=== PATIENT | female | born 1965 | race Caucasian/White ===

== ENCOUNTER → 2016-08-11 | Outpatient (CLI) | payer OTHER ==
--- NOTE | 2016-08-11 14:54 | XR ---
Right elbow HISTORY: Right elbow plain, M25.521 3 views of the right elbow No comparisons Bone mineralization, joint spaces and alignment are maintained. No evident joint effusion. There is o verlying artifact. IMPRESSION: No osseous abnormality evident, consider elbow MRI as indicated
== END | disposition home or self-care (01) ==
LOC: RADXRMAIN 13:07
PROVIDERS: ATTEND Pediatrics
DX: M25.521 Pain in right elbow (principal)

== ENCOUNTER → 2016-09-04 | Outpatient (CLI) | payer OTHER ==
--- NOTE | 2016-09-05 02:09 | MR ---
EXAMINATION TYPE: MR elbow RT wo con DATE OF EXAM: 09/04/2016 9:25 PM COMPARISON: NONE HISTORY: Rt elbow pain x 2 weeks Standard multiplanar, multisequence MRI departmental protocol Multiplanar, multisequence images of the right elbow were acquired. FINDINGS: Bony structures appear intact. Joint spaces appear normal. There is a small elbow joint eff usion. There is mild increased signal in the soft tissues at the lateral collateral ligament. Radial head is intact. I see no focal bone destruction. There is no sign of fracture. Biceps tendon is intac t. Triceps tendon is intact. Brachialis tendon is intact. IMPRESSION: No fracture. Small elbow joint effusion. Mild edema seen around the lateral collateral ligament sugge stive of a partial tear.
== END | disposition home or self-care (01) ==
LOC: RADMRIMAIN 20:38
PROVIDERS: ATTEND Pediatrics
DX: M25.421 Effusion, right elbow (principal)

== ENCOUNTER → 2019-01-31 | Outpatient (CLI) | payer MEDICARE, OTHER ==
--- NOTE | 2019-02-04 08:00 | MM ---
Reason for exam: screening (asymptomatic). Last mammogram was performed 5 years and 4 months ago. History: Patient is postmenopausal and is nulliparous. Family history of breast cancer in paternal aunt at age 60. Physical Findings: A clinical breast exam by your physician is recommended on an annual basis and results should be correlated with mammographic findings. MG 3D Screening Mammo W/Cad Bilateral CC and MLO view(s) were taken. Prior study comparison: October 16, 2013, bilateral digital screening mammo w/CAD. November 11, 2007, mammogram, performed at [facility]. The breast tissue is heterogeneously dense. This may lower the sensitivity of mammography. Focal asymmetry central upper inner quadrant left breast appears more defined. ASSESSMENT: Incomplete: need additional imaging evaluation, BI-RAD 0 RECOMMENDATION: Special view mammogram of the left breast. (3D) If lesion persists on supplemental views, image directed ultrasound is recommended. [facility] will attempt to contact patient to return for supplemental views and ultrasound if indicated.
== END | disposition home or self-care (01) ==
LOC: RADMAMWWP 13:06
PROVIDERS: ATTEND Pediatrics
DX: Z12.31 Encounter for screening mammogram for malignant neoplasm of breast (principal)
CPT/HCPCS: 77063; 77067

== ENCOUNTER → 2019-02-04 | Outpatient (CLI) | payer MEDICARE, OTHER ==
--- NOTE | 2019-02-04 14:10 | MM ---
Reason for exam: additional evaluation requested from abnormal screening. Last mammogram was performed less than 1 month ago. History: Patient is postmenopausal and is nulliparous. Family history of breast cancer in paternal aunt at age 60. Physical Findings: Nurse did not find any significant physical abnormalities on exam. MG 3D Work Up W/Cad LT Spot compression CC, spot compression MLO, and LM view(s) were taken of the left breast. Prior study comparison: January 31, 2019, bilateral MG 3d screening mammo w/cad. October 16, 2013, bilateral digital screening mammo w/CAD. The breast tissue is heterogeneously dense. This may lower the sensitivity of mammography. Benign appearing calcifications in the left breast. The previously seen abnormality resolves on additional views and appears as fibroglandular tissue compatible with summation. No suspicious abnormality. These results were verbally communicated with the patient and result sheet given to the patient on 02/04/19. ASSESSMENT: Benign, BI-RAD 2 RECOMMENDATION: Return to routine screening mammogram schedule for both breasts.
== END | disposition home or self-care (01) ==
LOC: RADMAMWWP 13:11
PROVIDERS: ATTEND Pediatrics
DX: R92.8 Other abnormal and inconclusive findings on diagnostic imaging of breast (principal)
CPT/HCPCS: 77065; G0279; 77061

== ENCOUNTER → 2019-06-03 | Outpatient (CLI) | payer MEDICARE, OTHER ==
--- NOTE | 2019-06-03 16:01 | XR ---
Cervical spine HISTORY: Increasing neck pain aside 5 views of the cervical spine There is multilevel facet arthropathy. The oblique view shows some foraminal encroachment on the righ t at C3-4, C4-5, the left foramina are not as well defined. There is multilevel spondylosis. Anteroli sthesis grade 1 present at C3-4, C4-5 and C5-6. There is loss of disc height at intervertebral at the se levels. Cervical vertebral bodies show preserved height. Bone mineralization is maintained. Prever tebral soft tissues are normal. IMPRESSION: Degenerative disc disease, facet arthropathy, multilevel foraminal encroachment.
--- NOTE | 2019-06-03 16:04 | XR ---
Thoracic spine HISTORY: Mid back pain 3 views of the thoracic spine Thoracic vertebral bodies show preserved height and alignment, bone mineralization. There is multilev el spondylosis present. No paraspinal mass. Some loss of disc height present at the intervertebral le vels of the upper thoracic spine. IMPRESSION: Degenerative disc disease.
--- NOTE | 2019-06-03 16:04 | XR ---
Shoulder HISTORY: Pain 3 views of the left shoulder Arthropathy is present at the acromion clavicular joint. Alignment is maintained. Soft tissue calcifi cation is present just inferior to the distal left clavicle which may be due to calcific tendinitis. Left lung apex as visualized is normal. Bone mineralization is normal. Joint spaces are maintained. D istal acromial spur suspected. IMPRESSION: Correlate for impingement, possible calcific tendinopathy. Shoulder MRI may be of benefit .
== END | disposition home or self-care (01) ==
LOC: RADXRMAIN 11:56
PROVIDERS: ATTEND Physician Assistant
DX: M48.02 Spinal stenosis, cervical region (principal); M50.30 Other cervical disc degeneration, unspecified cervical region; M51.34 Other intervertebral disc degeneration, thoracic region; M46.92 Unspecified inflammatory spondylopathy, cervical region
CPT/HCPCS: 72050; 72070

== ENCOUNTER 2019-07-06 21:20 | Emergency (ER) | payer MEDICARE, OTHER ==
[2019-07-06 21:29] VITALS: PULSE 98; RESP 20; TEMP 98.3
[2019-07-06] MEDS ORDERED: cloNIDine HCL 0.1 MG TAB PO STA (21:39)
[2019-07-06] MEDS ORDERED: LIDOCAINE 1%-EPI 1:100,000 20 ML VIAL SQ STA (21:43)
--- NOTE | 2019-07-06 21:52 | ED ---
ENT HPI - General Chief complaint: ENT Stated complaint: nose bleed Time Seen by Provider: 07/06/19 21:37 Source: patient, family Mode of arrival: ambulatory Limitations: no limitations - History of Present Illness Initial comments: Sherley is a pleasant 44-year-old female who presents the emergency department today for evaluation of nosebleed. Patient reports that her nose is been bleeding for 3-4 hours. She reports that she dabs it with the tissue noted that there is blood. This is been happening throughout the evening. She does report that recently she's had a very dry no she's been using her humidifier putting Vaseline in her nose due to dryness. Patient is not on any anticoagulant or antiplatelet medications. - Related Data Previous Rx's Medication Instructions Recorded Cephalexin [Keflex] 500 mg PO Q12HR 3 Days #6 cap 07/06/19 Allergies Allergy/AdvReac Type Severity Reaction Status Date / Time No Known Allergies Allergy Verified 07/06/19 22:38 Review of Systems ROS Statement: Those systems with pertinent positive or pertinent negative responses have been documented in the HPI. ROS Other: All systems not noted in ROS Statement are negative. Past Medical History Past Medical History: Hyperlipidemia, Hypertension Additional Past Medical History / Comment(s): nose bleeds, depression History of Any Multi-Drug Resistant Organisms: None Reported Past Surgical History: No Surgical Hx Reported Past Psychological History: Anxiety, Depression Smoking Status: Never smoker Past Alcohol Use History: Occasional Past Drug Use History: None Reported General Exam - General Exam Comments Initial Comments: Physical Exam GENERAL: Patient is well-developed and well-nourished. Patient is nontoxic and well-hydrated and is in no distress. HENT: Normocephalic, Atraumatic. Dark venous oozing from anterior septum EYES: PERRL, EOMI No conjunctival pallor PULMONARY: Unlabored respirations. CARDIOVASCULAR: RRR Warm and well perfused extremities ABDOMEN: Non-distended SKIN: No rashes or bruising : Deferred NEUROLOGIC: Alert and oriented Normal speech Normal gait MUSCULOSKELETAL: Moving all extremities with no apparent injury PSYCHIATRIC: No SI/HI Limitations: no limitations Course Vital Signs 07/06/19 07/06/19 07/06/19 21:22 21:41 22:33 Temperature 98.3 F Pulse Rate 98 Respiratory 20 20 Rate Blood Pressure 218/93 187/97 155/84 O2 Sat by Pulse 97 Oximetry 07/06/19 22:47 Temperature Pulse Rate Respiratory 20 Rate Blood Pressure O2 Sat by Pulse Oximetry Medical Decision Making - Medical Decision Making Patient was seen and evaluated history is obtained from the patient. Patient is had venous oozing from her anterior septum for 3-4 hours prior to arrival. Hypertensive otherwise stable. Estimated blood loss was less than 10 mL's over 3-4 hours based on the amount of bleeding she has in the tissues with blood on him she brought with her. Patient has been repeatedly wiping her nose has an appointment any pressure. Post placed onpatient was reevaluated bleeding seemed to have ceased however patient immediately began using a tissue sick her finger up her nose and again began bleeding. Nose was packed with gauze soaked in lidocaine with epinephrine and nasal clamp was again reapplied. Once again on reevaluation that didn't seem to be any active bleeding initially however with any gentle manipulation the nose began bleeding. Decision was made to place anterior packing. Anterior packing was placed. Bleeding ceased. Patient tolerated the procedure well. Follow-up Return parameters were discussed. Patient was given a prescription for Keflex. Patient's and her scheduled to see her primary care physician tomorrow. I advised him to discuss blood pressure management. Follow-up again on Sunday for packing removal. Disposition Clinical Impression: Epistaxis Disposition: HOME SELF-CARE Condition: Stable Instructions (If sedation given, give patient instructions): Nosebleed (ED) Additional Instructions: Follow up with your PCP later this week for removal of the packing on Sunday Take the antibiotics to prevent infection If your nose begins to bleed again, apply the clamp and rest with your head leaned forward If bleeding persists for >30 min after you apply the clamp return to the ER for re-evaluation If you develop any chest pain, shortness of breath, lightheadedness or feel like you are going to pass out, return to the ER Prescriptions: Cephalexin [Keflex] 500 mg PO Q12HR 3 Days #6 cap Is patient prescribed a controlled substance at d/c from ED?: No Referrals: None,Stated [REFERRING] - 1-2 days
[2019-07-06 22:33] VITALS: BP 155/84
== END 2019-07-06 22:51 | disposition home or self-care (01) ==
LOC: EC 21:20
DX: R04.0 Epistaxis (principal); I10 Essential (primary) hypertension
CPT/HCPCS: 30901; 99283

== ENCOUNTER 2019-08-04 07:42 | Day surgery (SDC) | payer MEDICARE, OTHER ==
[2019-07-29 11:27] VITALS: BMI 31.8
[~2019-08-04 07:42] MED LIST: LACTATED RINGERS 1,000 ML IV SCH; LIDOCAINE 1% 20 ML VIAL (10MG/ML) FOR IV START INTRADERMA PRN
[2019-08-04 08:04] VITALS: TEMP 97.9
[2019-08-04] MEDS ORDERED: PROPOFOL 10 MG/ML 20 ML VIAL IV ONE (08:30)
--- NOTE | 2019-08-04 09:01 | P.PCN ---
Date of Procedure: 08/04/19 Description of Procedure: BRIEF HISTORY: Patient is a 54-year-old pleasant female scheduled for an elective colonoscopy as a part of follow-up of positive Cologard. Patient denies any prior endoscopies. No change in bowel habits, blood per rectum or abdominal pain. No family history of colon cancer. The patient was on iron supplementation reports that bowel movements where darker one stool was tested with the Cologard. PROCEDURE PERFORMED: Colonoscopy. PREOPERATIVE DIAGNOSIS: Positive Cologard, no prior colonoscopies. ESTIMATED BLOOD LOSS: Minimal. IV sedation per Anesthesia. PROCEDURE: After informed consent was obtained, the patient, was brought into the endoscopy unit. IV sedation was administered by Anesthesia under continuous monitoring. Digital rectal examination was normal. Initially the Olympus CF-190 flexible video colonoscope was then inserted in the rectum, gradually advanced into the cecum without any difficulty. Careful examination was performed as the scope was gradually being withdrawn. Ileocecal valve and the appendiceal orifice were vis ualized and appeared normal. Prep was excellent. Mucosa of the cecum, ascending colon, transverse colon, descending colon, sigmoid colon, and rectum appeared normal. A few scattered sigmoid diverticula noted. Retroflexion was performed in the rectum and no lesions were seen., Low-grade internal hemorrhoids noted The patient tolerated the procedure well. IMPRESSION: Normal-appearing colon from rectum to cecum. Mild sigmoid diverticulosis. RECOMMENDATIONS: Findings of this examination were discussed with the patient and her brother. Okay to resume diet. Okay to resume medications. Would recommend repeat colonoscopy in 10 years or sooner if signs or symptoms which was further evaluation develop.
[2019-08-04 09:16] VITALS: BP 150/80; PULSE 73; RESP 15
== END 2019-08-04 09:49 | disposition home or self-care (01) ==
LOC: ORWHC2ENDO 07:42
PROVIDERS: ATTEND Internal Medicine
DX: K57.30 Diverticulosis of large intestine without perforation or abscess without bleeding (principal); K64.8 Other hemorrhoids; I10 Essential (primary) hypertension; E78.5 Hyperlipidemia, unspecified; F32.9 Major depressive disorder, single episode, unspecified; Z79.899 Other long term (current) drug therapy; Z98.890 Other specified postprocedural states
CPT/HCPCS: 45378; J2704

== ENCOUNTER → 2019-08-08 | Outpatient (CLI) | payer MEDICARE, OTHER ==
--- NOTE | 2019-08-08 10:31 | US ---
EXAMINATION TYPE: US abdomen limited DATE OF EXAM: 08/08/2019 COMPARISON: NONE CLINICAL HISTORY: R19.00 Intra-abdominal and pelvic swelling, mass. Pt states superficial palpable monica mp midline/right ABD x 6 months EXAM MEASUREMENTS: Liver Length: 18.2 cm Gallbladder Wall: 0.2 cm CBD: 0.4 cm Right Kidney: 10.6 x 3.7 x 4.3 cm Pancreas: 4mm pancreatic duct visualized, tail obscured by overlying bowel gas Liver: Enlarged, heterogeneous, possible subtle hypoechoic lesion left anterior lobe= 1.6 x 1.1 x 1. 6 cm Gallbladder: wnl Evidence for sonographic Llamas's sign: No CBD: wnl Right Kidney: No evidence of hydro, hyperechoic lesion mid/medial= 0.8 x 0.7 x 0.7 cm In area pt feels palpable midline/right ABD is a slightly hyperechoic lesion= 1.6 x 0.9 x 1.9 cm ?l ipoma Visualized pancreas is heterogeneous with artifact identified prepped minimally dilated 3 to 4 mm. I feel it is more likely upper limits of normal. Visualized liver is heterogeneously hyperechoic limiti ng evaluation for focal masses. Technologist marked nonspecific 1.6 cm anterior slightly hypoechoic o ariana lesion. No intrahepatic ductal dilatation. Gallbladder seen without gallstones. Technologist cristian s 8mm hyperechoic lesion anteriorly upper midpole level right kidney could reflect angiomyolipoma. To wards end of study available the lesion in subcutaneous tissue just below skin surface favors focal l ipoma. IMPRESSION: As above. Probable benign 1.6 cm on long axis lipoma within subcutaneous tissue anterior palpable abnormality right mid to lower anterior abdominal wall. Probable fatty infiltration of liver . Possible solid masses within liver and right kidney. Further investigation with multiphase contrast -enhanced CT is advised which can also confirm benign lipoma.
== END | disposition home or self-care (01) ==
LOC: RADUSWWP 09:47
PROVIDERS: ATTEND Pediatrics
DX: R19.00 Intra-abdominal and pelvic swelling, mass and lump, unspecified site (principal)
CPT/HCPCS: 76705

== ENCOUNTER → 2019-08-08 | Outpatient (CLI) | payer MEDICARE, OTHER ==
--- NOTE | 2019-08-08 10:39 | XR ---
EXAM TYPE: LUMBAR SPINE X RAY SERIES COMPARISON: NONE HISTORY: Pain TECHNIQUE: 4 views are submitted. FINDINGS: Alignment is anatomic. The pedicles are intact. The transverse processes are intact. There is hype rtrophic and degenerative change of the spine. Severe changes L5-S1. Facet arthropathy noted. IMPRESSION: 1. Multilevel degenerative disc disease and facet arthropathy with severe changes at L5-S1.
--- NOTE | 2019-08-08 10:40 | XR ---
EXAMINATION TYPE: XR Hip Bilateral Complete DATE OF EXAM: 08/08/2019 COMPARISON: NONE HISTORY: Pain TECHNIQUE: 2 views submitted FINDINGS: There is no evidence of erosive change or acute fracture. Hypertrophic change of the acetabulum bilaterally. No erosive changes. Mild concentric narrowing of t he joint space. IMPRESSION: 1. Arthropathy and hypertrophic changes correlate for femoral acetabular impingement.
== END | disposition home or self-care (01) ==
LOC: RADXRMAIN 10:16
PROVIDERS: ATTEND Physician Assistant
DX: M51.37 Other intervertebral disc degeneration, lumbosacral region (principal); M46.97 Unspecified inflammatory spondylopathy, lumbosacral region; M54.9 Dorsalgia, unspecified
CPT/HCPCS: 72110; 73521; 76705

== ENCOUNTER → 2019-08-20 | Outpatient (CLI) | payer MEDICARE, OTHER ==
--- NOTE | 2019-08-21 08:14 | CT ---
EXAMINATION TYPE: CT abdomen pelvis wo/w con DATE OF EXAM: 08/20/2019 COMPARISON: None HISTORY: Right sided abdominal mass. CT DLP: 2205 mGycm CONTRAST: CT scan of the abdomen and pelvis is performed with Oral Contrast and without and with IV Contrast, p atient injected with 100ml mL of Isovue 300. FINDINGS: LUNG BASES-: No visible nodule. No infiltrate. LIVER/GB: No calcified gallstones. No space occupying hepatic lesion. Biliary tree is of normal ca liber. PANCREAS: No inflammation. No distinct mass. SPLEEN: No splenic enlargement. No lesion seen. ADRENALS: No nodule. No thickening. KIDNEYS/BLADDER: No hydronephrosis. No nephrolithiasis. No distinct renal mass. Urinary bladder g rossly unremarkable. BOWEL: Normal appendix. Normal bowel caliber. No inflammation. GENITAL ORGANS: No gross abnormality. LYMPH NODES: No greater than 1cm abdominal or pelvic lymph nodes are appreciated. AORTA: No significant abnormality. OSSEOUS STRUCTURES: No significant abnormality is seen. OTHER: No significant additional abnormality is seen. IMPRESSION: 1. There is no distinct mass identified.
== END | disposition home or self-care (01) ==
LOC: RADCTMAIN 15:34
PROVIDERS: ATTEND Physician Assistant
DX: R19.00 Intra-abdominal and pelvic swelling, mass and lump, unspecified site (principal)
CPT/HCPCS: 74178; Q9967

== ENCOUNTER → 2020-02-06 | Outpatient (CLI) | payer MEDICARE, OTHER ==
--- NOTE | 2020-02-06 13:09 | XR ---
EXAMINATION TYPE: XR chest 2V DATE OF EXAM: 02/06/2020 COMPARISON: NONE HISTORY: Pruritus TECHNIQUE: Frontal and lateral views of the chest are obtained. FINDINGS: There is no focal air space opacity, pleural effusion, or pneumothorax seen. The cardiac silhouette size is within normal limits. The osseous structures are intact. IMPRESSION: No acute cardiopulmonary process.
== END | disposition home or self-care (01) ==
LOC: RADXRMAIN 11:04
PROVIDERS: ATTEND Pediatrics
DX: L29.9 Pruritus, unspecified (principal)
CPT/HCPCS: 71046

== ENCOUNTER → 2020-03-16 | Outpatient (CLI) | payer MEDICARE, OTHER ==
--- NOTE | 2020-03-17 09:35 | MM ---
Reason for exam: screening (asymptomatic). Last mammogram was performed 1 year and 1 month ago. History: Patient is postmenopausal and is nulliparous. Family history of breast cancer in paternal aunt at age 60. Physical Findings: A clinical breast exam by your physician is recommended on an annual basis and results should be correlated with mammographic findings. MG 3D Screening Mammo W/Cad Bilateral CC and MLO view(s) were taken. Prior study comparison: February 04, 2019, left breast MG 3d work up w/cad LT. January 31, 2019, bilateral MG 3d screening mammo w/cad. The breast tissue is heterogeneously dense. This may lower the sensitivity of mammography. Stable benign calcifications. Upper outer quadrant nodule right breast. ASSESSMENT: Incomplete: need additional imaging evaluation, BI-RAD 0 RECOMMENDATION: Special view mammogram and ultrasound of the right breast. [facility] will attempt to contact patient to return for supplemental views and ultrasound.
== END | disposition home or self-care (01) ==
LOC: RADMAMWWP 13:55
PROVIDERS: ATTEND Pediatrics
DX: Z12.31 Encounter for screening mammogram for malignant neoplasm of breast (principal)
CPT/HCPCS: 77063; 77067

== ENCOUNTER → 2020-04-06 | Outpatient (CLI) | payer MEDICARE, OTHER ==
--- NOTE | 2020-04-07 09:05 | MM ---
Reason for exam: additional evaluation requested from abnormal screening. Last mammogram was performed 1 month ago. History: Patient is postmenopausal and is nulliparous. Family history of breast cancer in paternal aunt at age 60. Took hormonal contraceptives for 30 years. Physical Findings: Nurse did not find any significant physical abnormalities on exam. MG 3D Work Up W/Cad RT Spot compression CC, spot compression MLO, and ML view(s) were taken of the right breast. Prior study comparison: March 16, 2020, bilateral MG 3d screening mammo w/cad. February 04, 2019, left breast MG 3d work up w/cad LT. The breast tissue is heterogeneously dense. This may lower the sensitivity of mammography. Finding: There is a 6-7 mm circumscribed oval mass located 6-7 cm from the nipple in the lower outer quadrant, posterior, middle position of the right breast, persists on additional views. These results were verbally communicated with the patient and result sheet given to the patient on 04/06/20. ASSESSMENT: Incomplete: need additional imaging evaluation, BI-RAD 0 RECOMMENDATION: Ultrasound of the right breast.
--- NOTE | 2020-04-07 09:07 | USB ---
Reason for exam: additional evaluation requested from abnormal screening. History: Patient is postmenopausal and is nulliparous. Family history of breast cancer in paternal aunt at age 60. Took hormonal contraceptives for 30 years. US Breast Workup Limited RT Right limited breast ultrasound including focal area of concern, retroareolar and axilla demonstrates a 0.6 x 0.6 x 0.3cm oval, cystic cluster at 8 o'clock and a 1.9 x 2.1 x 1.2cm lymph node at the axilla. These results were verbally communicated with the patient and result sheet given to the patient on 04/06/20. ASSESSMENT: Probably benign, BI-RAD 3 RECOMMENDATION: Follow-up diagnostic mammogram and ultrasound of the right breast in 6 months.
== END | disposition home or self-care (01) ==
LOC: RADMAMWWP 15:06
PROVIDERS: ATTEND Pediatrics
DX: R92.8 Other abnormal and inconclusive findings on diagnostic imaging of breast (principal)
CPT/HCPCS: 77065; 76642; G0279; 77061

== ENCOUNTER → 2020-09-24 | Outpatient (CLI) | payer MEDICARE, OTHER ==
--- NOTE | 2020-09-24 15:13 | XR ---
Left hip history: Trauma 2 months prior, pain 2 views of left hip Bone mineralization and alignment are maintained. Joint space within normal limits. Probable phleboli ths present within the pelvis. IMPRESSION: No fracture or dislocation. MRI may be of benefit.
== END | disposition home or self-care (01) ==
LOC: RADXRMAIN 14:18
PROVIDERS: ATTEND Physician Assistant
DX: M25.552 Pain in left hip (principal)
CPT/HCPCS: 73502

== ENCOUNTER → 2020-11-19 | Outpatient (CLI) | payer MEDICARE, OTHER | END | disposition home or self-care (01) | LOC: LABWHC1 17:00 | PROVIDERS: ATTEND Pediatrics | DX: U07.1 COVID-19 (principal) | CPT/HCPCS: 87502; U0003; C9803; U0005 ==

== ENCOUNTER → 2020-12-14 | Outpatient (CLI) | payer MEDICARE, OTHER ==
--- NOTE | 2020-12-15 09:54 | MM ---
Reason for exam: follow-up at short interval from prior study. Last mammogram was performed 8 months ago. History: Patient is postmenopausal and is nulliparous. Family history of breast cancer in paternal aunt at age 60 and breast cancer in paternal aunt. Took hormonal contraceptives for 30 years. Physical Findings: Nurse did not find any significant physical abnormalities on exam. MG 3D Diag Mammo W/Cad RT CC, MLO, and XCCL view(s) were taken of the right breast. Prior study comparison: April 06, 2020, right breast MG 3d work up w/cad RT. March 16, 2020, bilateral MG 3d screening mammo w/cad. The breast tissue is heterogeneously dense. This may lower the sensitivity of mammography. New nodule 3mm upper inner quadrant 6.5cm from nipple. Stable 9mm nodule 8-9 o'clock 4.5cm from nipple. These results were verbally communicated with the patient and result sheet given to the patient on 12/14/20. ASSESSMENT: Incomplete: need additional imaging evaluation, BI-RAD 0 RECOMMENDATION: Ultrasound of the right breast.
--- NOTE | 2020-12-15 09:58 | USB ---
Reason for exam: additional evaluation requested from abnormal screening. History: Patient is postmenopausal and is nulliparous. Family history of breast cancer in paternal aunt at age 60 and breast cancer in paternal aunt. Took hormonal contraceptives for 30 years. US Breast Limited RT Technologist: Samira Lim Right limited breast ultrasound including focal area of concern, retroareolar and axilla demonstrates a 0.4 x 0.4 x 0.3cm cystic cluster at 1 o'clock, a 0.8 x 0.7 x 0.5cm cysti cluser samantha complicated cyst at 8 o'clock and duct with internal echoes/debris at the nipple. Probably benign, 3 month follow up recommended. These results were verbally communicated with the patient and result sheet given to the patient on 12/14/20. ASSESSMENT: Probably benign, BI-RAD 3 RECOMMENDATION: Follow-up diagnostic mammogram of both breasts in 3 months. Ultrasound of the right breast in 3 months.
== END | disposition home or self-care (01) ==
LOC: RADMAMWWP 12:54
PROVIDERS: ATTEND Pediatrics
DX: R92.2 Inconclusive mammogram (principal)
CPT/HCPCS: 77065; 76642; G0279; 77061

== ENCOUNTER 2021-03-24 06:36 | Day surgery (SDC) | payer MEDICARE, OTHER ==
[2021-03-24 10:51] VITALS: RESP 16; TEMP 98.7
[2021-03-24 11:01] LABS: Glucose,Whole Blood 100 mg/dL (75-99)
[2021-03-24] MEDS ORDERED: LACTATED RINGERS 1,000 ML IV ONE (11:03)
[2021-03-24] MEDS ORDERED: PROPOFOL 10 MG/ML 20 ML VIAL IV ONE (11:42)
[2021-03-24] MEDS ORDERED: LIDOCAINE 1% INJ 10MG/ML (20 ML MDV) ONE (11:42)
--- NOTE | 2021-03-24 11:57 | P.PCN ---
Date of Procedure: 03/24/21 Procedure(s) Performed: BRIEF HISTORY: Patient is a 55-year-old, pleasant, female scheduled for an upper endoscopy as a part of evaluation of epigastric pain and persistent nausea for the last 2 months duration. Patient is a was started on Protonix and Zofran is feeling much better.. PROCEDURE PERFORMED: Esophagogastroduodenoscopy with biopsy. PREOPERATIVE DIAGNOSIS: Epigastric pain and nausea of 2 months duration. IV sedation per anesthesia. PROCEDURE: After informed consent was obtained, the patient was brought into the endoscopy unit. IV sedation was administered by Anesthesia under continuous monitoring. Initially the Olympus GIF-140 video endoscope was inserted into the mouth. Esophagus intubated without any difficulty. It was gradually advanced into the stomach and duodenum and carefully examined. The bulb and the second part of the duodenum appeared normal. His were done from the duodenum to rule out celiac disease. The scope at this time was withdrawn to the stomach, adequately insufflated with air, and upon careful examination, mucosa of the antrum, gastritis and biopsies were done from this area. In the body the stomach there was retained food noted suggestive of gastric varices but no evidence of gastric outlet obstruction. Rest of the body, cardia and the fundus appeared normal. The scope was then withdrawn into the esophagus. The GE junction was located at 39 cm from the incisors. The esophagus appeared normal. There were no erosions or ulcerations seen and the patient tolerated the procedure well. IMPRESSION: 1.. Retained food in the stomach the stomach suggestive of gastroparesis. 2. Mild antral gastritis. RECOMMENDATIONS: The findings of this examination were discussed with the patient as well as her family. She was advised to continue with Protonix 40 mg daily and Zofran as needed and small frequent meals. She'll be seen in office in 2-3 months..
[2021-03-24 12:14] VITALS: BP 117/71; PULSE 92
== END 2021-03-24 12:29 | disposition home or self-care (01) ==
LOC: ORWHC2ENDO 06:36
PROVIDERS: ATTEND Internal Medicine Gastroenterology
DX: K29.50 Unspecified chronic gastritis without bleeding (principal); I10 Essential (primary) hypertension; E78.5 Hyperlipidemia, unspecified; Z79.899 Other long term (current) drug therapy
CPT/HCPCS: 88305; 43239; J2001; J2704

== ENCOUNTER → 2021-07-15 | Outpatient (CLI) | payer MEDICARE, OTHER ==
[2021-07-15 15:04] LABS: Basophils # (A) 0.13 X 10*3/uL (0.00-0.10); Basophils % (A) 1.5 %; Eosinophils # (A) 0.26 X 10*3/uL (0.04-0.35); HCT 41.7 % (37.2-46.3); HGB 13.9 g/dL (12.0-15.0); Lymphocytes # (A) 2.76 X 10*3/uL (0.90-5.00); Lymphocytes % (A) 32.1 %; MCH 29.8 pg (27.0-32.0); MCHC 33.3 g/dL (32.0-37.0); MCV 89.5 fL (80.0-97.0); Mean Platelet Volume 11.5 fL (9.5-12.2); Monocytes # (A) 0.56 X 10*3/uL (0.20-1.00); Monocytes % (A) 6.5 %; Neutrophils # (A) 4.87 X 10*3/uL (1.80-7.70); Neutrophils % (A) 56.6 %; Platelet Count 390 X 10*3/uL (140-440); RBC 4.66 X 10*6/uL (4.10-5.20); RDW 12.7 % (11.5-14.5); Reticulocyte % 2.08 % (0.10-1.80); WBC 8.61 X 10*3/uL (4.50-10.00)
[2021-07-15 17:39] LABS: % Iron Saturation 24.96 (12.00-45.00); ALT 77 U/L (8-44); AST 78 U/L (13-35); African American GFR (CKD) 76.1 (60.0-200.0); Albumin 5.1 g/dL (3.8-4.9); Albumin/Globulin Ratio 2.09 (1.60-3.17); Alkaline Phosphatase 50 U/L (41-126); BUN/Creat Ratio 12.12 Ratio (12.00-20.00); Blood Urea Nitrogen 11.7 mg/dL (9.0-27.0); Calcium 10.7 mg/dL (8.7-10.3); Carbon Dioxide 24.4 mmol/L (20.0-27.5); Chloride 97 mmol/L (96-109); Chol/HDL Ratio 3.35 Ratio; Globulin 2.4 g/dL (1.6-3.3); Glucose 109 mg/dL (70-110); Iron 116 ug/dL (50-170); LDL Cholesterol,Calculated 113.8 mg/dL (0.0-131.0); Non-African American GFR(CKD) 65.7 (60.0-200.0); Potassium 4.1 mmol/L (3.5-5.5); Sodium 138 mmol/L (135-145); Total Iron Binding Capacity 465 ug/dL (228-460); Total Protein 7.5 g/dL (6.2-8.2)
== END | disposition home or self-care (01) ==
LOC: LABWHC1 09:04
PROVIDERS: ATTEND Physician Assistant
DX: E78.6 Lipoprotein deficiency (principal); D64.9 Anemia, unspecified; I10 Essential (primary) hypertension; D11.9 Benign neoplasm of major salivary gland, unspecified
CPT/HCPCS: 36415; 80053; 80061; 82607; 82728; 82746; 83036; 83540; 83550; 85025; 85045

== ENCOUNTER → 2021-08-09 | Outpatient (CLI) | payer MEDICARE, OTHER ==
--- NOTE | 2021-08-11 12:41 | MM ---
Reason for exam: follow-up at short interval from prior study. Last mammogram was performed 8 months ago. History: Patient is postmenopausal and is nulliparous. Family history of breast cancer in paternal aunt at age 60 and breast cancer in paternal aunt. Took hormonal contraceptives for 30 years. Physical Findings: Nurse did not find any significant physical abnormalities on exam. MG 3D Diag Mammo W/Cad JACQUELINE Bilateral CC and MLO view(s) were taken. Prior study comparison: December 14, 2020, right breast MG 3d diag mammo w/cad RT. April 06, 2020, right breast MG 3d work up w/cad RT. The breast tissue is heterogeneously dense. This may lower the sensitivity of mammography. 8-9 o'clock right breast nodularity seen on 03/16/20 no longer seen. Benign oil cyst calcifications posterior left MLO asymmetric density is unchanged compared to 2019. These results were verbally communicated with the patient and result sheet given to the patient on 08/09/21. ASSESSMENT: Incomplete: need additional imaging evaluation, BI-RAD 0 RECOMMENDATION: Ultrasound of the right breast. (as ordered)
--- NOTE | 2021-08-11 12:44 | USB ---
Reason for exam: additional evaluation requested from abnormal screening. History: Patient is postmenopausal and is nulliparous. Family history of breast cancer in paternal aunt at age 60 and breast cancer in paternal aunt. Took hormonal contraceptives for 30 years. US Breast Limited RT Technologist: Samira Lim Right limited breast ultrasound including focal area of concern, retroareolar and axilla demonstrates a 0.4 x 0.3 x 0.3cm cystic, benign lesion at 1 o'clock, a 0.8 x 0.6 x 0.5cm stable, benign, cyst cluster at 8 o'clock and a 0.3 x 0.4 x 0.2cm duct ectasia at the nipple, possible debris in a duct, stable for 6 months, continued follow up recommended. Scanned 12-3 o'clock and 8 o'clock. These results were verbally communicated with the patient and result sheet given to the patient on 08/09/21. ASSESSMENT: Probably benign, BI-RAD 3 RECOMMENDATION: Ultrasound of the right breast in 6 months. (nipple)
== END | disposition home or self-care (01) ==
LOC: RADMAMWWP 13:08
PROVIDERS: ATTEND Pediatrics
DX: R92.8 Other abnormal and inconclusive findings on diagnostic imaging of breast (principal); R79.89 Other specified abnormal findings of blood chemistry
CPT/HCPCS: 77066; 76642; G0279; 77062

== ENCOUNTER → 2021-08-29 | Outpatient (CLI) | payer MEDICARE, OTHER ==
--- NOTE | 2021-08-29 14:08 | US ---
EXAMINATION TYPE: US abdomen limited DATE OF EXAM: 08/29/2021 COMPARISON: US 08/08/2019, & CT 08/20/2019 CLINICAL HISTORY: 56-year-old female R79.89 elevated ferritin level. TECHNIQUE: Multiple sonographic images of the right upper quadrant are obtained. FINDINGS: EXAM MEASUREMENTS: Liver Length: 13.5 cm Gallbladder Wall: 0.3 cm CBD: 0.3 cm Right Kidney: 11.9 x 3.8 x 5.2 cm Pancreas: Only portions of the pancreatic body are visualized. The head and tail are scattered by etgan wel gas shadowing. Liver: Some increased echogenicity and slight coarsened echotexture. No focal lesion. Gallbladder: appears contracted, echogenic focus appears fixed to the anterior wall and measures 0.3 cm. No pericholecystic fluid. Evidence for sonographic Llamas's sign: No CBD: wnl Right Kidney: Nonshadowing echogenic area at the mid pole measuring 0.8 x 0.5 x 1.2 cm. No hydronep hrosis. IMPRESSION: 1. Correlate for underlying hepatic steatosis with LFTs, liver profile, and patient risk factors. 2. Suspect a 3 mm gallbladder wall polyp. This can be reassessed on a 6 month follow-up. 3. A 1.2 cm echogenic area at the mid to lower pole of the right kidney measuring 8 mm on 08/08/2019. AML is suspected given indolent behavior. This should also be reassessed at the 6 month follow-up.
[2021-08-29 19:33] LABS: C Reactive Protein <0.30 mg/dL (0.00-0.80); Rheumatoid Factor, Qnt <10 IU/mL (0-15)
[2021-08-29 20:50] LABS: HIV 2 AB Non-Reactive (Non-Reactive); HIV AB P24 Non-Reactive (Non-Reactive); HIV P24 AG Non-Reactive (Non-Reactive)
[2021-08-29 21:35] LABS: Hepatitis A Antibody IgM Nonreactive (Nonreactive); Hepatitis B Core IgM Nonreactive (Nonreactive); Hepatitis B Surface Antigen Nonreactive (Nonreactive); Hepatitis C IgG Antibody Nonreactive (Nonreactive)
== END | disposition home or self-care (01) ==
LOC: RADUSWWP 11:06
PROVIDERS: ATTEND Pediatrics
DX: R79.89 Other specified abnormal findings of blood chemistry (principal); R92.8 Other abnormal and inconclusive findings on diagnostic imaging of breast
CPT/HCPCS: 76705; 80074; 82728; 85652; 86038; 86140; 86431; 87390

== ENCOUNTER → 2021-10-28 | Outpatient (CLI) | payer MEDICARE, OTHER ==
--- NOTE | 2021-10-28 16:05 | NM ---
EXAMINATION TYPE: NM hepatobiliary w EF DATE OF EXAM: 10/28/2021 COMPARISON: Ultrasound 08/29/2021 HISTORY: Abnormal ultrasound TECHNIQUE: After the intravenous administration of 4.52 mCi Tc 99m Mebrofenin hepatobiliary scintigra phy is performed. Immediate images post injection. FINDINGS: There is satisfactory initial accumulation of tracer by the liver. The gallbladder is visualized wit hin 10 minutes. The small bowel activity is noted within 2 minutes. At one hour 8 ounces of oral en sure plus is given to mimic CCK and gallbladder ejection fraction is calculated at 19 %, below the lo wer end of normal range. Therefore there is no scintigraphic evidence of cystic or common bile duct obstruction to suggest acute cholecystitis or gallbladder dyskinesia. IMPRESSION: Findings could be indicative of gall bladder dyskinesia
== END | disposition home or self-care (01) ==
LOC: RADNMMAIN 12:58
PROVIDERS: ATTEND Pediatrics
DX: R93.5 Abnormal findings on diagnostic imaging of other abdominal regions, including retroperitoneum (principal)
CPT/HCPCS: 78226; A9537

== ENCOUNTER → 2022-03-09 | Outpatient (CLI) | payer MEDICARE, OTHER ==
--- NOTE | 2022-03-10 15:50 | MM ---
Reason for Exam: Follow-up at short interval from prior study. Last screening mammogram was performed 7 month(s) ago. Patient History: Menarche at age 11. Patient has no children. Postmenopausal. Patient used Hormonal Contraceptives for 30 years. Paternal aunt had breast cancer, age 60. Paternal aunt had breast cancer. Risk Values: Ciera 5 year model risk: 1.5%. NCI Lifetime model risk: 9.7%. Prior Study Comparison: 04/06/2020 Right Diagnostic Mammogram, [facility]. 12/14/2020 Right Diagnostic Mammogram, [facility]. 08/09/2021 Bilateral Diagnostic Mammogram, [facility]. Tissue Density: Right: The breast tissue is heterogeneously dense. This may lower the sensitivity of mammography. Findings: Analyzed By CAD. Redemonstrated benign oil cyst calcifications and chronic nipple retraction. The 8-9 o'clock nodular focal asymmetry at a middle depth remains unchanged for 6 months. Ongoing follow-up recommended. Overall Assessment: Probably benign, BI-RAD 3 Management: Diagnostic Mammogram of both breasts in 6 months. Total one-year follow-up right breast and annual exam of the left breast. Patient should continue monthly self breast exams. This exam should not preclude additional follow-up of suspicious palpable abnormalities. Results were given to the patient verbally at the time of exam. Electronically signed and approved by: Hortencia Garcia M.D. Radiologist
== END | disposition home or self-care (01) ==
LOC: RADMAMWWP 14:49
PROVIDERS: ATTEND Pediatrics
DX: R92.8 Other abnormal and inconclusive findings on diagnostic imaging of breast (principal)
CPT/HCPCS: 77065; G0279; 77061

== ENCOUNTER → 2022-11-02 | Outpatient (CLI) | payer MEDICARE, OTHER ==
--- NOTE | 2022-11-02 12:17 | US ---
EXAMINATION TYPE: US abdomen complete DATE OF EXAM: 11/02/2022 COMPARISON: 08/29/2021 CLINICAL HISTORY: 57-year-old female R94.8 ABN BILLIARY HIDA. Abnormal GB TECHNIQUE: Multiple sonographic images of the abdomen are obtained. FINDINGS: EXAM MEASUREMENTS: Liver Length: 20.9 cm Gallbladder Wall: 0.2 cm CBD: 0.5 cm Spleen: 8.4 cm Right Kidney: 10.6 x x 4.3 x 4.6 cm Left Kidney: 10.7 x 5.0 x 5.8 cm Pancreas: Only a portion of the pancreatic body is seen. The majority is obscured by bowel gas shado wing. Liver: Enlarged in size. Echogenic and attenuating. The secondary limits assessment for focal lesio ns. Gallbladder: Anterior echogenic focus adjacent to wall= 0.3 x 0.2 x 0.2 cm. No abnormal distention, wall thickening, pericholecystic fluid, or shadowing calculi. Evidence for sonographic Llamas's sign: neg CBD: wnl Spleen: wnl Right Kidney: No hydronephrosis or masses seen Left Kidney: Dromedary hump seen . No hydronephrosis. Upper IVC: wnl Abd Aorta: Limited visualization, distal not visualized IMPRESSION: 1. Hepatomegaly at 20.9 cm with severe hepatic steatosis. This secondarily limits assessment for foca l lesions. Correlate with LFTs, lipid profile, and patient risk factors. 2. No gallstones or biliary ductal dilatation. 3. There is a 3 mm echogenic nodule along the anterior gallbladder wall,, unchanged from the exam suggestive of a benign gallbladder wall polyp.
== END | disposition home or self-care (01) ==
LOC: RADUSWWP 09:24
PROVIDERS: ATTEND Pediatrics
DX: K76.0 Fatty (change of) liver, not elsewhere classified (principal); R16.0 Hepatomegaly, not elsewhere classified; K82.8 Other specified diseases of gallbladder; R94.8 Abnormal results of function studies of other organs and systems; R92.8 Other abnormal and inconclusive findings on diagnostic imaging of breast
CPT/HCPCS: 76700

== ENCOUNTER → 2023-03-16 | Outpatient (CLI) | payer MEDICARE, OTHER ==
--- NOTE | 2023-03-16 13:59 | XR ---
EXAM TYPE: LUMBAR SPINE X RAY SERIES COMPARISON: 08/08/2019 HISTORY: Pain TECHNIQUE: 4 views are submitted. FINDINGS: Alignment is anatomic. The pedicles are intact. The transverse processes are intact. There is dillon re degenerative disc disease L5-S1 with facet arthropathy and probable foraminal encroachment. Multil evel hypertrophic and degenerative disc disease. SI joints appear patent. IMPRESSION: 1. Severe degenerative disc disease L5-S1 stable from prior exam with facet arthropathy and suspected foraminal encroachment.
--- NOTE | 2023-03-16 14:00 | XR ---
EXAMINATION TYPE: XR thoracic spine complete DATE OF EXAM: 03/16/2023 COMPARISON: 06/03/2019 HISTORY: Pain TECHNIQUE: 3 views submitted FINDINGS: Alignment is anatomic. There is no compression deformities. Multilevel mild hypertrophic and degener ative disc disease. IMPRESSION: 1. Multilevel hypertrophic and degenerative change.
== END | disposition home or self-care (01) ==
LOC: RADXRMAIN 13:17
PROVIDERS: ATTEND Physician Assistant
DX: M51.37 Other intervertebral disc degeneration, lumbosacral region (principal); M47.814 Spondylosis without myelopathy or radiculopathy, thoracic region; M89.8X8 Other specified disorders of bone, other site
CPT/HCPCS: 72072; 72110

== ENCOUNTER → 2023-11-09 | Outpatient (CLI) | payer MEDICARE, OTHER ==
[2023-11-09 11:33] LABS: African American GFR (CKD) 79 (>60 ml/min/1.73 sqM); Anion Gap 5 mmol/L; Blood Urea Nitrogen 24 mg/dL (7-17); Calcium 9.5 mg/dL (8.4-10.2); Carbon Dioxide 26 mmol/L (22-30); Chloride 107 mmol/L (98-107); Glucose 75 mg/dL (74-99); Non-African American GFR(CKD) 68 (>60 ml/min/1.73 sqM); Potassium 3.9 mmol/L (3.5-5.1); Sodium 138 mmol/L (137-145)
--- NOTE | 2023-11-09 14:19 | CT ---
EXAMINATION TYPE: CT abdomen pelvis w con DATE OF EXAM: 11/09/2023 COMPARISON: 08/20/2019 INDICATION: LLQ/GROIN PAIN. DLP: 946.60 mGycm, Automated exposure control for dose reduction was used. CONTRAST: 100ML mL of Isovue 300. Study performed with Oral Contrast TECHNIQUE: Axial images were obtained from above the diaphragm to the pubic rami in the axial plane a t 5 mm thick sections. Reconstructed images are reviewed on the computer in the coronal plane. FINDINGS: Limited CT sections are obtained the lung bases. The lung bases are clear. CT ABDOMEN: Liver: Normal Spleen: Normal Pancreas: Normal Adrenal glands: Left adrenal gland has mild thickening at 1.3 cm. Right adrenal gland appears normal. Gallbladder: Normal Kidneys: No masses are evident. No hydronephrosis is present. No large cysts are present. Delayed images were obtained through the kidneys, small cortical renal cysts are more apparent on the delayed images. Aorta: Vascular calcification is within the aorta. Inferior vena cava: Normal. CT PELVIS: Loops of bowel within the abdomen and pelvis are normal. Few scattered small diverticula within the sigmoid colon. No adjacent inflammatory changes are evident to suggest acute diverticulitis. There are loops of bowel which are incompletely distended or lack oral contrast limiting their evaluation. Appendix: Normal as visualized. Urinary bladder: Normal. Genitourinary structures: Uterus and adnexa are normal Osseous structures: No suspicious lytic or sclerotic lesions. IMPRESSION: 1. Minimal stable appearing prominence of the left adrenal gland. 2. Tiny cortical renal cysts bilateral kidneys. 3. Mild diverticulosis without acute diverticulitis.
== END | disposition home or self-care (01) ==
LOC: RADCTMAIN 10:45
PROVIDERS: ATTEND Internal Medicine
DX: K57.30 Diverticulosis of large intestine without perforation or abscess without bleeding (principal); N28.1 Cyst of kidney, acquired; E27.8 Other specified disorders of adrenal gland
CPT/HCPCS: 80048; 74177; 36415; Q9967

== ENCOUNTER → 2023-11-19 | Outpatient (CLI) | payer MEDICARE, OTHER ==
--- NOTE | 2023-11-19 09:29 | XR ---
EXAMINATION TYPE: XR Hip Complete 2 views RT DATE OF EXAM: 11/19/2023 Comparison: None Clinical History: 58-year-old female M25.551 R hip pain for 2 months Findings: There is mild degenerative change of the right hip ON marginal spurring. There is an ossific density measuring 1.8 cm located in. Possible donor site anterior inferior iliac spine. Otherwise, no acute f racture, subluxation, or dislocation seen. Impression: 1. A 1.8 cm bone fragment located above the hip. Consider the possibility of a subacute or chronic av ulsion fracture from the AIIS which would correspond to the origin of the rectus femoris. 2. Mild right hip OA.
== END | disposition home or self-care (01) ==
LOC: RADXRMAIN 08:45
PROVIDERS: ATTEND Internal Medicine
DX: M16.11 Unilateral primary osteoarthritis, right hip (principal); M25.851 Other specified joint disorders, right hip
CPT/HCPCS: 73502

== ENCOUNTER → 2024-03-22 | Outpatient (CLI) | payer MEDICARE, OTHER ==
--- NOTE | 2024-04-09 09:06 | MR ---
Site ID synapse default Patient Sherley Corey K ID [id number] Age/Gender: 58Y, F Order # N/A Procedure MR lumbar wo con Date 03/22/2024 10:00:29 AM EXAMINATION TYPE: MR lumbar spine wo con DATE OF EXAM: 03/22/2024 COMPARISON: CT abdomen and pelvis 11/09/2023, MRI lumbar spine 05/24/2023 HISTORY: Low back pain that radiates down right leg TECHNIQUE: Multiplanar, multisequence images of the lumbar spine were acquired without IV contrast. FINDINGS: The lumbar vertebral bodies do have preserved heights. No spondylolisthesis. Straightening of the normal lumbar lordosis. Multilevel disc desiccation is present. Disc height loss at L4-L5 and L5-S1. Type I Modic changes involving the L4-L5 endplates with STIR signal. Type II Modic changes in volving the L5-S1 endplates. The conus medullaris and the distal spinal cord do appear unremarkable w ith regards to their signal intensity and morphology. Multilevel anterior osteophytosis. L1-L2: No significant disc pathology is identified. The spinal canal and neural foramen are patent. L2-L3: No significant disc pathology is identified. The spinal canal and neural foramen are patent. L3-L4: Broad-based disc bulge and ligamentum flavum buckling and bilateral facet arthropathy with ep idural lipomatosis posteriorly. This results in moderate central canal stenosis. Minimal bilateral ne uroforaminal stenosis. L4-L5: Broad-based disc bulge with ligamentum flavum buckling and facet arthropathy bilaterally. Michelle lar fissure identified. The contributing to moderate to severe central canal stenosis. Moderate right and [id number] left neural foraminal stenosis. L5-S1: Tiny central disc protrusion superimposed upon a broad-based disc bulge without central canal stenosis. Bilateral facet arthropathy. Mild left and [id number] right neuroforaminal stenosis. Other significant findings: None. IMPRESSION: 1. Progression of moderate multilevel disc degeneration with associated osteoarthritic changes of th e lower lumbar spine. L4-L5 disc bulge with ligamentum flavum buckling and facet arthropathy contribu te to moderate to severe central canal stenosis. At L3-L4 there is moderate central canal stenosis se condary to disc bulge with ligamentum flavum buckling, facet arthropathy, and epidural lipomatosis. 2. Tiny L5-S1 disc protrusion without central canal stenosis. Varying degrees of neural foraminal st enosis as described above. 3. Type 1 Modic changes involving the L4-L5 endplates indicating inflammation/edema.
== END | disposition home or self-care (01) ==
LOC: RADMRIMAIN 10:00
PROVIDERS: ATTEND Internal Medicine
DX: M54.16 Radiculopathy, lumbar region (principal); M48.07 Spinal stenosis, lumbosacral region; M51.36 Other intervertebral disc degeneration, lumbar region; M47.816 Spondylosis without myelopathy or radiculopathy, lumbar region; E88.2 Lipomatosis, not elsewhere classified; R60.9 Edema, unspecified; M99.73 Connective tissue and disc stenosis of intervertebral foramina of lumbar region
CPT/HCPCS: 72148

== ENCOUNTER → 2024-03-26 | Outpatient (CLI) | payer MEDICARE, OTHER ==
[2024-03-26 08:42] VITALS: BP 152/83; PULSE 85; RESP 16; TEMP 98.4
--- NOTE | 2024-03-26 14:00 | P.PAINPG ---
PQRS Measure Charge Sheet Mode of Arrival: Ambulatory Comment: HISTORY OF PRESENT ILLNESS: A 58 yr old female as a referral from [facility] presents today w severe and chronic LBP > 3 mo secondary to radiculopathy, spondylosis and facet arthropathy without myelopathy for evaluation. Pt states pain level is provoked at 10 /10 in intensity, constant, localized in the lumbar spine, predominantly axial, sharp in character w occasional shooting pain towards the R foot. Pain is provoked by over activity. Pain is alleviated by PT x 6 wks which ended in Feb 2024, physician guided home stretches daily since Feb 2024, medications (Naproxen, Neurontin 300mg #90), manual massage, repositioning and rest . PMH: OA, Hyperlipidemia, HTN, MDD/ Anxiety PSH: Colonoscopy (2019), EGD (2020), SH: Never smoker, Occasional ETOH use, No illicit drug use FH: Non contributory All: See list Meds: See list REVIEW OF ORGAN SYSTEMS: CONSTITUTIONAL: No fevers or chills. No recent weight loss. NEUROLOGICAL: + numbness and tingling along the distal extremities. No seizure disorders or headaches. MUSCULOSKELETAL: + pain PSYCHIATRIC: Denies current depression or suicidal thoughts. Physical Examinations : Constitutional : Cooperative , not in acute distress . Neurologic : Cranial nerve II to XII intact. No focal neurological deficits. Psychiatric : alert & oriented x 3. Matching mood & appropriate affect. Judgment & insight intact. Musculoskeletal : Cervical Spine Motor strength in the deltoid and biceps: Normal right side. Normal Left side Motor strength biceps and the wrist extensors: Normal right side . Normal left side Motor strength in the triceps muscle: Normal right side. Normal left side Deep tendon reflexes: Normal at the biceps. Normal at Brachioradialis. Normal at triceps Vertebral body tenderness to deep palpation over Cervical facet loading test: positive bilaterally Spurling test: positive bilaterally Neck distraction test: positive bilaterally Yael sign: positive bilaterally Lumbar spine Motor strength lower extremities ,thigh and legs 5/5 Right side , 5/5 Left side Deep tendon reflexes : Normal Knee Jerk. Normal Ankle Jerk Vertebral body tenderness over L5 Schwartz Test positive R> L L5-S1 Lumbar facet Loading Test: positive Right / positive Left Range of motion of the lumbar spine Flexion 30 degrees, extension 10 degrees Straight Leg Raise test: Left/ Right positive at degrees Kalee test: positive right / positive left. Severe tenderness over the Sacroiliac joint on the Right / Left sides Gaenslen test: positive bilaterally Seated flexion test: positive bilaterally. Sacral spine : Severe tenderness over the Sacroiliac joint: right side / left side Range of motion: Flexion of the lumbar spine <60 degrees Range of motion: Extension of the lumbar spine <20 degrees Gaenslen's Test positive Kalee test: positive right side / left side Thigh Thrust Test Sacral Thrust Test Imaging: X ray lumbar spine from 03/19/24 reviewed Assessment/ Plan : Lumbar radiculopathy Recommendation of EMILY L5-S1 #1. Risks, benefits of procedure discussed and patient verbalized understanding. Admits to anti- coagulant use or medical history of diabetes. Protocol for discontinuation/ continuation of medications julio procedure discussed. Young 5/325mg #15 NR Use, side effects, adverse reactions, safe storage discussed. All questions answered. I have spent greater than 30 minutes on patient care today. Dr Camara was available by phone for the evaluation of this patient. The time was used to review the medical records including relevant urine studies and Prescription history (MAPs), review of the available imaging, evaluation and examination of the patient, coordination of care with the medical staff and if applicable referring physicians, as well as creation of the medical record - Pain Location Left Lower Back Non-Pharmacological Interventions: Distraction Pharmacological Interventions: PRN Medication PQRS Narrative: Smoking Status Never smoker Scale Used Numeric (1 - 10) Hx Alcohol Use (MH) No Home Medications: Ambulatory Orders Atorvastatin [Lipitor] 10 mg PO HS 07/29/19 DULoxetine HCL [Cymbalta] 120 mg PO DAILY 07/29/19 Fenofibrate,Micronized [Fenofibrate] 134 mg PO HS 07/29/19 Ibuprofen 800 mg PO TID PRN 07/29/19 Losartan/Hydrochlorothiazide [Hyzaar 50-12.5 Tablet] 1 tab PO QAM 07/29/19 Lurasidone [Latuda] 80 mg PO W/SUPPER 07/29/19 Vortioxetine Hydrobromide [Trintellix] 20 mg PO QAM 07/29/19 traZODone HCL 150 mg PO HS 07/29/19 HYDROcodone/APAP 5-325MG [Young 5-325] 1 tab PO Q4HR PRN 3 Days #15 tab 03/26/24 Controlled Substance Measures - Controlled Substance Measures Is patient prescribed a controlled substance at discharge?: Yes When asked, does pt state using other controlled substances?: No If prescribed controlled substance>3 days was MAPS reviewed?: Prescribed <3 Days
== END ==
LOC: PNWHC3 08:06
PROVIDERS: ATTEND Specialist
DX: M47.816 Spondylosis without myelopathy or radiculopathy, lumbar region
CPT/HCPCS: 99211

== ENCOUNTER 2024-04-08 10:39 | Day surgery (SDC) | payer MEDICARE, OTHER ==
[2024-04-08] MEDS ORDERED: LACTATED RINGERS 1,000 ML IV SCH (10:55)
[2024-04-08 11:15] VITALS: TEMP 97.5
[2024-04-08 11:17] LABS: Glucose,Whole Blood 125 mg/dL (70-110)
[2024-04-08] MEDS ORDERED: IOPAMIDOL M300 15ML VIAL ONE (12:17)
[2024-04-08] MEDS ORDERED: methylPREDNISolone ACETATE 80 MG/ML 1 ML VIAL ONE (12:17)
[2024-04-08] MEDS ORDERED: ROPIVACAINE 5MG/ML 20ML VIAL ONE (12:17)
[2024-04-08 12:37] VITALS: RESP 16
--- NOTE | 2024-04-08 12:38 | P.PCN ---
Description of Procedure: PREOPERATIVE DIAGNOSIS: 1- Lumbar Degenerative Disc Diseases 2-Lumbar spondylosis with Facet arthropathy without myelopathy. 3-lumbar spinal stenosis POSTOPERATIVE DIAGNOSIS: 1-lumbar degenerative disc disease. 2-lumbar spondylosis with facet arthropathy without myelopathy. 3-lumbar spinal stenosis. PROCEDURE Injection of radio contrast material into L5-S1 interspace, interpretation of epidurogram, injection of steroid at L5-S1 epidural space under fluoroscopic guidance. ANESTHESIA: Lidocaine 1% subcutaneously. In OR continuous pulse ox, EKG, blood pressure and verbal communication was maintained with the patient. EBL: Minimal PROCEDURE INDICATION: Before the procedure were discussed with the patient detailed procedure, alternatives, complications including infection, bleeding, nerve damage, paralysis all of which could be permanent. Patient understands and all questions were answered. PROCEDURE DESCRIPTION : After getting consent, patient in OR in prone position. Back was prepped with chlorhexidine and draped in sterile fashion. After injecting 10 mL of 1% lidocaine subcutaneously, a 20-gauge Tuohy needle was introduced at L5-S1 interspace with loss of resistance technique using a syringe filled with air. Negative CSF, negative blood, negative paresthesia. Needle position was confirmed with AP and lateral view of the fluoroscope. After repeat negative aspiration 2 mL of Omnipaque 200 water soluble contrast was injected. Contrast was noted in the epidural space. No contrast was noted into intrathecal or intravascular space. After repeat negative aspiration 6 mL solution was injected intermittently which consists of 5 mL of preservative-free normal saline mixed with 1 mL of 80 mg Depo-Medrol. Needle was withdrawn intact. Skin was cleansed and Band-Aids was applied. DISPOSITION / PLANS: The patient tolerated the procedure well. No complication. The patient was placed in a supine position and transferred to the recovery area in a stable condition for observation. There was no evidence of lower extremity motor or sensory deficit after the procedure. Patient was discharged from the recovery room after meeting discharge criteria. Home discharge instructions were given to the patient by the staff. The patient was reexamined prior to discharge. The patient will schedule a follow up in the clinic in 2-4 weeks.
[2024-04-08 12:52] VITALS: BP 166/96; PULSE 103
--- NOTE | 2024-05-01 10:36 | FL ---
EXAMINATION TYPE: FL guided pain mgmt statistic DATE OF EXAM: 04/08/2024 12:37 PM COMPARISON: Pre Operative Images if available both CT/MRI or plain film CLINICAL INDICATION: Female, 58 years old with history of LESI; TECHNIQUE: FL guided pain mgmt statistic, multiple fluoroscopic images provided for procedure. Total fluoroscopy time: 4.8 seconds Total submitted images to PACS: 2 DAP: [id number] mGym2 Gycm2 uGym2 cGycm2 or equivalent. FINDINGS: Fluoroscopic images during injection for pain management demonstrate multilevel degeneration changes throughout the spine. No evidence for fracture. No acute process identified. IMPRESSION: 1. No evidence for intraoperative complication. 2. Please see the operative/procedural note for further details. [facility], , 05/01/2024 10:33 AM
== END 2024-04-08 13:11 | disposition home or self-care (01) ==
LOC: ORPAIN 10:39
PROVIDERS: ATTEND Pain Medicine Interventional Pain Medicine
DX: M47.816 Spondylosis without myelopathy or radiculopathy, lumbar region (principal); M48.061 Spinal stenosis, lumbar region without neurogenic claudication; M51.36 Other intervertebral disc degeneration, lumbar region; E11.9 Type 2 diabetes mellitus without complications; Z79.1 Long term (current) use of non-steroidal anti-inflammatories (NSAID); Z88.8 Allergy status to other drugs, medicaments and biological substances
CPT/HCPCS: 62323

== ENCOUNTER → 2024-04-14 | Outpatient (CLI) | payer MEDICARE, OTHER ==
[2024-04-14 13:41] VITALS: BP 156/85; PULSE 89; RESP 17
--- NOTE | 2024-04-14 15:13 | P.PAINPG ---
PQRS Measure Charge Sheet Comment: HISTORY OF PRESENT ILLNESS: A 58 yr old female presents today w severe and chronic LBP > 3 mo secondary to radiculopathy, spondylosis and facet arthropathy without myelopathy for evaluation s/p EMILY L5-S1 #1. Pt states she experienced 0% pain relief s/p procedure. Pt states pain level is provoked at 10 /10 in intensity, constant, localized in the lumbar spine, predominantly axial, sharp in character w occasional shooting pain towards the R foot. Pain is provoked by over activity. Pain is alleviated by PT x 6 wks which ended in mid Feb 2024, physician guided home stretches daily since Feb 2024, medications, manual massage, repositioning and rest . Interventional procedures include EMILY L5-S1 x1 (Mar 2024) Medications include Rhodhiss 5/325mg #920 (fr Puentes on 03/29/24), Neurontin 300mg #90, Naproxen REVIEW OF ORGAN SYSTEMS: CONSTITUTIONAL: No fevers or chills. No recent weight loss. NEUROLOGICAL: + numbness and tingling along the distal extremities. No seizure disorders or headaches. MUSCULOSKELETAL: + pain PSYCHIATRIC: Denies current depression or suicidal thoughts. Physical Examinations : Constitutional : Cooperative , not in acute distress . Neurologic : Cranial nerve II to XII intact. No focal neurological deficits. Psychiatric : alert & oriented x 3. Matching mood & appropriate affect. Judgment & insight intact. Musculoskeletal : Cervical Spine Motor strength in the deltoid and biceps: Normal right side. Normal Left side Motor strength biceps and the wrist extensors: Normal right side . Normal left side Motor strength in the triceps muscle: Normal right side. Normal left side Deep tendon reflexes: Normal at the biceps. Normal at Brachioradialis. Normal at triceps Vertebral body tenderness to deep palpation over Cervical facet loading test: positive bilaterally Spurling test: positive bilaterally Neck distraction test: positive bilaterally Yael sign: positive bilaterally Lumbar spine Motor strength lower extremities ,thigh and legs 5/5 Right side , 5/5 Left side Deep tendon reflexes : Normal Knee Jerk. Normal Ankle Jerk Vertebral body tenderness over L5 Schwartz Test positive R> L L5-S1 Lumbar facet Loading Test: positive Right / positive Left Range of motion of the lumbar spine Flexion 30 degrees, extension 10 degrees Straight Leg Raise test: Left/ Right positive at degrees Kalee test: positive right / positive left. Severe tenderness over the Sacroiliac joint on the Right / Left sides Gaenslen test: positive bilaterally Seated flexion test: positive bilaterally. Sacral spine : Severe tenderness over the Sacroiliac joint: right side / left side Range of motion: Flexion of the lumbar spine <60 degrees Range of motion: Extension of the lumbar spine <20 degrees Gaenslen's Test positive Kalee test: positive right side / left side Thigh Thrust Test Sacral Thrust Test Imaging: X ray lumbar spine from 03/19/24 reviewed Assessment/ Plan : Lumbar radiculopathy Recommendation of follow up w Dr Martínez to explore additional treatment options. All questions answered. I have spent greater than 30 minutes on patient care today. Dr Camara was available by phone for the evaluation of this patient. The time was used to review the medical records including relevant urine studies and Prescription history (MAPs), review of the available imaging, evaluation and examination of the patient, coordination of care with the medical staff and if applicable referring physicians, as well as creation of the medical record PQRS Narrative: Smoking Status Never smoker Hx Alcohol Use (MH) No Home Medications: Ambulatory Orders Atorvastatin [Lipitor] 40 mg PO HS 07/29/19 Losartan/Hydrochlorothiazide [Hyzaar 50-12.5 Tablet] 1 tab PO QAM 07/29/19 HYDROcodone/APAP 5-325MG [Rhodhiss 5-325] 1 tab PO Q4HR PRN 3 Days #15 tab 03/26/24 Cariprazine HCl [Vraylar] 3 mg PO DAILY 04/03/24 Eye Drop(Unk) 1 drop BOTH EYES DAILY 04/03/24 Rhea Root(Unk) 1 tab PO DAILY 04/03/24 Liopic Acid(Unk) 600 mg pe PO DAILY 04/03/24 Methofolate(Unk) 1,000 mcg PO DAILY 04/03/24 Nortriptyline [Pamelor] 50 mg PO DAILY 04/03/24 [place] 3(Unk) 1 tab PO QID 04/03/24 Ondansetron [Zofran] 16 mg PO DAILY PRN 04/03/24 Pantoprazole [Protonix] 40 mg PO DAILY 04/03/24 busPIRone HCl [Buspar] 10 mg PO BID 04/03/24 hydrOXYzine HCL [Atarax] 25 mg PO DAILY 04/03/24 metFORMIN HCL [Glucophage] 500 mg PO DAILY 04/03/24 Controlled Substance Measures - Controlled Substance Measures Is patient prescribed a controlled substance at discharge?: No
== END ==
LOC: PNWHC3 13:13
PROVIDERS: ATTEND Specialist
DX: M54.16 Radiculopathy, lumbar region
CPT/HCPCS: 99211

== ENCOUNTER 2024-04-26 08:58 | Emergency (ER) | payer MEDICARE, OTHER ==
[2024-04-26 09:04] VITALS: RESP 18
[2024-04-26] MEDS: HYDROcodone/APAP 5-325MG 1 EACH TAB PO STA (09:33)
[2024-04-26] MEDS: dexAMETHasone 4 MG TAB PO STA (09:33)
--- NOTE | 2024-04-26 09:44 | ED ---
Back Pain HPI - General Chief Complaint: Back Pain/Injury Stated Complaint: Back pain Time Seen by Provider: 04/26/24 09:40 Source: patient, RN notes reviewed Limitations: no limitations - History of Present Illness Initial Comments: 58-year-old female presented to the ER via EMS with a chief complaint of back pain. Patient states since December she has been experiencing back pain with radiation to her right leg. She is following up outpatient with Dr. Martínez. She has had MRIs and outpatient studies performed showing a pinched nerve in her back. Patient states she has been taking [id number] naproxen without relief. She has stopped taking naproxen for the past 48 hours as she was told to stop taking it as this can cause peptic ulcers. She reports she was seen at [facility] yesterday for similar complaint. Patient received Decadron and Toradol without pain relief. Patient states pain has persisted. She denies any new injuries or traumas. Denies any bowel or bladder incontinence, saddle paresthesias. She does report pain radiates to her anterior right thigh. Denies any weakness. No other complaints. - Related Data Home Medications Medication Instructions Recorded Confirmed Atorvastatin [Lipitor] 40 mg PO HS 07/29/19 04/08/24 Losartan/Hydrochlorothiazide 1 tab PO QAM 07/29/19 04/08/24 [Hyzaar 50-12.5 Tablet] Cariprazine HCl [Vraylar] 3 mg PO DAILY 04/03/24 04/08/24 Eye Drop(Unk) 1 drop BOTH EYES DAILY 04/03/24 04/08/24 Rhea Root(Unk) 1 tab PO DAILY 04/03/24 04/08/24 Liopic Acid(Unk) 600 mg pe PO DAILY 04/03/24 04/08/24 Methofolate(Unk) 1,000 mcg PO DAILY 04/03/24 04/08/24 Nortriptyline [Pamelor] 50 mg PO DAILY 04/03/24 04/08/24 [place] 3(Unk) 1 tab PO QID 04/03/24 04/08/24 Ondansetron [Zofran] 16 mg PO DAILY PRN 04/03/24 04/08/24 Pantoprazole [Protonix] 40 mg PO DAILY 04/03/24 04/08/24 busPIRone HCl [Buspar] 10 mg PO BID 04/03/24 04/08/24 hydrOXYzine HCL [Atarax] 25 mg PO DAILY 04/03/24 04/08/24 metFORMIN HCL [Glucophage] 500 mg PO DAILY 04/03/24 04/08/24 Previous Rx's Medication Instructions Recorded HYDROcodone/APAP 5-325MG [[place] 1 tab PO Q4HR PRN 3 Days #15 tab 03/26/24 5-325] Cyclobenzaprine [Flexeril] 10 mg PO TID #15 tab 04/26/24 HYDROcodone/APAP 7.5-325MG [[place] 1 tab PO Q6HR PRN 3 Days #12 tab 04/26/24 7.5-325] Allergies Allergy/AdvReac Type Severity Reaction Status Date / Time bupropion [From Wellbutrin] AdvReac Unknown Verified 04/08/24 11:05 nortriptyline AdvReac Dyspnea Verified 04/26/24 09:04 Review of Systems ROS Statement: Those systems with pertinent positive or pertinent negative responses have been documented in the HPI. ROS Other: All systems not noted in ROS Statement are negative. Past Medical History Past Medical History: Diabetes Mellitus, GERD/Reflux, Hyperlipidemia, Hypertension Additional Past Medical History / Comment(s): nose bleeds, depression, back pain, History of Any Multi-Drug Resistant Organisms: None Reported Past Surgical History: No Surgical Hx Reported Additional Past Surgical History / Comment(s): laproscopic surgery for fibroid tumor on ovary, Past Anesthesia/Blood Transfusion Reactions: Motion Sickness Past Psychological History: Anxiety, Depression Smoking Status: Never smoker Past Alcohol Use History: None Reported Past Drug Use History: None Reported - Past Family History Mother Family Medical History: No Reported History General Exam Limitations: no limitations General appearance: alert, in no apparent distress, other (Tearful on exam) Neck exam: Present: normal inspection. Absent: tenderness, meningismus, ly mphadenopathy Respiratory exam: Present: normal lung sounds bilaterally. Absent: respiratory distress, wheezes, rales, rhonchi, stridor Cardiovascular Exam: Present: regular rate, normal rhythm, normal heart sounds. Absent: systolic murmur, diastolic murmur, rubs, gallop, clicks Rectal exam: Present: normal rectal tone, other (skin tag present) Extremities exam: Present: normal inspection, full ROM, normal capillary refill, other (2+ bilateral dorsalis pedis and posterior tibialis pulses). Absent: tenderness, pedal edema, joint swelling, calf tenderness Back exam: Present: tenderness (L4-L5. No overlying skin changes.), other (Pain with internal and external rotation of right hip. Negative right straight leg raise. Positive left straight leg raise. Sensation intact) Neurological exam: Present: alert, oriented X3, CN II-XII intact Skin exam: Present: warm, dry, intact, normal color. Absent: rash Course Vital Signs 04/26/24 04/26/24 09:00 14:01 Temperature 98.1 F 97.9 F Pulse Rate 92 86 Respiratory 18 18 Rate Blood Pressure 133/76 136/80 O2 Sat by Pulse 99 99 Oximetry Medical Decision Making - Medical Decision Making Was pt. sent in by a medical professional or institution (, PA, PRACTICE ADVISOR, urgent care, hospital, or care home...) When possible be specific @ -No Did you speak to anyone other than the patient for history (EMS, parent, family, police, friend...)? What history was obtained from this source @ -No Did you review nursing and triage notes (agree or disagree)? Why? @ -I reviewed and agree with nursing and triage notes Were old charts reviewed (outside hosp., previous admission, EMS record, old EKG, old radiological studies, urgent care reports/EKG's, care home records)? Report findings @ -CT lumbar spine and medical records reviewed from [facility] date 04-25-2024. CT lumbar spine without contrast showing no acute fractures. There is mild spinal canal stenosis at L4-L5 and mild bilateral neuroforaminal narrowing secondary to disc bulge and facet arthropathy. Differential Diagnosis (chest pain, altered mental status, abdominal pain women, abdominal pain men, vaginal bleeding, weakness, fever, dyspnea, syncope, headache, dizziness, GI bleed, back pain, seizure, CVA, palpatations, mental health, musculoskeletal)? @ -Differential Back Pain:Strain, zoster, cauda equina syndrome, epidural abscess, vertebral osteomyelitis, discitis, fracture, subluxation, disc herniation, DJD, spinal stenosis, dissection, AAA, pancreatitis, peptic ulcer disease, pyelonephritis, kidney stone, this is not meant to be an all-inclusive list. EKG interpreted by me (3pts min.). @ -None done X-rays interpreted by me (1pt min.). @ -None done CT interpreted by me (1pt min.). @ -None done U/S interpreted by me (1pt. min.). @ -None done What testing was considered but not performed or refused? (CT, X-rays, U/S, labs)? Why? @ -As patient denies any new injuries or traumas and patient had CT scan completed yesterday at [facility], focus will be on pain management and patient is agreeable to forego imaging at this time. What meds were considered but not given or refused? Why? @ -None Did you discuss the management of the patient with other professionals (professionals i.e. , PA, PRACTICE ADVISOR, lab, RT, psych nurse, executive secretary social welfare, food service utility worker, teacher, security patrol officer, high risk case manager)? Give summary @ -No Was smoking cessation discussed for >3mins.? @ -No Was critical care preformed (if so, how long)? @ -No Were there social determinants of health that impacted care today? How? (Homelessness, low income, unemployed, alcoholism, drug addiction, transportation, low edu. Level, literacy, decrease access to med. care, [place] [facility], rehab)? @ -No Was there de-escalation of care discussed even if they declined (Discuss DNR or withdrawal of care, Hospice)? DNR status @ -No What co-morbidities impacted this encounter? (DM, HTN, Smoking, COPD, CAD, Cancer, CVA, ARF, Chemo, Hep., AIDS, mental health diagnosis, sleep apnea, morbid obesity)? @ -None Was patient admitted / discharged? Hospital course, mention meds given and route, prescriptions, significant lab abnormalities, going to OR and other pertinent info. @ -Discharge. 58-year-old female presented to the ER with a chief complaint of back pain. History and physical exam completed. Vitals within normal limits. Patient anxious on exam but no signs of acute distress. No red flag back pain symptoms indicative of cauda equina syndrome. No focal bony tenderness. No ov erlying skin changes to right anterior thigh. Pain with left straight leg raise. Pain with right internal (terminal rotation of hip. Bilateral lower extremities neurovascular intact. Rectal exam performed with normal rectal tone. Exam chaperoned by Nikko CASTRO. CT lumbar spine obtained from [facility] completed on 04-25-2024. CT findings showing no acute fractures. There is mild spinal canal stenosis at L4-L5 and mild bilateral neuroforaminal narrowing secondary to disc bulge and facet arthropathy. As patient denies any new injuries or traumas, patient is agreeable to focus pain management at this time and forego imaging. Patient refusing IV. Patient received p.o. 4 mg Decadron and 1 p.o. Tilton 5 for pain control in the ER. Upon reevaluation, patient reporting improvement of pain but states if she moves pain will increase. Patient is agreeable for IM Norflex at this time. Upon reevaluation after Norflex patient is reporting improvement of pain. Patient stable for discharge at this time. Advise close follow-up with PCP and Dr. Martínez. Flexeril and Tilton prescribed. Strict return parameters discussed. Patient discharged in stable condition. Patient verbally expressed understanding agree with care plan. Case discussed with ED attending Dr. Jerome. Undiagnosed new problem with uncertain prognosis? @ -No Drug Therapy requiring intensive monitoring for toxicity (Heparin, Nitro, Insulin, Cardizem)? @ -No Were any procedures done? @ -No Diagnosis/symptom? @ -Spinal canal stenosis Acute, or Chronic, or Acute on Chronic? @ -Acute Uncomplicated (without systemic symptoms) or Complicated (systemic symptoms)? @ -Uncomplicated Side effects of treatment? @ -No Exacerbation, Progression, or Severe Exacerbation? @ -No Poses a threat to life or bodily function? How? (Chest pain, [place], [place], pneumonia, PE, COPD, DKA, ARF, appy, cholecystitis, CVA, Diverticulitis, Homicidal, Suicidal, threat to staff... and all critical care pts) @ -No Disposition Clinical Impression: Central stenosis of spinal canal, Back pain Disposition: HOME SELF-CARE Condition: Stable Instructions (If sedation given, give patient instructions): Acute Low Back Pain (ED) Additional Instructions: Follow-up with Dr. Martínez. Follow-up with PCP in next 1-2 days. Do not take Tilton and Flexeril together as this may make you drowsy or sleepy. Return to the ER for any new or worsening concerns. Prescriptions: Cyclobenzaprine [Flexeril] 10 mg PO TID #15 tab HYDROcodone/APAP 7.5-325MG [[place]ilton 7.5-325] 1 tab PO Q6HR PRN 3 Days #12 tab PRN Reason: Pain Is patient prescribed a controlled substance at d/c from ED?: Yes When asked, does pt state using other controlled substances?: No If prescribed controlled substance>3 days was MAPS reviewed?: Prescribed <3 Days If opioid is for acute pain is fill amount 7 days or less?: Yes If Rx opioid, was Start Talking consent form obtained?: Yes Referrals: Silvio Garcia MD [Primary Care Provider] - 1-2 days Jaswinder Martínez DO [Doctor of Osteopathic Medicine] - 1-2 days Time of Disposition: 13:11
[2024-04-26] MEDS: ORPHENADRINE 30 MG/ML 2 ML VIAL IM STA (12:19)
[2024-04-26 14:02] VITALS: BP 136/80; PULSE 86; TEMP 97.9
== END 2024-04-26 14:01 | disposition home or self-care (01) ==
LOC: EC 08:58
CPT/HCPCS: 96372; 99283

== ENCOUNTER 2024-11-05 12:11 | Inpatient (IN) | payer MEDICARE, OTHER ==
[2024-11-05] MEDS: KETOROLAC 15 MG/ML 1 ML VIAL IVP STA (13:20)
[2024-11-05] MEDS: HYDROmorphone 0.5 MG/0.5 ML SYRINGE IVP STA (13:21)
[2024-11-05] MEDS: methylPREDNISolone SOD SUCCI 125 MG/2 ML VIAL IV STA (13:23)
--- NOTE | 2024-11-05 13:58 | ED ---
General Adult HPI - General Chief complaint: Back Pain/Injury Stated complaint: bilateral leg pain Time Seen by Provider: 11/05/24 13:00 Source: patient, RN notes reviewed, old records reviewed Mode of arrival: wheelchair Limitations: no limitations - History of Present Illness Initial comments: This is a 59-year-old female comes in complaining of back pain. Patient states she has had chronic back pain. Patient states she has had injections in her b ack before because of a nerve issue with Dr. Banegas. Patient states over the last 2 weeks however she has had back pain on both sides of her lower back and it radiates down both of her legs. Patient states the getting progressively worse to the point where any kind of movement causes excruciating pain. Patient denies any numbness and weakness in the perineal area patient denies any urine incontinence or retention. Patient has any bowel problems. - Related Data Home Medications Medication Instructions Recorded Confirmed Atorvastatin [Lipitor] 40 mg PO HS 07/29/19 04/08/24 Losartan/Hydrochlorothiazide 1 tab PO QAM 07/29/19 04/08/24 [Hyzaar 50-12.5 Tablet] Cariprazine HCl [Vraylar] 3 mg PO DAILY 04/03/24 04/08/24 Eye Drop(Unk) 1 drop BOTH EYES DAILY 04/03/24 04/08/24 Rhea Root(Unk) 1 tab PO DAILY 04/03/24 04/08/24 Liopic Acid(Unk) 600 mg pe PO DAILY 04/03/24 04/08/24 Methofolate(Unk) 1,000 mcg PO DAILY 04/03/24 04/08/24 Nortriptyline [Pamelor] 50 mg PO DAILY 04/03/24 04/08/24 Ragland 3(Unk) 1 tab PO QID 04/03/24 04/08/24 Ondansetron [Zofran] 16 mg PO DAILY PRN 04/03/24 04/08/24 Pantoprazole [Protonix] 40 mg PO DAILY 04/03/24 04/08/24 busPIRone HCl [Buspar] 10 mg PO BID 04/03/24 04/08/24 hydrOXYzine HCL [Atarax] 25 mg PO DAILY 04/03/24 04/08/24 metFORMIN HCL [Glucophage] 500 mg PO DAILY 04/03/24 04/08/24 Previous Rx's Medication Instructions Recorded HYDROcodone/APAP 5-325MG [Hudson 1 tab PO Q4HR PRN 3 Days #15 tab 03/26/24 5-325] Cyclobenzaprine [Flexeril] 10 mg PO TID #15 tab 04/26/24 HYDROcodone/APAP 7.5-325MG [Hudson 1 tab PO Q6HR PRN 3 Days #12 tab 04/26/24 7.5-325] Allergies Allergy/AdvReac Type Severity Reaction Status Date / Time bupropion [From Wellbutrin] AdvReac Unknown Verified 11/05/24 12:18 nortriptyline AdvReac Dyspnea Verified 11/05/24 12:18 Review of Systems ROS Statement: Those systems with pertinent positive or pertinent negative responses have been documented in the HPI. ROS Other: All systems not noted in ROS Statement are negative. Past Medical History Past Medical History: Diabetes Mellitus, GERD/Reflux, Hyperlipidemia, Hypertension Additional Past Medical History / Comment(s): nose bleeds, depression, back pain, History of Any Multi-Drug Resistant Organisms: None Reported Past Surgical History: No Surgical Hx Reported Additional Past Surgical History / Comment(s): laproscopic surgery for fibroid tumor on ovary, Past Anesthesia/Blood Transfusion Reactions: Motion Sickness Past Psychological History: Anxiety, Depression Smoking Status: Never smoker Past Alcohol Use History: None Reported Past Drug Use History: None Reported - Past Family History Mother Family Medical History: No Reported History General Exam - General Exam Comments Initial Comments: GENERAL: Patient is well-developed and well-nourished. Patient is nontoxic and well- hydrated and is in moderate distress. ENT: Neck is soft and supple. No significant lymphadenopathy is noted. Oropharynx is clear. Moist mucous membranes. Neck has full range of motion without eliciting any pain. EYES: The sclera were anicteric and conjunctiva were pink and moist. Extraocular movements were intact and pupils were equal round and reactive to light. Eyelids were unremarkable. PULMONARY: Unlabored respirations. Good breath sounds bilaterally. No audible rales rhonchi or wheezing was noted. CARDIOVASCULAR: There is a regular rate and rhythm without any murmurs gallops or rubs. ABDOMEN: Soft and nontender with normal bowel sounds. SKIN: Skin is clear with no lesions or rashes and otherwise unremarkable. NEUROLOGIC: Patient is alert and oriented x3. Cranial nerves II through XII are grossly intact. Patient is able to move the legs however it causes her excruciating pain in the back and down the posterior aspect of her legs. Normal speech, volume and content. Symmetrical smile. Patient straight leg test is positive at 15 degrees bilaterally. Perineum exam is normal sensation MUSCULOSKELETAL: Unable to assess leg range of motion fully because it causes her too much pain. LYMPHATICS: No significant lymphadenopathy is noted PSYCHIATRIC: Normal psychiatric evaluation. Limitations: no limitations Course Vital Signs 11/05/24 11/05/24 12:13 14:33 Temperature 97.8 F 98.7 F Pulse Rate 105 H 80 Respiratory 22 20 Rate Blood Pressure 191/117 219/95 O2 Sat by Pulse 98 95 Oximetry Medical Decision Making - Medical Decision Making EKG is interpreted by myself. EKG shows a sinus rhythm at 82 bpm SD interval is 124 QRS is 92 QT interval 384 QTc is 423. Patient's EKG shows no ST segment elevation or depression Was pt. sent in by a medical professional or institution ([facility], [facility], urgent care, hospital, or jail...) When possible be specific @ -No Did you speak to anyone other than the patient for history (EMS, parent, family, police, friend...)? What history was obtained from this source @ -No Did you review nursing and triage notes (agree or disagree)? Why? @ -I reviewed and agree with nursing and triage notes Were old charts reviewed (outside hosp., previous admission, EMS record, old EKG, old radiological studies, urgent care reports/EKG's, jail records)? Report findings @ -No old charts were reviewed Differential Diagnosis? @ -Differential Back Pain: Strain, zoster, cauda equina syndrome, epidural abscess, vertebral osteomyelitis, discitis, fracture, subluxation, disc herniation, DJD, spinal stenosis, dissection, AAA, pancreatitis, peptic ulcer disease, pyelonephritis, kidney stone, this is not meant to be an all-inclusive list. EKG interpreted by me (3pts min.). @ -As above X-rays interpreted by me (1pt min.). @ -None done CT interpreted by me (1pt min.). @ -CT of the lumbar sacral spine shows a discitis between L4 and L5 with osteomyelitis U/S interpreted by me (1pt. min.). @ -None done What testing was considered but not performed or refused? (CT, X-rays, U/S, labs)? Why? @ -None What meds were considered but not given or refused? Why? @ -None Did you discuss the management of the patient with other professionals (professionals i.e. , PA, PLATE GAUGER, lab, RT, psych nurse, social human services assistants, oracle reports developer, teacher, credit officer, dependency case manager)? Give summary @ -I spoke with Dr. Link he agreed to admit the patient. Was smoking cessation discussed for >3mins.? @ -No Was critical care preformed (if so, how long)? @ -35 minutes Were there social determinants of health that impacted care today? How? (Homelessness, low income, unemployed, alcoholism, drug addiction, transportation, low edu. Level, literacy, decrease access to med. care, fdc, rehab)? @ -No Was there de-escalation of care discussed even if they declined (Discuss DNR or withdrawal of care, Hospice)? DNR status @ -No What co-morbidities impacted this encounter? (DM, HTN, Smoking, COPD, CAD, Cancer, CVA, ARF, Chemo, Hep., AIDS, mental health diagnosis, sleep apnea, morbid obesity)? @ -None Was patient admitted / discharged? Hospital course, mention meds given and route, prescriptions, significant lab abnormalities, going to OR and other pertinent info. @ -Patient was having severe pain in the emergency department gave the patient some steroids Toradol and Dilaudid in the emergency department and help with her pain. Patient will be admitted to Dr. Link with a consult with Dr. Hudson. Patient is on vancomycin and Zosyn Undiagnosed new problem with uncertain prognosis? @ -No Drug Therapy requiring intensive monitoring for toxicity (Heparin, Nitro, Insulin, Cardizem)? @ -No Were any procedures done? @ -No Diagnosis/symptom? @ -Discitis Acute, or Chronic, or Acute on Chronic? @ -Acute Uncomplicated (without systemic symptoms) or Complicated (systemic symptoms)? @ -Complicated Side effects of treatment? @ -No Exacerbation, Progression, or Severe Exacerbation? @ -No Poses a threat to life or bodily function? How? (Chest pain, [place], [place], pneumonia, PE, COPD, DKA, ARF, appy, cholecystitis, CVA, Diverticulitis, Homicidal, Suicidal, threat to staff... and all critical care pts) @ -Yes this could lead to severe morbidity and or sepsis Diagnosis/symptom? @ -Osteomyelitis Acute, or Chronic, or Acute on Chronic? @ -Acute Uncomplicated (without systemic symptoms) or Complicated (systemic symptoms)? @ -Comp Side effects of treatment? @ -None Exacerbation, Progression, or Severe Exacerbation] @ -No Poses a threat to life or bodily function? @ -Yes this can lead to sepsis and endorgan dysfunction - Lab Data Result diagrams: 11/05/24 15:08 11/05/24 15:08 Lab Results 11/05/24 11/05/24 11/05/24 Range/Units 15:08 15:08 15:08 WBC 10.61 H (4.50-10.00) 10*3/uL RBC 3.88 L (4.10-5.20) 10*6/uL Hgb 11.7 L (12.0-15.0) g/dL Hct 33.5 L (37.2-46.3) % MCV 86.3 (80.0-97.0) fL MCH 30.2 (27.0-32.0) pg MCHC 34.9 (32.0-37.0) g/dL Plt Count 476 H (140-440) 10*3/uL MPV 10.0 (9.5-12.2) fL Immature Gran % (Auto) 0.5 % Neutrophils % 86.5 % Lymphocytes % 9.7 % Monocytes % 1.7 % Eosinophils % 0.8 % Basophils % 0.8 % Immature Gran # 0.05 H (0.00-0.04) 10*3/uL Neutrophils # 9.18 H (1.80-7.70) 10*3/uL Lymphocytes # 1.03 (0.90-5.00) 10*3/uL Monocytes # 0.18 L (0.20-1.00) 10*3/uL Eosinophils # 0.09 (0.04-0.35) 10*3/uL Basophils # 0.08 (0.00-0.10) 10*3/uL PT 10.7 (10.0-12.5) sec INR 1.0 (<1.2) APTT 24.2 (22.0-30.0) sec Sodium 129 L (137-145) mmol/L Potassium 4.4 (3.5-5.1) mmol/L Chloride 95 L (98-107) mmol/L Carbon Dioxide 24 (22-30) mmol/L Anion Gap 10 mmol/L BUN 20 H (7-17) mg/dL Creatinine 0.84 (0.52-1.04) mg/dL Est GFR (CKD-EPI)AfAm 88 (>60 ml/min/1.73 sqM) Est GFR (CKD-EPI)NonAf 76 (>60 ml/min/1.73 sqM) Glucose 97 (74-99) mg/dL Plasma Lactic Acid Mehran (0.7-2.0) mmol/L Calcium 10.4 H (8.4-10.2) mg/dL Total Bilirubin 0.5 (0.2-1.3) mg/dL AST 23 (14-36) U/L ALT 17 (4-34) U/L Alkaline Phosphatase 98 (38-126) U/L Total Protein 6.6 (6.3-8.2) g/dL Albumin 4.1 (3.5-5.0) g/dL 11/05/24 Range/Units 15:08 WBC (4.50-10.00) 10*3/uL RBC (4.10-5.20) 10*6/uL Hgb (12.0-15.0) g/dL Hct (37.2-46.3) % MCV (80.0-97.0) fL MCH (27.0-32.0) pg MCHC (32.0-37.0) g/dL Plt Count (140-440) 10*3/uL MPV (9.5-12.2) fL Immature Gran % (Auto) % Neutrophils % % Lymphocytes % % Monocytes % % Eosinophils % % Basophils % % Immature Gran # (0.00-0.04) 10*3/uL Neutrophils # (1.80-7.70) 10*3/uL Lymphocytes # (0.90-5.00) 10*3/uL Monocytes # (0.20-1.00) 10*3/uL Eosinophils # (0.04-0.35) 10*3/uL Basophils # (0.00-0.10) 10*3/uL PT (10.0-12.5) sec INR (<1.2) APTT (22.0-30.0) sec Sodium (137-145) mmol/L Potassium (3.5-5.1) mmol/L Chloride (98-107) mmol/L Carbon Dioxide (22-30) mmol/L Anion Gap mmol/L BUN (7-17) mg/dL Creatinine (0.52-1.04) mg/dL Est GFR (CKD-EPI)AfAm (>60 ml/min/1.73 sqM) Est GFR (CKD-EPI)NonAf (>60 ml/min/1.73 sqM) Glucose (74-99) mg/dL Plasma Lactic Acid Mehran 0.7 (0.7-2.0) mmol/L Calcium (8.4-10.2) mg/dL Total Bilirubin (0.2-1.3) mg/dL AST (14-36) U/L ALT (4-34) U/L Alkaline Phosphatase (38-126) U/L Total Protein (6.3-8.2) g/dL Albumin (3.5-5.0) g/dL Disposition Clinical Impression: Discitis, Osteomyelitis Disposition: ADMITTED IP TO THIS [facility] Time of Disposition: 16:09
--- NOTE | 2024-11-05 14:26 | CT ---
EXAMINATION TYPE: CT lumbar spine wo con DATE OF EXAM: 11/05/2024 2:11 PM COMPARISON: None CLINICAL INDICATION: Female, 59 years old with history of Severe back pain with radiculopathy bilater al legs; PHH, Severe back pain with radiculopathy bilateral legs TECHNIQUE: Unenhanced CT of the lumbar spine was performed. Bone and soft tissue window settings are submitted as well as coronal and sagittal reconstructions. CT DLP: 1278.[address] CTDI: mGy Automated exposure control for dose reduction was used. FINDINGS: There is marked disc space narrowing with destruction of the endplates at the L4-5 level in addition there is sclerosis of the mid portions of the L4 and L5 segments. The findings suggest acute L4-5 dis citis with osteomyelitis. The L1, L2 and L3 vertebral segments are normal in height and alignment. The L1-2, L2-3 and L3-4 disk s are normal. There is marked disc space narrowing and spondylosis at the L5-S1 level indicating moderate to severe degenerative disc disease at the L5-S1 level. There is moderate facet arthropathy at the L2-3 and L3-4 levels. The paraspinal soft tissues are unremarkable. There are no focal disc protrusions or herniations . Secondary to marked circumferential disc bulge, facet hypertrophy and thickening of ligamentum flavum, there is severe spinal stenosis at the L4-5 le princess IMPRESSION: 1. Findings strongly suggestive of discitis and osteomyelitis at the L4-5 level 2. Severe spinal stenosis at the L4-5 level. 3. Moderate to severe degenerative disease at the L5-S1 level. [facility], , 11/05/2024 2:23 PM
--- NOTE | 2024-11-05 14:29 | CT ---
EXAMINATION TYPE: CT sacrum wo con DATE OF EXAM: 11/05/2024 COMPARISON: None CLINICAL INDICATION: Female, 59 years old with history of Severe back pain with radiculopathy bilater al legs; PHH, Severe back pain with radiculopathy bilateral legs CT DLP: 1278.2 mGycm Automated exposure control for dose reduction was used. FINDINGS: The sacrum and SI joints are normal. There is no sacral fracture or focal intraosseous abnormality. T here is no diastasis or sclerosis of SI joints. There is marked disc space narrowing, destructive endplate changes and sclerosis at the L4-5 level us ing the question of acute L4-5 discitis and osteomyelitis. There is moderate to severe degenerative disease at the L5-S1 level where there is moderate to severe disc space narrowing and spondylosis IMPRESSION: 1. FINDINGS SUSPICIOUS FOR ACUTE DISCITIS AND OSTEOMYELITIS AT THE L4-5 LEVEL. 2. SEVERE SPINAL STENOSIS AT THE L4-5 LEVEL. 3. MODERATE TO SEVERE DEGENERATIVE DISEASE THE L5-S1 LEVEL. 4. NORMAL SACRUM AND SI JOINTS. [facility], Workstation: [email or web address] 11/05/2024 2:27 PM
[2024-11-05] MEDS: HYDROmorphone 1 MG/ML 1 ML SYRINGE IVP STA ×2 (14:44→18:02)
[2024-11-05] MEDS ORDERED: VANCOMYCIN IV PER PHARMACY 1 EACH MISC MISCELLANE PRN (14:52)
[2024-11-05] MEDS: PIPERACILLIN-TAZOBACTAM 3.375 GM in SODIUM CHLORIDE 0.9% 100 ML IVPB STA (15:09)
[2024-11-05] MEDS: LACTATED RINGERS 1,000 ML IV SCH (15:30)
[2024-11-05 15:31] LABS: Basophils # (A) 0.08 10*3/uL (0.00-0.10); Basophils % (A) 0.8 %; Eosinophils # (A) 0.09 10*3/uL (0.04-0.35); Eosinophils % (A) 0.8 %; HCT 33.5 % (37.2-46.3); HGB 11.7 g/dL (12.0-15.0); Lymphocytes # (A) 1.03 10*3/uL (0.90-5.00); Lymphocytes % (A) 9.7 %; MCH 30.2 pg (27.0-32.0); MCHC 34.9 g/dL (32.0-37.0); MCV 86.3 fL (80.0-97.0); Monocytes # (A) 0.18 10*3/uL (0.20-1.00); Monocytes % (A) 1.7 %; Neutrophils # (A) 9.18 10*3/uL (1.80-7.70); Neutrophils % (A) 86.5 %; Platelet Count 476 10*3/uL (140-440); RBC 3.88 10*6/uL (4.10-5.20); RDW 13.5 % (11.5-14.5); WBC 10.61 10*3/uL (4.50-10.00)
[2024-11-05 15:42] LABS: ALT 17 U/L (4-34); AST 23 U/L (14-36); African American GFR (CKD) 88 (>60 ml/min/1.73 sqM); Albumin 4.1 g/dL (3.5-5.0); Alkaline Phosphatase 98 U/L (38-126); Anion Gap 10 mmol/L; Blood Urea Nitrogen 20 mg/dL (7-17); Calcium 10.4 mg/dL (8.4-10.2); Carbon Dioxide 24 mmol/L (22-30); Chloride 95 mmol/L (98-107); Glucose 97 mg/dL (74-99); Non-African American GFR(CKD) 76 (>60 ml/min/1.73 sqM); Potassium 4.4 mmol/L (3.5-5.1); Sodium 129 mmol/L (137-145); Total Bilirubin 0.5 mg/dL (0.2-1.3); Total Protein 6.6 g/dL (6.3-8.2)
[2024-11-05 15:44] LABS: Partial Thromboplastin Time 24.2 sec (22.0-30.0); Prothrombin Time 10.7 sec (10.0-12.5)
[2024-11-05] MEDS: VANCOMYCIN 1,250 MG in SODIUM CHLORIDE 0.9% 250 ML IVPB ONE (16:03)
[2024-11-05] MEDS ORDERED: HYDROmorphone 0.5 MG/0.5 ML SYRINGE IVP PRN (16:12)
[2024-11-05] MEDS: SODIUM CHLORIDE 0.9% 1,000 ML IV ONE (17:18)
[2024-11-05] MEDS: KETOROLAC 15 MG/ML 1 ML VIAL IVP SCH (18:01)
--- NOTE | 2024-11-05 19:12 | P.CNOR ---
History of Present Illness - HPI Consult date: 11/05/24 Consult reason: low back pain History of present illness: Is seen and examined in the emergency room. She is a 59-year-old female who has had back pain for several years. Over the past year she has been treating conservatively with Dr. Steele office. She has had imaging with his office and has undergone interventional pain management. She thinks that she has undergone 4 different epidural steroid injections the first 1 about a year ago and the most recent one about a month ago. She says she has been having back pain over the past year and has been having leg pain over the past 6 months or so. She denies any specific injury or trauma. She says that her leg pain has been significantly worse over the past month and then became unbearable for the past 2 weeks to the point where she had to present to the emergency room today. She denies any fevers or chills. She denies any new injury. She denies any new weakness in her lower extremities. She admits to severe pain when she tries to move her back. She has great deal of difficulty moving her back. She says that she is able to move her legs and her ankle feet and toes. She denies any loss of control or retention of bowel bladder function. She has been somewhat constipated over the past couple of days. She denies any headaches or shortness of breath. She denies any chest pain. She denies any neck pain or stiffness at her neck. She denies any upper extremity symptoms. Her primary issue is that at her low back and towards her tailbone. She is have been having great deal of difficulty with any sort of mobilization and is very difficult for her to change positions due to her back pain she feels incapacitated due to the pain. Review of Systems Stated per HPI. Denies fevers or chills. Denies chest pain or shortness of breath. Pain is primarily at her lower back. She has some pain in her lower extremities particularly to the left side. It goes down the back of her thighs. Prior to this month she was having symptoms in her right lower extremity. She has been having back pain for the past year and had epidural injections about a month ago w with Dr. Buitrago Past Medical History Past Medical History: Diabetes Mellitus, GERD/Reflux, Hyperlipidemia, Hypertension Additional Past Medical History / Comment(s): nose bleeds, depression, back pain,. Chronic low back pain. History of right lower extremity colopathy and new left lower EXTR radiculopathy. History of epidural steroid injections with Dr. Banegas office History of Any Multi-Drug Resistant Organisms: None Reported Past Surgical History: No Surgical Hx Reported Additional Past Surgical History / Comment(s): laproscopic surgery for fibroid tumor on ovary, Past Anesthesia/Blood Transfusion Reactions: Motion Sickness Past Psychological History: Anxiety, Depression Smoking Status: Never smoker Past Alcohol Use History: None Reported Past Drug Use History: None Reported - Past Family History Mother Family Medical History: No Reported History Medications and Allergies Home Medications Medication Instructions Recorded Confirmed Type Pantoprazole [Protonix] 40 mg PO DAILY 04/03/24 11/05/24 History busPIRone HCl [Buspar] 10 mg PO BID 04/03/24 11/05/24 History hydrOXYzine HCL [Atarax] 50 mg PO DAILY 04/03/24 11/05/24 History metFORMIN HCL [Glucophage] 500 mg PO DAILY 04/03/24 11/05/24 History 5-Alptgp-Dleehg 1000mcg 1 cap PO DAILY 11/05/24 11/05/24 History Alpha Lipoic Acid 600 mg PO DAILY 11/05/24 11/05/24 History Atorvastatin [Lipitor] 40 mg PO DAILY 11/05/24 11/05/24 History Cariprazine HCl [Vraylar] 4.5 mg PO DAILY 11/05/24 11/05/24 History Gabapentin 900 mg PO HS 11/05/24 11/05/24 History Gabapentin [Neurontin] 600 mg PO BID-W/MEALS 11/05/24 11/05/24 History Rhea Root 550mg 550 mg PO DAILY 11/05/24 11/05/24 History Latanoprost [Latanoprost 0.005%] 1 drop BOTH EYES DAILY 11/05/24 11/05/24 History Losartan/Hydrochlorothiazide 1 tab PO DAILY 11/05/24 11/05/24 History [Hyzaar 100-25 Tablet] Vortioxetine Hydrobromide 20 mg PO DAILY 11/05/24 11/05/24 History [Trintellix] icosapent ethyL [Icosapent Ethyl] 1 gm PO QID 11/05/24 11/05/24 History ondansetron HCL [Zofran] 8 mg PO BID 11/05/24 11/05/24 History traMADol HCL 100 mg PO TID PRN 11/05/24 11/05/24 History Allergies Allergy/AdvReac Type Severity Reaction Status Date / Time bupropion [From Wellbutrin] AdvReac Unknown Verified 11/05/24 17:33 nortriptyline AdvReac Dyspnea Verified 11/05/24 17:33 Physical Examination Osteopathic Statement: *. No significant issues noted on an osteopathic structural exam other than those noted in the History and Physical/Consult. - L Spine: dermatomal strength & reflexes bilateral Strength: hip flexion: 5/5 (She has a great deal of pain with motion in her back . She is okay when she lays still but when she tries to sit up or roll over her pain is severe at her back.) Strength: hip extension: 5/5 (Her hips have 5 out of 5 strength with hip flexion knee extension dorsiflexion plantarflexion EHL. Calves thighs soft nontender. Her back has spasm bilaterally. There is no open wounds lacerations or abrasions.) Results - Labs Labs: Abnormal Lab Results - Last 24 Hours (Table) 11/05/24 11/05/24 Range/Units 15:08 15:08 WBC 10.61 H (4.50-10.00) 10*3/uL RBC 3.88 L (4.10-5.20) 10*6/uL Hgb 11.7 L (12.0-15.0) g/dL Hct 33.5 L (37.2-46.3) % Plt Count 476 H (140-440) 10*3/uL Immature Gran # 0.05 H (0.00-0.04) 10*3/uL Neutrophils # 9.18 H (1.80-7.70) 10*3/uL Monocytes # 0.18 L (0.20-1.00) 10*3/uL Sodium 129 L (137-145) mmol/L Chloride 95 L (98-107) mmol/L BUN 20 H (7-17) mg/dL Calcium 10.4 H (8.4-10.2) mg/dL H & H 11/05/24 Range/Units 15:08 Hgb 11.7 L (12.0-15.0) g/dL Hct 33.5 L (37.2-46.3) % Coagulation 11/05/24 Range/Units 15:08 INR 1.0 (<1.2) Result Diagrams: 11/05/24 15:08 11/05/24 15:08 - Diagnostic results CT Scan - lumbar: report reviewed, image reviewed (CT scan of lumbar spine shows significant degenerative spondylosis L4-5 and L5-S1. There is severe disc degeneration and some sclerotic margins and bony erosion around L4-5 disc space, report is presumptive for discitis) Assessment and Plan Assessment: Acute on chronic low back pain Possible discitis L4-5 Lower EXTR radiculopathy bilaterally worse on the left than right without neurologic loss No evidence of saddle paresthesias or bowel or bladder changes Degenerative spondylosis L4-5 L5-S1 Recent history of epidural steroid injections about [address] Buitrago office Plan: Acute on chronic low back pain Possible discitis L4-5 Lower EXTR radiculopathy bilaterally worse on the left than right without neurologic loss No evidence of saddle paresthesias or bowel or bladder changes Degenerative spondylosis L4-5 L5-S1 Recent history of epidural steroid injections about [address] Buitrago office The patient is having severe pain particularly at her back. She had recent injections about 1 month ago at her lumbar spine and her timeline fits for the possibility of discitis at those L4-5 level. She is not having new neurologic change or deficit. She has lower extremity radiculopathy and significant pain when she moves her back but is not having acute neurologic loss. She has been having worsening pain over the past 2 weeks and has history of chronic low back pain. I think that she requires urgent new MRI imaging to evaluate the possibility of discitis at L4-5 and to see if there is any phlegmon or development of abscess. She does have evidence of significant stenosis at L4-5 and degeneration at L5-S1 as well. This correlates with her low back pain issues chronically. Her new issues do not have any evidence of trauma or instability. She has started IV antibiotics and infectious diseases on board. Her white count is not overly impressive but should be followed regularly. She needs to be treated for her pain control. If she is able to mobilize it is okay for her to sit up and try to have bathroom privileges if she is able. We will continue to follow closely. We have ordered a new MRI of her lumbar spine. Time with Patient: Greater than 30
[2024-11-05] MEDS: LORazepam 2 MG/ML INJ IV PRN (21:36)
[2024-11-05] MEDS: PIPERACILLIN-TAZOBACTAM 3.375 GM in SODIUM CHLORIDE 0.9% 100 ML IVPB SCH (21:36)
[2024-11-05] MEDS: HYDROmorphone 0.5 MG/0.5 ML SYRINGE IVP PRN (21:36)
[2024-11-05] MEDS: HEPARIN SODIUM,PORCINE 5,000 UNIT/ML 1 ML VIAL SQ SCH (21:36)
[2024-11-05] MEDS: GABAPENTIN 300 MG CAP PO SCH (23:11)
[2024-11-05] MEDS: LOSARTAN-HCTZ 50-12.5 MG 1 EACH TAB PO SCH (23:12)
--- NOTE | 2024-11-05 23:23 | P.CONS ---
History of Present Illness - Reason for Consult Consult date: 11/05/24 Discitis Requesting physician: Munir Link - Chief Complaint Back pain x 2 weeks - History of Present Illness Patient is a 59-year-old female with a past medical history significant for diabetes mellitus reflux hypertension hyperlipidemia presenting to the hospital for evaluation of worsening back pain patient did have a history of chronic back pain for which she did follow-up with and patient has multiple injection to the spine last one has been about a month ago for the last 2 weeks the patient has been complaining of increasing pain which is shooting down to both legs patient has been describing the pain to be sharp almost 10 out of 10 in severity with radiation to bilateral lower extremity without any bowel or bladder problem patient denies high-grade fever or any chills no chest pain shortness of breath or cough no vomiting no abdominal pain or diarrhea on presentation to the hospital the patient was afebrile no fever have been called subsequently patient did have a white count of 10.61 creatinine 0.84 and liver enzymes are normal patient did have CT of the lumbar spine findings suggestive of discitis osteomyelitis of the L4-5 level severe spinal stenosis patient was started on vancomycin and Zosyn infectious he was consulted for further management of antibiotic therapy Review of Systems Positive point and negatives has been mentioned in the HPI, complete review of systems was performed and all other systems are negative Past Medical History Past Medical History: Diabetes Mellitus, GERD/Reflux, Hyperlipidemia, Hypertension Additional Past Medical History / Comment(s): nose bleeds, depression, back pain, History of Any Multi-Drug Resistant Organisms: None Reported Past Surgical History: No Surgical Hx Reported Additional Past Surgical History / Comment(s): laproscopic surgery for fibroid tumor on ovary, Past Anesthesia/Blood Transfusion Reactions: Motion Sickness Past Psychological History: Anxiety, Depression Smoking Status: Never smoker Past Alcohol Use History: None Reported Past Drug Use History: None Reported - Past Family History Mother Family Medical History: No Reported History Medications and Allergies Home Medications Medication Instructions Recorded Confirmed Type Pantoprazole [Protonix] 40 mg PO DAILY 04/03/24 11/05/24 History busPIRone HCl [Buspar] 10 mg PO BID 04/03/24 11/05/24 History hydrOXYzine HCL [Atarax] 50 mg PO DAILY 04/03/24 11/05/24 History metFORMIN HCL [Glucophage] 500 mg PO DAILY 04/03/24 11/05/24 History 5-Eclmna-Hvxgcg 1000mcg 1 cap PO DAILY 11/05/24 11/05/24 History Alpha Lipoic Acid 600 mg PO DAILY 11/05/24 11/05/24 History Atorvastatin [Lipitor] 40 mg PO DAILY 11/05/24 11/05/24 History Cariprazine HCl [Vraylar] 4.5 mg PO DAILY 11/05/24 11/05/24 History Gabapentin 900 mg PO HS 11/05/24 11/05/24 History Gabapentin [Neurontin] 600 mg PO BID-W/MEALS 11/05/24 11/05/24 History Rhea Root 550mg 550 mg PO DAILY 11/05/24 11/05/24 History Latanoprost [Latanoprost 0.005%] 1 drop BOTH EYES DAILY 11/05/24 11/05/24 History Losartan/Hydrochlorothiazide 1 tab PO DAILY 11/05/24 11/05/24 History [Hyzaar 100-25 Tablet] Vortioxetine Hydrobromide 20 mg PO DAILY 11/05/24 11/05/24 History [Trintellix] icosapent ethyL [Icosapent Ethyl] 1 gm PO QID 11/05/24 11/05/24 History ondansetron HCL [Zofran] 8 mg PO BID 11/05/24 11/05/24 History traMADol HCL 100 mg PO TID PRN 11/05/24 11/05/24 History Allergies Allergy/AdvReac Type Severity Reaction Status Date / Time bupropion [From Wellbutrin] AdvReac Unknown Verified 11/05/24 17:33 nortriptyline AdvReac Dyspnea Verified 11/05/24 17:33 Physical Exam Vitals: Vital Signs Temp Pulse Resp BP Pulse Ox 11/05/24 14:33 98.7 F 80 20 219/95 95 11/05/24 12:13 97.8 F 105 H 22 191/117 98 Intake and Output 11/05/24 11/05/24 11/05/24 06:59 14:59 22:59 Other: Weight 68.039 kg GENERAL DESCRIPTION: Middle-age female lying in bed, no distress. No tachypnea or accessory muscle of respiration use. HEENT: Shows Pallor , no scleral icterus. Oral mucous membrane is dry. NECK: Trachea central, no thyromegaly. LUNGS: Unlabored breathing. Clear to auscultation anteriorly. No wheeze or crackle. HEART: S1, S2, regular rate and rhythm. No loud murmur ABDOMEN: Soft, no tenderness , guarding or rigidity, no organomegaly EXTREMITIES: No edema of feet. SKIN: No rash, no masses palpable. NEUROLOGICAL: The patient is awake, alert, oriented x3, mood and affect normal. Results CBC & Chem 7: 11/05/24 15:08 11/05/24 15:08 Labs: Abnormal Lab Results - Last 24 Hours (Table) 11/05/24 11/05/24 Range/Units 15:08 15:08 WBC 10.61 H (4.50-10.00) 10*3/uL RBC 3.88 L (4.10-5.20) 10*6/uL Hgb 11.7 L (12.0-15.0) g/dL Hct 33.5 L (37.2-46.3) % Plt Count 476 H (140-440) 10*3/uL Immature Gran # 0.05 H (0.00-0.04) 10*3/uL Neutrophils # 9.18 H (1.80-7.70) 10*3/uL Monocytes # 0.18 L (0.20-1.00) 10*3/uL Sodium 129 L (137-145) mmol/L Chloride 95 L (98-107) mmol/L BUN 20 H (7-17) mg/dL Calcium 10.4 H (8.4-10.2) mg/dL Assessment and Plan (1) Discitis Current Visit: Yes Status: Acute Code(s): M46.40 - DISCITIS, UNSPECIFIED, SITE UNSPECIFIED SNOMED Code(s): 5442102 (2) Osteomyelitis Current Visit: Yes Status: Acute Code(s): M86.9 - OSTEOMYELITIS, UNSPECIFIED SNOMED Code(s): 45225528 Plan: 1patient presented to hospital with excruciating pain to the lower back rating down to the leg and this patient did have a history of chronic back pain and has received multiple injection to the spine last 1 about a month ago now with a bnormal CT suspicious for discitis/osteomyelitis patient however not running any fever did have a normal white count and does not look toxic 2-we will recommend Ortho or IR aspiration of that area for microbiological diagnosis and to increase the yield of those culture and patient does not look toxic we will discontinue her antibiotic therapy at this point 3-patient benefit from an MRI and await orthopedic evaluation Multiple question concern answered We will follow on clinical condition and cultures to further adjust medication if needed Thank you for this consultation we will follow the patient along with you Dictation was produced using [email or web address] dictation software. please excuse any grammatical, word or spelling errors. Time with Patient: Greater than 30
[2024-11-05] MEDS ORDERED: DEXTROSE 50% SYRINGE 50 ML IVP PRN ×2 (23:26)
--- NOTE | 2024-11-06 02:48 | HP ---
HISTORY AND PHYSICAL CHIEF COMPLAINTS: Back pain and radiculopathy. HISTORY OF PRESENT ILLNESS: This is a 59-year-old woman with a past medical history of multiple medical problems including DJD, being followed by Dr. Hernández in the outpatient, had a back injection about a month ago according to her. The patient started to have back pain with radiculopathy, difficulty in walking, and other symptoms for the last 2 weeks. Because of increasing difficulty, this patient came to [facility] and is being admitted for further evaluation and treatment. A CT of the sacrum and lumbar spine was done which showed multiple abnormalities including acute diskitis and osteomyelitis of the L4-5 level and severe spinal stenosis also. Zjupxvmx-ef-sjourt DJD was also noted. Otherwise, there is no history of any fever, rigors, or chills at this time. PAST MEDICAL HISTORY: Reviewed and includes DJD, diabetes mellitus type 2. Rest of the history and rest of the chart are also reviewed. HOME MEDICATIONS: Reviewed and include, not confirmed yet, Glucophage, dose and rest of the medications reviewed. ALLERGIES: Wellbutrin. FAMILY HISTORY: No history of heart disease or strokes in the family. SOCIAL HISTORY: No history of smoking. REVIEW OF SYSTEMS: Fourteen-point review of systems negative except as mentioned earlier. PHYSICAL EXAMINATION: VITAL SIGNS: Pulse 80, blood pressure is 219/94, respirations 20. HEENT: Conjunctivae normal. NECK: No JVD. RESPIRATIONS: Breath sounds diminished at the bases. Few scattered rhonchi. ABDOMEN: Soft. LEGS: SLR is positive on both sides. BACK: Some local tenderness in the back also present. SKIN: No obvious infection noted in the skin. NERVOUS SYSTEM: No focal deficits. JOINTS: No active deforming arthropathy. LABORATORY DATA: Awaited. ASSESSMENT: 1. Severe back pain and radiculopathy, possibly acute diskitis and osteomyelitis of the L4-5 level. 2. Severe back pain with failure of outpatient treatment and gait dysfunction. 3. Severe spinal stenosis. 4. Kjcwzmlz-un-dljdgu degenerative joint disease of the L5-S1 level. 5. Diabetes mellitus type 2. 6. Gastroesophageal reflux disease. 7. Hyperlipidemia. 8. Hypertension. RECOMMENDATION AND DISCUSSION: This is a 59-year-old woman who presented with multiple complex medical issues. We will monitor the patient closely. Continue the current management. Broad-spectrum IV antibiotics initiated. I would recommend infectious disease evaluation as well as orthopedic evaluation also for the back pain. Management also will be done. Prognosis guarded because of multiple complex medical conditions. Further recommendations to follow. See orders for details. MMODL / IJN: [id number] /
[2024-11-06] MEDS ORDERED: VANCOMYCIN 1,250 MG in SODIUM CHLORIDE 0.9% 250 ML IVPB SCH (06:00)
[2024-11-06] MEDS: GABAPENTIN 300 MG CAP PO SCH (06:13)
[2024-11-06 06:20] LABS: Glucose,Whole Blood 120 mg/dL (70-110)
[2024-11-06] MEDS: INSULIN LISPRO (HumaLOG) 100 UNIT/ML 10 mL VL SQ SCH (06:29)
[2024-11-06 08:38] LABS: Basophils # (A) 0.03 X 10*3/uL (0.00-0.10); Basophils % (A) 0.3 %; Eosinophils # (A) 0 X 10*3/uL (0.04-0.35); Eosinophils % (A) 0 %; HCT 30.1 % (37.2-46.3); HGB 10.1 g/dL (12.0-15.0); Lymphocytes # (A) 1.77 X 10*3/uL (0.90-5.00); Lymphocytes % (A) 15.8 %; MCHC 33.6 g/dL (32.0-37.0); MCV 86.5 FL (80.0-97.0); Mean Platelet Volume 10.7 FL (9.5-12.2); Monocytes # (A) 0.89 X 10*3/uL (0.20-1.00); Monocytes % (A) 7.9 %; NRBC Per 100 WBC 0 X 10*3/uL (0.00-0.01); Neutrophils # (A) 8.47 X 10*3/uL (1.80-7.70); Neutrophils % (A) 75.6 %; Platelet Count 453 X 10*3/uL (140-440); RBC 3.48 X 10*6/uL (4.10-5.20); WBC 11.21 X 10*3/uL (4.50-10.00)
[2024-11-06] MEDS ORDERED: NON FORMULARY DRUG (Icosapent Ethyl [Icosapent Ethyl] 1 GM Capsule) PO SCH (09:00)
[2024-11-06] MEDS: ATORVASTATIN 40 MG TAB PO SCH (09:41)
[2024-11-06] MEDS: busPIRone HCl 10 MG TAB PO SCH (09:41)
[2024-11-06] MEDS: PANTOPRAZOLE 40 MG TABLET PO SCH (09:41)
[2024-11-06] MEDS: hydrOXYzine HCL 25 MG TAB PO SCH (09:42)
[2024-11-06] MEDS: VORTIOXETINE HYDROBROMIDE 20 MG TABLET PO SCH (09:42)
[2024-11-06] MEDS: NON FORMULARY DRUG (Cariprazine Hcl [Vraylar] 4.5 MG Capsule) PO SCH (09:48)
[2024-11-06] MEDS: HYDROcodone/APAP 5-325MG 1 EACH TAB PO PRN (10:09)
[2024-11-06] MEDS: LATANOPROST 0.005% OPHTH DROPS 2.5 ML BTL BOTH EYES SCH (10:24)
[2024-11-06 10:45] LABS: BUN/Creat Ratio 27.25 Ratio (12.00-20.00); Blood Urea Nitrogen 21.8 mg/dL (9.0-27.0); Chloride 105 mmol/L (96-109); Glucose 129 mg/dL (70-110); Potassium 3.7 mmol/L (3.5-5.5); Sodium 137 mmol/L (135-145)
[2024-11-06 10:46] LABS: Calcium 9.1 mg/dL (8.7-10.3); Carbon Dioxide 27.3 mmol/L (21.6-31.8)
--- NOTE | 2024-11-06 10:50 | P.PN ---
Subjective This is a pleasant 59 years old female who presents because of severe back pain Patient currently lying in bed looks not in distress stating that her pain in her lower back is 0/10 if she is at rest but gets more than that up to 10 if she moves. She reports pain in both legs more in the right leg than left leg although she says she has little weak and numb but her not many problems and she can move both upper and lower extremities with no weakness. Strength looks 5/5 in both lower extremities. Sensation looks intact. She denies any chest pain or dyspnea or other GI/ symptoms. Patient evaluated by orthopedic team and recommended MRI of the lumbar spine which is pending No need for antibiotics as per ID team as patient does not look septic pending further evaluation and MRI. She is hemodynamically stable and afebrile WBC is 11.2. Hemoglobin 10.1. Platelet count slightly elevated well BMP is unremarkable. Glucose 129. Liver enzymes not elevated. EKG showing sinus rhythm at [address]-T changes CT of the lumbar spine was reviewed and is as above. Objective - Vital Signs Vital signs: Vital Signs Temp 98.4 F 11/06/24 08:17 Pulse 101 H 11/06/24 08:17 Resp 19 11/06/24 08:17 BP 183/92 11/06/24 08:17 Pulse Ox 97 11/06/24 08:17 FiO2 Intake & Output 11/05/24 11/06/24 11/06/24 18:59 06:59 18:59 Output Total 500 Balance -500 Weight 68.039 kg Output: Urine 500 Other: Voiding Method External Catheter - Labs CBC & Chem 7: 11/06/24 06:23 11/06/24 06:23 Labs: Abnormal Lab Results - Last 24 Hours (Table) 11/05/24 11/05/24 11/05/24 Range/Units 15:08 15:08 15:08 WBC 10.61 H (4.50-10.00) 10*3/uL RBC 3.88 L (4.10-5.20) 10*6/uL Hgb 11.7 L (12.0-15.0) g/dL Hct 33.5 L (37.2-46.3) % Plt Count 476 H (140-440) 10*3/uL Immature Gran # 0.05 H (0.00-0.04) 10*3/uL Neutrophils # 9.18 H (1.80-7.70) 10*3/uL Monocytes # 0.18 L (0.20-1.00) 10*3/uL Eosinophils # (0.04-0.35) X 10*3/uL ESR 32 H (0-30) mm/Hr Sodium 129 L (137-145) mmol/L Chloride 95 L (98-107) mmol/L BUN 20 H (7-17) mg/dL BUN/Creatinine Ratio (12.00-20.00) Ratio Glucose (70-110) mg/dL POC Glucose (mg/dL) (70-110) mg/dL Calcium 10.4 H (8.4-10.2) mg/dL 11/06/24 11/06/24 11/06/24 Range/Units 06:19 06:23 06:23 WBC 11.21 H (4.50-10.00) 10*3/uL RBC 3.48 L (4.10-5.20) 10*6/uL Hgb 10.1 L (12.0-15.0) g/dL Hct 30.1 L (37.2-46.3) % Plt Count 453 H (140-440) 10*3/uL Immature Gran # 0.05 H (0.00-0.04) 10*3/uL Neutrophils # 8.47 H (1.80-7.70) 10*3/uL Monocytes # (0.20-1.00) 10*3/uL Eosinophils # 0 L (0.04-0.35) X 10*3/uL ESR (0-30) mm/Hr Sodium (137-145) mmol/L Chloride (98-107) mmol/L BUN (7-17) mg/dL BUN/Creatinine Ratio 27.25 H (12.00-20.00) Ratio Glucose 129 H (70-110) mg/dL POC Glucose (mg/dL) 120 H (70-110) mg/dL Calcium (8.4-10.2) mg/dL Assessment and Plan Assessment: Severe back pain with radiculopathy at possible gait dysfunction related to pain Severe spinal stenosis Moderate to severe degenerative disc disease of L5-S1 Hypertension Hyperlipidemia Diabetes mellitus Plan: Continue with pain management Orthopedic team on the case recommended MRI of the spine which is pending No need for antibiotics as per ID team pending further workup and imaging Continue with pain management Further recommendation based on the clinical course GI prophylaxis: Ppi DVT prophylaxis mechanical, subcutaneous heparin Prognosis is guarded
[2024-11-06 11:32] LABS: Glucose,Whole Blood 127 mg/dL (70-110)
--- NOTE | 2024-11-06 12:09 | P.PN ---
Progress Note - Text Progress Note Date: 11/06/24 Orthopedic spine: History of present illness: Patient is a very pleasant 59-year-old female who is seen examined at the bedside for follow-up evaluation for her lumbar spine. She has possible discitis at L4-5. Lumbar MRI imaging has been ordered. This continues to be pending. Patient states she continues to have significant low back pain. She does have some pain in her lower extremities which is exacerbated increased activities. She states the symptoms are chronic for her and have been ongoing for years. She denies any new changes in her lower extremities. She states she has followed with pain management and had her last injection approximately 1 month ago. She states that injection did help her lumbar spine but not her lower extremity pain. She has no other complaints at the bedside. She is currently on IV antibiotics and being seen by infectious disease. She has been seen by medicine as well. Physical exam: Patient is awake, alert, and oriented 3 Vital signs stable Good chest excursion with deep inspiration and expiration Examination of lumbar spine reveals skin is intact with no abrasions, lacerations, or bruises; no erythema, purulence or signs of infection Pain at her lumbar spine and lower extremities while rolling to her side while lying in bed Dorsiflexion, plantarflexion, and extensor hallucis longus positive sustained bilaterally Lower extremity strength 5/5 bilaterally Straight leg test negative bilateral lower extremities No signs or symptoms of DVT; no calf pain No pain with internal and external rotation of the hips bilaterally Neurovascularly intact Pertinent studies: CT of the lumbar spine taken on 11/05/2024: L4-5 severe degenerative disc disease with some sclerotic margins and bony erosion around the disc space presumptive for discitis per report; L4-5 and L5-S1 significant degenerative spondylosis Assessment: Acute on chronic low back pain L4-5 possible discitis Bilateral lower extremity radiculopathy, chronic, without neurologic loss L4-5 and L5-S1 degenerative spondylosis History of injection with pain management with last injection approximate 1 month ago Diabetes mellitus Hypertension Hyperlipidemia Plan: 1. Patient has possible discitis at L4-5. She has chronic low back pain with chronic lower extremity radiculopathy. She has not had any change in her symptoms in regards to her lower extremities in years. She did recently undergo an injection at her lumbar spine with pain management with some improvement of her back pain. She has not had improvement of her lower extremity radiculopathy. She states her current symptoms are chronic in nature and have not had any acute change other than her current difficulty with controlling her back pain. MRI imaging is currently pending for her lumbar spine. We did discuss once this is completed, we will plan to review this MRI imaging and follow-up to discuss further treatment options. Currently, we will plan to have the patient continue following with infectious disease. Patient has been started on IV antibiotics. Patient will also continue to be seen and examined by medicine for her other medical diagnoses.
--- NOTE | 2024-11-06 16:29 | MR ---
EXAMINATION TYPE: MR lumbar spine wo/w con DATE OF EXAM: 11/06/2024 4:13 PM COMPARISON: 03/22/2024 CLINICAL INDICATION: Female, 59 years old with history of Low back pain, possible L4-5 discitis, Low back pain, possible L4-5 discitis IV Contrast: 7 cc Gadobutrol (None if empty) TECHNIQUE: Multiplanar, multisequence images of the lumbar spine were acquired without and with 7 mL intravenous Gadobutrol gadolinium contrast. Findings: The lumbar vertebral segments are normal in height and alignment there is no fracture or subluxation. At the L4-5 level, there is marked enhancement of the L4 and L5 vertebral segments and the suggestion of mild enhancement of the paraspinal soft tissues consistent with discitis and osteomyelitis. In ad dition, secondary to marked circumferential disc bulge, facet hypertrophy and thickening of ligamentu m flavum severe L4-5 spinal stenosis. At the L3-4 level there is mild disc space narrowing and marked circumferential disc bulge consistent with mild degenerative disc disease. Secondary to mild facet hypertrophy and thickening ligamentum f lavum, there is a moderate spinal stenosis. At the L5-S1 level there is moderate disc space narrowing with discogenic endplate changes and symmet abbe disc bulge with moderate degenerative disc disease there is a small central disc protrusion with minimal mass effect on the ventral aspect of thecal sac. There is moderate facet hypertrophy at the L 5-S1 level. Visualized sacrum and SI joints normal. IMPRESSION: 1. Findings consistent with acute osteomyelitis and discitis at the L4-5 level. 2. Stable severe L4-5 spinal stenosis. 3. Stable moderate L3-4 spinal stenosis 4. Multilevel degenerative disease L3-4 and L5-S1. 5 severe neuroforaminal stenosis at L4-5 level rosie aterally and severe neural foraminal stenosis at the L5-S1 level on the left. [facility], , 11/06/2024 4:27 PM
[2024-11-06 17:04] LABS: Glucose,Whole Blood 139 mg/dL (70-110)
[2024-11-06] MEDS ORDERED: FAMOTIDINE 20 MG/2 ML VIAL IV SCH (21:00)
[2024-11-06] MEDS ORDERED: HEPARIN SODIUM,PORCINE 5,000 UNIT/ML 1 ML VIAL SQ SCH (21:00)
[2024-11-06 21:06] LABS: Glucose,Whole Blood 166 mg/dL (70-110)
[2024-11-07] MEDS: LORazepam 1 MG/0.5 ML VIAL IV PRN (02:11)
[2024-11-07] MEDS: hydrALAZINE HCL 20 MG/ML 1 ML VIAL IVP PRN (03:45)
[2024-11-07 06:27] LABS: Glucose,Whole Blood 74 mg/dL (70-110)
[2024-11-07] MEDS: amLODIPine 5 MG TAB PO SCH (07:59)
--- NOTE | 2024-11-07 09:29 | P.PN ---
Progress Note - Text Progress Note Date: 11/07/24 Orthopedic spine: History of present illness: Patient is a very pleasant 59-year-old female who is seen examined at the bedside for follow-up evaluation for her lumbar spine. She has possible discitis at L4-5. Patient states she continues to have significant low back pain. She states her pain has been less controlled since converting to a softer bed. She was resting comfortably when I entered the room. She does have pain with movements while lying in bed. She does have some pain in her lower extremities which is exacerbated increased activities. She states the symptoms are chronic for her and have been ongoing for years. She states she does have some increased leg pain today. She continues to be neurovascularly intact. She states she has followed with pain management and had her last injection approximately 1 month ago. She states that injection did help her lumbar spine but not her lower extremity pain. She has no other complaints at the bedside. Since being seen and examined yesterday, lumbar MRI imaging has been performed and reviewed. Patient has evidence of discitis at L4-5 with reaction within the vertebral bodies of L4 and 5. She does have evidence of severe stenosis at L4-5 as well as L3-4. There is not any obvious evidence of abscess or epidural phlegmon. She is currently on IV antibiotics and being seen by infectious disease. Infectious disease was planning to continue with antibiotic regimen. She has been seen by medicine as well. Physical exam: Patient is awake, alert, and oriented 3 Vital signs stable Good chest excursion with deep inspiration and expiration Patient request for me not to examine her lumbar spine today Pain at her lumbar spine and lower extremities while rolling to her side while lying in bed Dorsiflexion, plantarflexion, and extensor hallucis longus positive sustained bilaterally Lower extremity strength 5/5 bilaterally Straight leg test negative bilateral lower extremities No signs or symptoms of DVT; no calf pain No pain with internal and external rotation of the hips bilaterally Neurovascularly intact Pertinent studies: MRI of the lumbar spine taken on 11/06/2024: L4-5 discitis with reaction within the vertebral bodies of L4 and 5; L4-5 severe spinal stenosis; L3-4 spinal stenosis; no obvious evidence of abscess or epidural phlegmon. CT of the lumbar spine taken on 11/05/2024: L4-5 severe degenerative disc disease with some sclerotic margins and bony erosion around the disc space presumptive for discitis per report; L4-5 and L5-S1 significant degenerative spondylosis Assessment: Acute on chronic low back pain L4-5 discitis L4-5 severe spinal stenosis L3-4 spinal stenosis Bilateral lower extremity radiculopathy, chronic, without neurologic loss L4-5 and L5-S1 degenerative spondylosis History of injection with pain management with last injection approximate 1 month ago Diabetes mellitus Hypertension Hyperlipidemia Plan: 1. Patient has evidence of discitis at L4-5 with reaction within the vertebral bodies. She has chronic low back pain with chronic lower extremity radiculopathy. He does continue to have increased pain with increased activities at her lumbar spine. She states her legs were more painful this morning. She is neurovascular intact in her lower extremities. She has good range of motion of her lower extremities. She does not have any lower extremity weakness. She was resting comfortably at the bedside when I entered the room. Currently, we will plan to have her continue with conservative treatment. She will continue with IV antibiotics per Dr. Mueller in infectious disease. We discussed her discitis as well as her spinal stenosis in significant detail. We did discuss if she is not having any improvement over the next several days we could consider the possibility of surgical decompression and irrigation and debridement. Given the severity of her stenosis and disc changes we also discu ssed she may need further surgical intervention in the future with possible decompression and fusion. We will continue to follow the patient closely. 2. Patient will also continue to be seen and examined by medicine for her other medical diagnoses.
[2024-11-07 11:36] LABS: Glucose,Whole Blood 164 mg/dL (70-110)
--- NOTE | 2024-11-07 14:51 | P.PN ---
Subjective Progress Note Date: 11/06/24 Principal diagnosis: Reason for follow-up is L4-5 discitis/osteomyelitis Patient is a 59-year-old female with a past medical history significant for diabetes mellitus reflux hypertension hyperlipidemia presenting to the hospital for evaluation of worsening back pain patient did have a history of chronic back pain for which she did follow-up with and patient has multiple injection to the spine patient did have a CT of the lumbar spine suggestive of discitis osteomyelitis of the L4-5 level prompted this consultation. On today's evaluation that is 11/06/2024,the patient remains to be afebrile, patient is on room air not requiring supplemental oxygen and denies any shortness of breath no chest pain or cough.Patient denies having any nausea or vomiting, no abdominal pain and no diarrhea circumventing of significant lower back pain radiating to the leg. Patient white count is 11.21, creatinine 0.8 Objective - Vital Signs Vital signs: Vital Signs Temp 98 F 11/06/24 12:08 Pulse 95 11/06/24 12:08 Resp 16 11/06/24 12:08 BP 154/80 11/06/24 12:08 Pulse Ox 98 11/06/24 12:08 FiO2 Intake & Output 11/05/24 11/06/24 11/06/24 18:59 06:59 18:59 Output Total 500 Balance -500 Weight 68.039 kg 68.039 kg Output: Urine 500 Other: Voiding Method External Catheter External Catheter - Exam GENERAL DESCRIPTION: Middle-age female lying in bed in no distress RESPIRATORY SYSTEM: Unlabored breathing , decreased breath sounds at bases HEART: S1 S2 regular rate and rhythm , ABDOMEN: Soft , no tenderness EXTREMITIES: No edema feet - Labs CBC & Chem 7: 11/06/24 06:23 11/06/24 06:23 Labs: Abnormal Lab Results - Last 24 Hours (Table) 11/05/24 11/05/24 11/05/24 Range/Units 15:08 15:08 15:08 WBC 10.61 H (4.50-10.00) 10*3/uL RBC 3.88 L (4.10-5.20) 10*6/uL Hgb 11.7 L (12.0-15.0) g/dL Hct 33.5 L (37.2-46.3) % Plt Count 476 H (140-440) 10*3/uL Immature Gran # 0.05 H (0.00-0.04) 10*3/uL Neutrophils # 9.18 H (1.80-7.70) 10*3/uL Monocytes # 0.18 L (0.20-1.00) 10*3/uL Eosinophils # (0.04-0.35) X 10*3/uL ESR 32 H (0-30) mm/Hr Sodium 129 L (137-145) mmol/L Chloride 95 L (98-107) mmol/L BUN 20 H (7-17) mg/dL BUN/Creatinine Ratio (12.00-20.00) Ratio Glucose (70-110) mg/dL POC Glucose (mg/dL) (70-110) mg/dL Calcium 10.4 H (8.4-10.2) mg/dL 11/06/24 11/06/24 11/06/24 Range/Units 06:19 06:23 06:23 WBC 11.21 H (4.50-10.00) 10*3/uL RBC 3.48 L (4.10-5.20) 10*6/uL Hgb 10.1 L (12.0-15.0) g/dL Hct 30.1 L (37.2-46.3) % Plt Count 453 H (140-440) 10*3/uL Immature Gran # 0.05 H (0.00-0.04) 10*3/uL Neutrophils # 8.47 H (1.80-7.70) 10*3/uL Monocytes # (0.20-1.00) 10*3/uL Eosinophils # 0 L (0.04-0.35) X 10*3/uL ESR (0-30) mm/Hr Sodium (137-145) mmol/L Chloride (98-107) mmol/L BUN (7-17) mg/dL BUN/Creatinine Ratio 27.25 H (12.00-20.00) Ratio Glucose 129 H (70-110) mg/dL POC Glucose (mg/dL) 120 H (70-110) mg/dL Calcium (8.4-10.2) mg/dL 11/06/24 Range/Units 11:29 WBC (4.50-10.00) 10*3/uL RBC (4.10-5.20) 10*6/uL Hgb (12.0-15.0) g/dL Hct (37.2-46.3) % Plt Count (140-440) 10*3/uL Immature Gran # (0.00-0.04) 10*3/uL Neutrophils # (1.80-7.70) 10*3/uL Monocytes # (0.20-1.00) 10*3/uL Eosinophils # (0.04-0.35) X 10*3/uL ESR (0-30) mm/Hr Sodium (137-145) mmol/L Chloride (98-107) mmol/L BUN (7-17) mg/dL BUN/Creatinine Ratio (12.00-20.00) Ratio Glucose (70-110) mg/dL POC Glucose (mg/dL) 127 H (70-110) mg/dL Calcium (8.4-10.2) mg/dL Assessment and Plan (1) Discitis Current Visit: Yes Status: Acute Code(s): M46.40 - DISCITIS, UNSPECIFIED, SITE UNSPECIFIED SNOMED Code(s): 5150064 (2) Osteomyelitis Current Visit: Yes Status: Acute Code(s): M86.9 - OSTEOMYELITIS, UNSPECIFIED SNOMED Code(s): 88223393 Plan: 1patient presented to hospital with excruciating pain to the lower back rating down to the leg and this patient did have a history of chronic back pain and has received multiple injection to the spine last 1 about a month ago now with abnormal CT suspicious for discitis/osteomyelitis patient however not running any fever did have a normal white count and does not look toxic 2-patient is currently waiting for MRI to be completed ordered by orthopedics if suggestive of discitis will need sampling for microbiological diagnosis and will hold on antibiotic at this point as the patient does not look toxic to increase the yield of those culture Dictation was produced using [employer] software. please excuse any grammatical, word or spelling errors. Time with Patient: Less than 30
--- NOTE | 2024-11-07 14:52 | P.PN ---
Subjective Progress Note Date: 11/07/24 Principal diagnosis: Reason for follow-up is L4-5 discitis/osteomyelitis Patient is a 59-year-old female with a past medical history significant for diabetes mellitus reflux hypertension hyperlipidemia presenting to the hospital for evaluation of worsening back pain patient did have a history of chronic back pain for which she did follow-up with and patient has multiple injection to the spine patient did have a CT of the lumbar spine suggestive of discitis osteomyelitis of the L4-5 level prompted this consultation. On today's evaluation that is 11/07/2024, the patient continues to be afebrile, the patient is on room air and breathing comfortably, the Pt denies having any chest pain or cough, the patient denies having any abdominal pain no vomiting or any diarrhea patient did complain of pain to the lower back radiating to the leg no weakness of no bowel or bladder problem. No new lab has been obtained today blood cultures are pending MRI has been suggestive of discitis and osteomyelitis but no abscess Objective - Vital Signs Vital signs: Vital Signs Temp 98.1 F 11/07/24 06:47 Pulse 107 H 11/07/24 06:47 Resp 19 11/07/24 06:47 BP 212/98 11/07/24 06:47 Pulse Ox 97 11/07/24 06:47 FiO2 Intake & Output 11/06/24 11/07/24 11/07/24 18:59 06:59 18:59 Output Total 1000 Balance -1000 Weight 68.039 kg Output: Urine 1000 Other: Voiding Method External Catheter External Catheter External Catheter # Voids 1 - Exam GENERAL DESCRIPTION: Middle-age female lying in bed in no distress RESPIRATORY SYSTEM: Unlabored breathing , decreased breath sounds at bases HEART: S1 S2 regular rate and rhythm , ABDOMEN: Soft , no tenderness EXTREMITIES: No edema feet - Labs CBC & Chem 7: 11/06/24 06:23 11/06/24 06:23 Labs: Abnormal Lab Results - Last 24 Hours (Table) 11/06/24 11/06/24 11/07/24 Range/Units 17:03 21:05 11:33 POC Glucose (mg/dL) 139 H 166 H 164 H (70-110) mg/dL Microbiology - Last 24 Hours (Table) 11/05/24 15:05 Blood Culture - Preliminary Blood Assessment and Plan (1) Discitis Current Visit: Yes Status: Acute Code(s): M46.40 - DISCITIS, UNSPECIFIED, SITE UNSPECIFIED SNOMED Code(s): 2303136 (2) Osteomyelitis Current Visit: Yes Status: Acute Code(s): M86.9 - OSTEOMYELITIS, UNSPECIFIED SNOMED Code(s): 39635744 Plan: 1patient presented to hospital with excruciating pain to the lower back rating down to the leg and this patient did have a history of chronic back pain and has received multiple injection to the spine last 1 about a month ago now with abnormal CT suspicious for discitis/osteomyelitis patient however not running any fever did have a normal white count and does not look toxic 2-patient MRI has been suggestive of L4-5 discitis/osteomyelitis IR has been consulted for sampling of the area for microbiological diagnosis as orthopedic is not recommending any surgical intervention at this point I did discuss in detailed with surgeon and [employer] T[employer]ER for admitting team once the sampling is done we will start the patient on cefepime and vancomycin pending culture finalization Dictation was produced using [employer] dictation software. please excuse any grammatical, word or spelling errors. Time with Patient: Greater than 30
[2024-11-07 17:19] LABS: Glucose,Whole Blood 125 mg/dL (70-110)
--- NOTE | 2024-11-07 18:05 | CT ---
EXAMINATION TYPE: CT guided abscess drainage DATE OF EXAM: 11/07/2024 5:10 PM CLINICAL INDICATION:Female, 59 years old with history of L4-5 disc aspiration; L4/L5 disc aspiration COMPARISON: Correlation MRI 11/06/[address] 11/05/2024 DLP: [id number] ATTENDING: Dr. Garcia TECHNIQUE: CT guided percutaneous intradiscal aspiration at L4-L5. Nursing administered 0.5 mg IV Dilaudid to th e patient. The patient was monitored by a qualified trained nurse independent of the Radiologist. FINDINGS: The procedure was explained to the patient. All questions were answered and informed consent was obta ined. The patient was placed prone and transverse CT images through the L4-L5 region were obtained. The overlying skin was marked and prepped using sterile method. Timeout was taken per protocol. Following administration 1% local lidocaine anesthesia, a 5 Stateless 20-gauge spinal needle was slowly advanced in increments at a lateral inclination from the right side utilizing a paraspinal approach i n order to enter the L4-L5 disc interspace. The patient's response was carefully monitored in order t o avoid the exiting L4 nerve root. Once the L4-L5 disc space was entered, aspiration yielded no fluid. Subsequently, a total of 3 mL abdirahman rile saline was injected and wash yielded 2 mL red tinged fluid. 1 mL was placed in a plastic cup wit h screw on lid and the other 1 mL was placed in a vacuum vial. These were labeled and sent for benton burks analysis. The needle was removed, hemostasis obtained, and a dressing placed. CT scan through the level demonstrated no evident complication. Patient was taken for postprocedure observation in stable condition. IMPRESSIONS: Attempted CT-guided L4-L5 intradiscal aspiration. We subsequently performed a saline wash and 2 mL of red-tinged fluid was returned. Laboratory analysis pending. [facility], , 11/07/2024 6:03 PM
[2024-11-07 20:27] LABS: Glucose,Whole Blood 151 mg/dL (70-110)
[2024-11-07] MEDS: METOPROLOL SUCCINATE (ER) 25 MG TAB.ER.24H PO SCH (21:35)
[2024-11-07] MEDS ORDERED: VANCOMYCIN IV PER PHARMACY 1 EACH MISC MISCELLANE PRN (22:41)
[2024-11-08] MEDS: VANCOMYCIN 1,250 MG in SODIUM CHLORIDE 0.9% 250 ML IVPB ONE (00:41)
[2024-11-08 06:05] LABS: Glucose,Whole Blood 131 mg/dL (70-110)
[2024-11-08 08:07] LABS: African American GFR (CKD) >90 (>60 ml/min/1.73 sqM); Non-African American GFR(CKD) >90 (>60 ml/min/1.73 sqM)
[2024-11-08] MEDS: Cariprazine Hcl [Vraylar] 4.5 MG Capsule PO SCH (08:31)
--- NOTE | 2024-11-08 09:17 | P.PN ---
Progress Note - Text Progress Note Date: 11/08/24 History of present illness: Patient is a very pleasant 59-year-old female who is seen examined at the bedside for follow-up evaluation for her lumbar spine. She has possible discitis at L4-5. Patient states she continues to have significant low back pain. She states her pain has been less controlled since converting to a softer bed. She was resting comfortably when I entered the room. She does have pain with movements while lying in bed. She does have some pain in her lower extremities which is exacerbated increased activities. She states the symptoms are chronic for her and have been ongoing for years. She states she does have some increased leg pain today. She continues to be neurovascularly intact. She states she has followed with pain management and had her last injection approximately 1 month ago. She states that injection did help her lumbar spine but not her lower extremity pain. She has no other complaints at the bedside. Since being seen and examined yesterday, lumbar MRI imaging has been performed and reviewed. Patient has evidence of discitis at L4-5 with reaction within the vertebral bodies of L4 and 5. She does have evidence of severe stenosis at L4-5 as well as L3-4. There is not any obvious evidence of abscess or epidural phlegmon. She is currently on IV antibiotics and being seen by infectious disease. Infectious disease was planning to continue with antibiotic regimen. She has been seen by medicine as well. 11/08/2024 Progress: On 11/07/[address]-guided L4-L5 intradiscal aspiration and sent for lab analysis. Patient states their pain is the same or slightly better. This morning they complain of pain in their anterior thighs. Physical exam: Patient is awake, alert, and oriented 3 Good chest excursion with deep inspiration and expiration Patient request for me not to examine her lumbar spine today Pain at her lumbar spine and lower extremities while rolling to her side while lying in bed Dorsiflexion, plantarflexion, and extensor hallucis longus positive sustained bilaterally Lower extremity strength 5/5 bilaterally Straight leg test negative bilateral lower extremities Calves are soft to palpation. No palpable gaps. Negative Homans' sign. No pain with internal and external rotation of the hips bilaterally Patient states sensation is intact to light touch of bilateral lower extremities. Pertinent studies: MRI of the lumbar spine taken on 11/06/2024: L4-5 discitis with reaction within t he vertebral bodies of L4 and 5; L4-5 severe spinal stenosis; L3-4 spinal stenosis; no obvious evidence of abscess or epidural phlegmon. CT of the lumbar spine taken on 11/05/2024: L4-5 severe degenerative disc disease with some sclerotic margins and bony erosion around the disc space presumptive for discitis per report; L4-5 and L5-S1 significant degenerative spondylosis Assessment: Acute on chronic low back pain L4-5 discitis L4-5 severe spinal stenosis L3-4 spinal stenosis Bilateral lower extremity radiculopathy, chronic, without neurologic loss L4-5 and L5-S1 degenerative spondylosis History of injection with pain management with last injection approximate 1 month ago Diabetes mellitus Hypertension Hyperlipidemia Plan: 1. Patient has evidence of discitis at L4-5 with reaction within the vertebral bodies. She has chronic low back pain with chronic lower extremity radiculopathy. He does continue to have increased pain with increased activities at her lumbar spine. She states her legs were more painful this morning. She is neurovascular intact in her lower extremities. She has good range of motion of her lower extremities. She does not have any lower extremity weakness. She was resting comfortably at the bedside when I entered the room. Continue plan to have her continue with conservative treatment. She will continue with IV antibiotics per Dr. Mueller in infectious disease. Scout Fang did discuss if she is not having any improvement over the next several days we could consider the possibility of surgical decompression and irrigation and debridement. Given the severity of her stenosis and disc changes we also discussed she may need further surgical intervention in the future with possible decompression and fusion. 11/07/2024 a LSO brace was ordered. At time of exam patient was not wearing brace. Brace was in the room. She may utilize this brace for comfort and support as needed with increased activities while working with physical therapy. She may increase her mobility and ambulation with PT and OT. We will continue to follow the patient closely. 2. Patient will also continue to be seen and examined by medicine for her other medical diagnoses.
[2024-11-08 11:34] LABS: Appearance,BF Blood Tinged (Clear)
[2024-11-08 11:37] LABS: Glucose,Whole Blood 132 mg/dL (70-110)
[2024-11-08] MEDS: VANCOMYCIN 1,250 MG in SODIUM CHLORIDE 0.9% 250 ML IVPB SCH (12:05)
[2024-11-08 16:37] LABS: Glucose,Whole Blood 140 mg/dL (70-110)
[2024-11-08 20:01] LABS: Glucose,Whole Blood 147 mg/dL (70-110)
--- NOTE | 2024-11-08 22:03 | P.PN ---
Subjective Progress Note Date: 11/07/24 59 years old female who presents because of severe back pain Patient currently lying in bed looks not in distress stating that her pain in her lower back is 0/10 if she is at rest but gets more than that up to 10 if she moves. She reports pain in both legs more in the right leg than left leg although she says she has little weak and numb but her not many problems and she can move both upper and lower extremities with no weakness. Strength looks 5/5 in both lower extremities. Sensation looks intact. She denies any chest pain or dyspnea or other GI/ symptoms. Patient evaluated by orthopedic team and recommended MRI of the lumbar spine which is pending No need for antibiotics as per ID team as patient does not look septic pending further evaluation and MRI. She is hemodynamically stable and afebrile WBC is 11.2. Hemoglobin 10.1. Platelet count slightly elevated well BMP is unremarkable. Glucose 129. Liver enzymes not elevated. EKG showing sinus rhythm at [address]-T changes CT of the lumbar spine was reviewed and is as above. Objective - Vital Signs Vital signs: Vital Signs Temp 98.1 F 11/07/24 06:47 Pulse 107 H 11/07/24 06:47 Resp 19 11/07/24 06:47 BP 212/98 11/07/24 06:47 Pulse Ox 97 11/07/24 06:47 FiO2 Intake & Output 11/06/24 11/07/24 11/07/24 18:59 06:59 18:59 Output Total 1000 Balance -1000 Weight 68.039 kg Output: Urine 1000 Other: Voiding Method External Catheter External Catheter External Catheter # Voids 1 - Exam GENERAL: Patient is well-developed and well-nourished. Patient is nontoxic and well- hydrated and is in moderate distress. ENT:Neck is soft and supple. No significant lymphadenopathy is noted. Oropharynx is clear. Moist mucous membranes. Neck has full range of motion without eliciting any pain. EYES:The sclera were anicteric and conjunctiva were pink and moist. Extraocular movements were intact and pupils were equal round and reactive to light. Ey elids were unremarkable. PULMONARY:Unlabored respirations. Good breath sounds bilaterally. No audible rales rhonchi or wheezing was noted. CARDIOVASCULAR:There is a regular rate and rhythm without any murmurs gallops or rubs. ABDOMEN:Soft and nontender with normal bowel sounds. SKIN:Skin is clear with no lesions or rashes and otherwise unremarkable. NEUROLOGIC:Patient is alert and oriented x3. Cranial nerves II through XII are grossly intact. Patient is able to move the legs however it causes her excruciating pain in the back and down the posterior aspect of her legs. Normal speech, volume and content. Symmetrical smile. Patient straight leg test is positive at 15 degrees bilaterally. Perineum exam is normal sensation MUSCULOSKELETAL:Unable to assess leg range of motion fully because it causes her too much pain. LYMPHATICS:No significant lymphadenopathy is noted PSYCHIATRIC:Normal psychiatric evaluation. - Labs CBC & Chem 7: 11/06/24 06:23 11/08/24 07:35 Labs: Abnormal Lab Results - Last 24 Hours (Table) 11/06/24 11/06/24 11/07/24 Range/Units 17:03 21:05 11:33 POC Glucose (mg/dL) 139 H 166 H 164 H (70-110) mg/dL Microbiology - Last 24 Hours (Table) 11/05/24 15:05 Blood Culture - Preliminary Blood Assessment and Plan Assessment: Severe back pain with radiculopathy at possible gait dysfunction related to pain Severe spinal stenosis Moderate to severe degenerative disc disease of L5-S1 Hypertension Hyperlipidemia Diabetes mellitus Plan: Continue with pain management Orthopedic team on the case recommended MRI of the spine which is pending No need for antibiotics as per ID team pending further workup and imaging Continue with pain management Further recommendation based on the clinical course GI prophylaxis: Ppi DVT prophylaxis mechanical, subcutaneous heparin Prognosis is guarded
--- NOTE | 2024-11-08 22:04 | P.PN ---
Subjective Progress Note Date: 11/08/24 59 years old female who presents because of severe back pain Patient currently lying in bed looks not in distress stating that her pain in her lower back is 0/10 if she is at rest but gets more than that up to 10 if she moves. She reports pain in both legs more in the right leg than left leg although she says she has little weak and numb but her not many problems and she can move both upper and lower extremities with no weakness. Strength looks 5/5 in both lower extremities. Sensation looks intact. She denies any chest pain or dyspnea or other GI/ symptoms. Patient evaluated by orthopedic team and recommended MRI of the lumbar spine which is pending No need for antibiotics as per ID team as patient does not look septic pending further evaluation and MRI. She is hemodynamically stable and afebrile WBC is 11.2. Hemoglobin 10.1. Platelet count slightly elevated well BMP is unremarkable. Glucose 129. Liver enzymes not elevated. EKG showing sinus rhythm at [address]-T changes CT of the lumbar spine was reviewed and is as above. 11/08/2024 patient presented to hospital with excruciating pain to the lower back rating down to the leg and this patient did have a history of chronic back pain and has received multiple injection to the spine last 1 about a month ago now with abnormal CT suspicious for discitis/osteomyelitis patient however not running any fever did have a normal white count and does not look toxic -patient MRI has been suggestive of L4-5 discitis/osteomyelitis IR has been consulted for sampling of the area for microbiological diagnosis as orthopedic is not recommending any surgical intervention at this point I did discuss in detailed with surgeon and FISH AGENT for admitting team once the sampling is done we will start the patient on cefepime and vancomycin pending culture finalization Objective - Vital Signs Vital signs: Vital Signs Temp 98.1 F 11/08/24 13:33 Pulse 87 11/08/24 13:33 Resp 22 11/08/24 13:33 BP 175/85 11/08/24 13:33 Pulse Ox 97 11/08/24 13:33 FiO2 Intake & Output 11/07/24 11/08/24 11/08/24 18:59 06:59 18:59 Output Total 400 325 Balance -400 -325 Output: Urine 400 325 Other: Voiding Method External Catheter External Catheter External Catheter # Voids 1 - Exam GENERAL: Patient is well-developed and well-nourished. Patient is nontoxic and well- hydrated and is in moderate distress. ENT:Neck is soft and supple. No significant lymphadenopathy is noted. Oropharynx is clear. Moist mucous membranes. Neck has full range of motion without eliciting any pain. EYES:The sclera were anicteric and conjunctiva were pink and moist. Extraocular movements were intact and pupils were equal round and reactive to light. Eyelids were unremarkable. PULMONARY:Unlabored respirations. Good breath sounds bilaterally. No audible rales rhonchi or wheezing was noted. CARDIOVASCULAR:There is a regular rate and rhythm without any murmurs gallops or rubs. ABDOMEN:Soft and nontender with normal bowel sounds. SKIN:Skin is clear with no lesions or rashes and otherwise unremarkable. NEUROLOGIC:Patient is alert and oriented x3. Cranial nerves II through XII are grossly intact. Patient is able to move the legs however it causes her exc ruciating pain in the back and down the posterior aspect of her legs. Normal speech, volume and content. Symmetrical smile. Patient straight leg test is positive at 15 degrees bilaterally. Perineum exam is normal sensation MUSCULOSKELETAL:Unable to assess leg range of motion fully because it causes her too much pain. LYMPHATICS:No significant lymphadenopathy is noted PSYCHIATRIC:Normal psychiatric evaluation. - Labs CBC & Chem 7: 11/06/24 06:23 11/08/24 07:35 Labs: Abnormal Lab Results - Last 24 Hours (Table) 11/07/24 11/07/24 11/07/24 Range/Units 17:01 17:18 20:25 POC Glucose (mg/dL) 125 H 151 H (70-110) mg/dL Fluid Appearance Blood Tinged A (Clear) 11/08/24 11/08/24 Range/Units 06:03 11:31 POC Glucose (mg/dL) 131 H 132 H (70-110) mg/dL Fluid Appearance (Clear) Microbiology - Last 24 Hours (Table) 11/05/24 15:05 Blood Culture - Preliminary Blood Assessment and Plan Assessment: Severe back pain with radiculopathy at possible gait dysfunction related to pain Severe spinal stenosis Moderate to severe degenerative disc disease of L5-S1 Hypertension Hyperlipidemia Diabetes mellitus Plan: Continue with pain management Orthopedic team on the case recommended MRI of the spine which is pending No need for antibiotics as per ID team pending further workup and imaging Continue with pain management Further recommendation based on the clinical course GI prophylaxis: Ppi DVT prophylaxis mechanical, subcutaneous heparin Prognosis is guarded
[2024-11-09 06:00] LABS: Glucose,Whole Blood 120 mg/dL (70-110)
[2024-11-09 09:34] LABS: BUN/Creat Ratio 28.75 Ratio (12.00-20.00); Calcium 9.1 mg/dL (8.7-10.3); Carbon Dioxide 24.1 mmol/L (21.6-31.8); Chloride 107 mmol/L (96-109); Glucose 157 mg/dL (70-110); Potassium 3.9 mmol/L (3.5-5.5); Sodium 138 mmol/L (135-145)
--- NOTE | 2024-11-09 09:54 | P.PN ---
Progress Note - Text Progress Note Date: 11/09/24 History of present illness: Patient is a very pleasant 59-year-old female who is seen examined at the bedside for follow-up evaluation for her lumbar spine. She has possible discitis at L4-5. Patient states she continues to have significant low back pain. She states her pain has been less controlled since converting to a softer bed. She was resting comfortably when I entered the room. She does have pain with movements while lying in bed. She does have some pain in her lower extremities which is exacerbated increased activities. She states the symptoms are chronic for her and have been ongoing for years. She states she does have some increased leg pain today. She continues to be neurovascularly intact. She states she has followed with pain management and had her last injection approximately 1 month ago. She states that injection did help her lumbar spine but not her lower extremity pain. She has no other complaints at the bedside. Since being seen and examined yesterday, lumbar MRI imaging has been performed and reviewed. Patient has evidence of discitis at L4-5 with reaction within the vertebral bodies of L4 and 5. She does have evidence of severe stenosis at L4-5 as well as L3-4. There is not any obvious evidence of abscess or epidural phlegmon. She is currently on IV antibiotics and being seen by infectious disease. Infectious disease was planning to continue with antibiotic regimen. She has been seen by medicine as well. 11/08/2024 Progress: On 11/07/[address]-guided L4-L5 intradiscal aspiration and sent for lab analysis. Patient states their pain is the same or slightly better. This morning they complain of pain in their anterior thighs. 11/09/2024 Progress: Aspiration Gram stain and blood fluid culture preliminary with no organisms seen's. No growth after 24 hours. Patient states she has little back pain this morning. Patient states the primary source of her pain this morning is in her posterior thighs. Physical exam: Patient is awake, alert, and oriented 3 Good chest excursion with deep inspiration and expiration Patient states pain while rolling to her side while lying in bed to bilateral posterior thighs. Patient should not denies tenderness to palpation over the cervical, thoracic, and lumbar spine or paraspinal muscles. Knee extension, dorsiflexion, plantarflexion, and extensor hallucis longus 5/5 bilaterally Straight leg test negative bilateral lower extremities Calves are soft to palpation. No palpable gaps. Negative Homans' sign. No pain with internal and external rotation of the hips bilaterally Patient states sensation is intact to light touch of bilateral lower extre mities. Pertinent studies: MRI of the lumbar spine taken on 11/06/2024: L4-5 discitis with reaction within the vertebral bodies of L4 and 5; L4-5 severe spinal stenosis; L3-4 spinal stenosis; no obvious evidence of abscess or epidural phlegmon. CT of the lumbar spine taken on 11/05/2024: L4-5 severe degenerative disc disease with some sclerotic margins and bony erosion around the disc space presumptive for discitis per report; L4-5 and L5-S1 significant degenerative spondylosis Assessment: Acute on chronic low back pain L4-5 discitis L4-5 severe spinal stenosis L3-4 spinal stenosis Bilateral lower extremity radiculopathy, chronic, without neurologic loss L4-5 and L5-S1 degenerative spondylosis History of injection with pain management with last injection approximate 1 month ago Diabetes mellitus Hypertension Hyperlipidemia Plan: 1. Patient has evidence of discitis at L4-5 with reaction within the vertebral bodies. She states her legs continue to be painful this morning. Continue plan to have her continue with conservative treatment. She will continue with IV antibiotics per Dr. Mueller in infectious disease. Scout Fang did discuss if she is not having any improvement over the next several days we could consider the possibility of surgical decompression and irrigation and debridement. Given the severity of her stenosis and disc changes we also discussed she may need fu rther surgical intervention in the future with possible decompression and fusion. On 11/07/2024 a LSO brace was ordered, this morning the brace is in the room, and patient was asked if they would like to have the brace fitted and they declined today. She may utilize this brace for comfort and support as needed with increased activities while working with physical therapy. She may increase her mobility and ambulation with PT and OT. 2. Patient will also continue to be seen and examined by medicine for her other medical diagnoses.
[2024-11-09 10:03] LABS: Basophils # (A) 0.09 X 10*3/uL (0.00-0.10); Basophils % (A) 1.1 %; Eosinophils % (A) 3.6 %; HCT 30.6 % (37.2-46.3); HGB 9.9 g/dL (12.0-15.0); Lymphocytes # (A) 2.44 X 10*3/uL (0.90-5.00); Lymphocytes % (A) 29.1 %; MCH 29.2 pg (27.0-32.0); MCHC 32.4 g/dL (32.0-37.0); MCV 90.3 FL (80.0-97.0); Mean Platelet Volume 10.6 FL (9.5-12.2); Monocytes # (A) 0.91 X 10*3/uL (0.20-1.00); Monocytes % (A) 10.9 %; NRBC Per 100 WBC 0 X 10*3/uL (0.00-0.01); Neutrophils # (A) 4.62 X 10*3/uL (1.80-7.70); Neutrophils % (A) 55.1 %; Platelet Count 420 X 10*3/uL (140-440); RBC 3.39 X 10*6/uL (4.10-5.20); RDW 15.1 % (11.5-14.5); WBC 8.38 X 10*3/uL (4.50-10.00)
[2024-11-09 10:31] LABS: African American GFR (CKD) >90 (>60 ml/min/1.73 sqM); Non-African American GFR(CKD) >90 (>60 ml/min/1.73 sqM)
[2024-11-09] MEDS: VANCOMYCIN TROUGH DUE 1 EACH MISC MISCELLANE ONE (11:05)
[2024-11-09 11:20] LABS: Glucose,Whole Blood 117 mg/dL (70-110)
[2024-11-09 16:25] LABS: Glucose,Whole Blood 141 mg/dL (70-110)
--- NOTE | 2024-11-09 16:42 | P.PN ---
Subjective Progress Note Date: 11/10/24 59 years old female who presents because of severe back pain Patient currently lying in bed looks not in distress stating that her pain in her lower back is 0/10 if she is at rest but gets more than that up to 10 if she moves. She reports pain in both legs more in the right leg than left leg although she says she has little weak and numb but her not many problems and she can move both upper and lower extremities with no weakness. Strength looks 5/5 in both lower extremities. Sensation looks intact. She denies any chest pain or dyspnea or other GI/ symptoms. Patient evaluated by orthopedic team and recommended MRI of the lumbar spine which is pending No need for antibiotics as per ID team as patient does not look septic pending further evaluation and MRI. She is hemodynamically stable and afebrile WBC is 11.2. Hemoglobin 10.1. Platelet count slightly elevated well BMP is unremarkable. Glucose 129. Liver enzymes not elevated. EKG showing sinus rhythm at [address]-T changes CT of the lumbar spine was reviewed and is as above. 11/08/2024 patient presented to hospital with excruciating pain to the lower back rating down to the leg and this patient did have a history of chronic back pain and has received multiple injection to the spine last 1 about a month ago now with abnormal CT suspicious for discitis/osteomyelitis patient however not running any fever did have a normal white count and does not look toxic -patient MRI has been suggestive of L4-5 discitis/osteomyelitis IR has been consulted for sampling of the area for microbiological diagnosis as orthopedic is not recommending any surgical intervention at this point I did discuss in detailed with surgeon and [facility] for admitting team once the sampling is done we will start the patient on cefepime and vancomycin pending culture finalization 11/09/2024 Patient is seen and evaluated on bedside; continues to report severe back and left hip pain; patient is status post attempted CT-guided intra discal aspiration Vital signs are reviewed and remained stable; aspirate Gram stain and culture is negative to date Patient with discitis at L4-5 with reaction within the vertebral bodies; orthopedic surgery on board and recommending to continue with conservative treatment. She will continue with IV antibiotics per infectious disease; if she is not having any improvement over the next several days consider the possibility of surgical decompression and irrigation and debridement. --LSO brace was ordered, this morning the brace is in the room, and patient was asked if they would like to have the brace fitted and they declined today. She may utilize this brace for comfort and support as needed with increased activities while working with physical therapy. She may increase her mobility and ambulation with PT and OT. Objective - Vital Signs Vital signs: Vital Signs Temp 98.2 F 11/09/24 07:16 Pulse 87 11/09/24 07:16 Resp 18 11/09/24 07:16 BP 190/83 11/09/24 07:16 Pulse Ox 98 11/09/24 07:16 FiO2 Intake & Output 11/08/24 11/09/24 11/09/24 18:59 06:59 18:59 Output Total 950 600 Balance -950 -600 Output: Urine 950 600 Other: Voiding Method External Catheter External Catheter External Catheter - Exam GENERAL: Patient is well-developed and well-nourished. Patient is nontoxic and well- hydrated and is in moderate distress. ENT:Neck is soft and supple. No significant lymphadenopathy is noted. Oropharynx is clear. Moist mucous membranes. Neck has full range of motion without eliciting any pain. EYES:The sclera were anicteric and conjunctiva were pink and moist. Extraocular movements were intact and pupils were equal round and reactive to light. Eyelids were unremarkable. PULMONARY:Unlabored respirations. Good breath sounds bilaterally. No audible rales rhonchi or wheezing was noted. CARDIOVASCULAR:There is a regular rate and rhythm without any murmurs gallops or rubs. ABDOMEN:Soft and nontender with normal bowel sounds. SKIN:Skin is clear with no lesions or rashes and otherwise unremarkable. NEUROLOGIC:Patient is alert and oriented x3. Cranial nerves II through XII are grossly intact. Patient is able to move the legs however it causes her excruciating pain in the back and down the posterior aspect of her legs. Normal speech, volume and content. Symmetrical smile. Patient straight leg test is positive at 15 degrees bilaterally. Perineum exam is normal sensation MUSCULOSKELETAL:Unable to assess leg range of motion fully because it causes her too much pain. LYMPHATICS:No significant lymphadenopathy is noted PSYCHIATRIC:Normal psychiatric evaluation. - Labs CBC & Chem 7: 11/09/24 03:44 11/09/24 10:06 Labs: Abnormal Lab Results - Last 24 Hours (Table) 11/07/24 11/08/24 11/08/24 Range/Units 17:01 11:31 16:33 RBC (4.10-5.20) X 10*6/uL Hgb (12.0-15.0) g/dL Hct (37.2-46.3) % RDW (11.5-14.5) % BUN/Creatinine Ratio (12.00-20.00) Ratio Glucose (70-110) mg/dL POC Glucose (mg/dL) 132 H 140 H (70-110) mg/dL Fluid Appearance Blood Tinged A (Clear) 11/08/24 11/09/24 11/09/24 Range/Units 20:00 03:44 03:44 RBC 3.39 L (4.10-5.20) X 10*6/uL Hgb 9.9 L (12.0-15.0) g/dL Hct 30.6 L (37.2-46.3) % RDW 15.1 H (11.5-14.5) % BUN/Creatinine Ratio 28.75 H (12.00-20.00) Ratio Glucose 157 H (70-110) mg/dL POC Glucose (mg/dL) 147 H (70-110) mg/dL Fluid Appearance (Clear) 11/09/24 Range/Units 05:59 RBC (4.10-5.20) X 10*6/uL Hgb (12.0-15.0) g/dL Hct (37.2-46.3) % RDW (11.5-14.5) % BUN/Creatinine Ratio (12.00-20.00) Ratio Glucose (70-110) mg/dL POC Glucose (mg/dL) 120 H (70-110) mg/dL Fluid Appearance (Clear) Microbiology - Last 24 Hours (Table) 11/05/24 15:05 Blood Culture - Preliminary Blood 11/07/24 17:01 Gram Stain - Preliminary Aspirate Body Fluid Culture - Preliminary Assessment and Plan Assessment: Severe back pain with radiculopathy at possible gait dysfunction related to pain Severe spinal stenosis Moderate to severe degenerative disc disease of L5-S1 Hypertension Hyperlipidemia Diabetes mellitus Plan: Continue with pain management Orthopedic team on the case recommended MRI of the spine which is pending No need for antibiotics as per ID team pending further workup and imaging Continue with pain management Further recommendation based on the clinical course GI prophylaxis: Ppi DVT prophylaxis mechanical, subcutaneous heparin Prognosis is guarded
[2024-11-09 20:04] LABS: Glucose,Whole Blood 183 mg/dL (70-110)
--- NOTE | 2024-11-09 23:16 | P.PN ---
Subjective Progress Note Date: 11/08/24 Principal diagnosis: Reason for follow-up is L4-5 discitis/osteomyelitis Patient is a 59-year-old female with a past medical history significant for diabetes mellitus reflux hypertension hyperlipidemia presenting to the hospital for evaluation of worsening back pain patient did have a history of chronic back pain for which she did follow-up with and patient has multiple injection to the spine patient did have a CT of the lumbar spine suggestive of discitis osteomyelitis of the L4-5 level prompted this consultation. On today's evaluation that is 11/08/2024, patient did not have any fever and patient is breathing comfortably on room air, patient seem to be more comfortable and sleepy today normally diarrhea and his changes reported by the nursing staff. No new lab has been obtained today cultures are currently pending Objective - Vital Signs Vital signs: Vital Signs Temp 98.6 F 11/08/24 07:17 Pulse 89 11/08/24 07:17 Resp 17 11/08/24 07:17 BP 164/66 11/08/24 07:17 Pulse Ox 95 11/08/24 07:17 FiO2 Intake & Output 11/07/24 11/08/24 11/08/24 18:59 06:59 18:59 Output Total 400 325 Balance -400 -325 Output: Urine 400 325 Other: Voiding Method External Catheter External Catheter External Catheter # Voids 1 - Exam GENERAL DESCRIPTION: Middle-age female lying in bed in no distress RESPIRATORY SYSTEM: Unlabored breathing , decreased breath sounds at bases HEART: S1 S2 regular rate and rhythm , ABDOMEN: Soft , no tenderness EXTREMITIES: No edema feet - Labs CBC & Chem 7: 11/09/24 03:44 11/09/24 10:06 Labs: Abnormal Lab Results - Last 24 Hours (Table) 11/07/24 11/07/24 11/07/24 Range/Units 17:01 17:18 20:25 POC Glucose (mg/dL) 125 H 151 H (70-110) mg/dL Fluid Appearance Blood Tinged A (Clear) 11/08/24 11/08/24 Range/Units 06:03 11:31 POC Glucose (mg/dL) 131 H 132 H (70-110) mg/dL Fluid Appearance (Clear) Microbiology - Last 24 Hours (Table) 11/05/24 15:05 Blood Culture - Preliminary Blood Assessment and Plan (1) Discitis Current Visit: Yes Status: Acute Code(s): M46.40 - DISCITIS, UNSPECIFIED, SI TE UNSPECIFIED SNOMED Code(s): 8601535 (2) Osteomyelitis Current Visit: Yes Status: Acute Code(s): M86.9 - OSTEOMYELITIS, UNSPECIFIED SNOMED Code(s): 53698558 Plan: 1patient presented to hospital with excruciating pain to the lower back rating down to the leg and this patient did have a history of chronic back pain and has received multiple injection to the spine last 1 about a month ago now with abnormal CT suspicious for discitis/osteomyelitis patient however not running any fever did have a normal white count and does not look toxic 2-patient MRI has been suggestive of L4-5 discitis/osteomyelitis IR has been consulted for sampling of the area for microbiological diagnosis as orthopedic is not recommending any surgical intervention at this point, the patient status post IR aspiration of the area and cultures are pending 3patient is empirically treated with vancomycin and cefepime pending culture finalization Dictation was produced using [employer] dictation software. please excuse any grammatical, word or spelling errors. Time with Patient: Less than 30
--- NOTE | 2024-11-09 23:17 | P.PN ---
Subjective Progress Note Date: 11/09/24 Principal diagnosis: Reason for follow-up is L4-5 discitis/osteomyelitis Patient is a 59-year-old female with a past medical history significant for diabetes mellitus reflux hypertension hyperlipidemia presenting to the hospital for evaluation of worsening back pain patient did have a history of chronic back pain for which she did follow-up with and patient has multiple injection to the spine patient did have a CT of the lumbar spine suggestive of discitis osteomyelitis of the L4-5 level prompted this consultation. On today's evaluation that is 11/09/2024, Patient is afebrile patient is currently on room air and denies having any shortness of breath, the patient denies any chest pain or cough, the patient denies any nausea vomiting still complaining of significant pain to the back and lower extremity. Patient white count normalized to 8.38 creatinine 0.70 cultures are currently pending Objective - Vital Signs Vital signs: Vital Signs Temp 97.8 F 11/09/24 14:00 Pulse 93 11/09/24 14:00 Resp 18 11/09/24 14:00 BP 147/74 11/09/24 14:00 Pulse Ox 97 11/09/24 14:00 FiO2 Intake & Output 11/09/24 11/09/24 11/10/24 06:59 18:59 06:59 Output Total 600 1300 Balance -600 -1300 Output: Urine 600 1300 Other: Voiding Method External Catheter External Catheter - Exam GENERAL DESCRIPTION: Middle-age female lying in bed in no distress RESPIRATORY SYSTEM: Unlabored breathing , decreased breath sounds at bases HEART: S1 S2 regular rate and rhythm , ABDOMEN: Soft , no tenderness EXTREMITIES: No edema feet - Labs CBC & Chem 7: 11/09/24 03:44 11/09/24 10:06 Labs: Abnormal Lab Results - Last 24 Hours (Table) 11/09/24 11/09/24 11/09/24 Range/Units 03:44 03:44 05:59 RBC 3.39 L (4.10-5.20) X 10*6/uL Hgb 9.9 L (12.0-15.0) g/dL Hct 30.6 L (37.2-46.3) % RDW 15.1 H (11.5-14.5) % BUN/Creatinine Ratio 28.75 H (12.00-20.00) Ratio Glucose 157 H (70-110) mg/dL POC Glucose (mg/dL) 120 H (70-110) mg/dL 11/09/24 11/09/24 11/09/24 Range/Units 11:18 16:23 20:03 RBC (4.10-5.20) X 10*6/uL Hgb (12.0-15.0) g/dL Hct (37.2-46.3) % RDW (11.5-14.5) % BUN/Creatinine Ratio (12.00-20.00) Ratio Glucose (70-110) mg/dL POC Glucose (mg/dL) 117 H 141 H 183 H (70-110) mg/dL Microbiology - Last 24 Hours (Table) 11/07/24 17:01 Gram Stain - Preliminary Aspirate Body Fluid Culture - Preliminary 11/05/24 15:05 Blood Culture - Preliminary Blood Assessment and Plan (1) Discitis Current Visit: Yes Status: Acute Code(s): M46.40 - DISCITIS, UNSPECIFIED, SITE UNSPECIFIED SNOMED Code(s): 7521919 (2) Osteomyelitis Current Visit: Yes Status: Acute Code(s): M86.9 - OSTEOMYELITIS, UNSPECIFIED SNOMED Code(s): 68935820 Plan: 1patient presented to hospital with excruciating pain to the lower back rating down to the leg and this patient did have a history of chronic back pain and has received multiple injection to the spine last 1 about a month ago now with abnormal CT suspicious for discitis/osteomyelitis patient however not running any fever did have a normal white count and does not look toxic 2-patient MRI has been suggestive of L4-5 discitis/osteomyelitis IR has been consulted for sampling of the area for microbiological diagnosis as orthopedic is not recommending any surgical intervention at this point, the patient status post IR aspiration of the area and cultures are pending 3patient to continue with vancomycin and cefepime pending culture finalization to determine discharge antibiotics Dictation was produced using [employer] dictation software. please excuse any grammatical, word or spelling errors. Time with Patient: Less than 30
[2024-11-10 06:22] LABS: Glucose,Whole Blood 120 mg/dL (70-110)
[2024-11-10 08:49] LABS: BUN/Creat Ratio 31.67 Ratio (12.00-20.00); Basophils # (A) 0.11 X 10*3/uL (0.00-0.10); Basophils % (A) 1.2 %; Calcium 9.9 mg/dL (8.7-10.3); Carbon Dioxide 23.1 mmol/L (21.6-31.8); Chloride 104 mmol/L (96-109); Eosinophils # (A) 0.57 X 10*3/uL (0.04-0.35); Glucose 116 mg/dL (70-110); HCT 34.5 % (37.2-46.3); Lymphocytes # (A) 3.17 X 10*3/uL (0.90-5.00); Lymphocytes % (A) 33.4 %; MCH 28.9 pg (27.0-32.0); MCHC 31.9 g/dL (32.0-37.0); MCV 90.6 FL (80.0-97.0); Mean Platelet Volume 11.2 FL (9.5-12.2); Monocytes # (A) 0.91 X 10*3/uL (0.20-1.00); Monocytes % (A) 9.6 %; NRBC Per 100 WBC 0 X 10*3/uL (0.00-0.01); Neutrophils # (A) 4.66 X 10*3/uL (1.80-7.70); Neutrophils % (A) 49.2 %; Platelet Count 423 X 10*3/uL (140-440); Potassium 4.3 mmol/L (3.5-5.5); RBC 3.81 X 10*6/uL (4.10-5.20); RDW 14.8 % (11.5-14.5); Sodium 137 mmol/L (135-145); WBC 9.48 X 10*3/uL (4.50-10.00)
[2024-11-10 11:54] LABS: Glucose,Whole Blood 184 mg/dL (70-110)
--- NOTE | 2024-11-10 12:18 | P.PN ---
Progress Note - Text Progress Note Date: 11/10/24 Orthopedic spine: History of present illness: Patient is a very pleasant 59-year-old female who is seen examined at the bedside for follow-up evaluation for her lumbar spine. She has discitis at L4- 5. She had presented with severe low back pain. Over the weekend she states her low back pain has significantly improved. She is not currently experiencing any significant low back pain. She is utilizing LSO bracing for comfort and support as needed. She does continue to experience chronic pain in her lower extremities which she states is currently her most significant symptom. She has had some pain over the anterior thighs and posterior thighs. Currently her posterior thigh pain is her most significant pain. She states they may be planning for discharge to [facility] today. She is being seen by medicine and infectious disease. Patient has follow-up with Dr. Buitrago for pain management in outpatient setting. She does not wish to follow at that practice any further. She would like referral for pain management here at [facility]. We did discuss given her current discitis they would not currently plan to proceed forward with injections, however, we will consult pain management to determine a plan of care proceeding forward. Physical exam: Patient is awake, alert, and oriented 3 Vital signs stable Good chest excursion with deep inspiration and expiration No significant pain with palpation in her lumbar spine LSO brace currently intact Dorsiflexion, plantarflexion, and extensor hallucis longus positive sustained bilaterally Lower extremity strength 5/5 bilaterally Straight leg test negative bilateral lower extremities No signs or symptoms of DVT; no calf pain No pain with internal and external rotation of the hips bilaterally Neurovascularly intact Pertinent studies: MRI of the lumbar spine taken on 11/06/2024: L4-5 discitis with reaction within the vertebral bodies of L4 and 5; L4-5 severe spinal stenosis; L3-4 spinal stenosis; no obvious evidence of abscess or epidural phlegmon. CT of the lumbar spine taken on 11/05/2024: L4-5 severe degenerative disc disease with some sclerotic margins and bony erosion around the disc space presumptive for discitis per report; L4-5 and L5-S1 significant degenerative spondylosis Assessment: Acute on chronic low back pain; significantly improved over the weekend L4-5 discitis L4-5 severe spinal stenosis L3-4 spinal stenosis Bilateral lower extremity radiculopathy, chronic, without neurologic loss L4-5 and L5-S1 degenerative spondylosis History of injection with pain management with last injection approximate 1 month ago Diabetes mellitus Hypertension Hyperlipidemia Plan: 1. Patient has evidence of discitis at L4-5 with reaction within the vertebral bodies. She has chronic low back pain with chronic lower extremity radiculopathy. Her low back pain has significantly improved over the weekend. She currently denies any significant low back pain. She is utilizing LSO bracing for comfort and support as needed. She does continue to have some chronic lower extremity radiculopathy over the anterior thighs and posterior thighs. Patient has follow-up with Dr. Buitrago for pain management in outpatient setting. She does not wish to follow at that practice any further. She would like referral for pain management here at [facility]. We did discuss given her current discitis they would not currently plan to proceed forward with injections, however, we will consult pain management to determine a plan of care proceeding forward. Currently, we will plan to have her continue with conservative treatment. She will continue with IV antibiotics per Dr. Mueller in infectious disease. We discussed her discitis as well as her spinal stenosis in significant detail. She has had improvement over the weekend for her low back pain. Currently, she would be cleared for discharge from an orthopedic spine standpoint. We would plan to have her follow-up in the outpatient setting in approximately 2 to 3 weeks for further evaluation. We did discuss if she were to fail conservative treatment in the future, she is a candidate for surgical intervention at her lumbar spine with decompression and fusion. Patient may follow-up with Joe Fang PA-C or Dr. Charanjit Hudson at [facility] in 2-3 weeks following discharge. If cleared for discharge to [facility] today, patient is cleared from an orthopedic spine standpoint. 2. Patient will also continue to be seen and examined by medicine for her other medical diagnoses.
--- NOTE | 2024-11-10 13:48 | P.PAINPG ---
Objective - Vital Signs Vital signs: Vital Signs Temp 98.2 F 11/10/24 06:46 Pulse 79 11/10/24 07:45 Resp 17 11/10/24 07:45 BP 185/95 11/10/24 06:46 Pulse Ox 97 11/10/24 06:46 FiO2 Intake & Output 11/09/24 11/10/24 11/10/24 18:59 06:59 18:59 Intake Total 750 Output Total 1300 Balance -1300 750 Intake: Oral 750 Output: Urine 1300 Other: Voiding Method External Catheter External Catheter External Catheter - Labs CBC & Chem 7: 11/10/24 02:50 11/10/24 02:50 Labs: Abnormal Lab Results - Last 24 Hours (Table) 11/09/24 11/09/24 11/10/24 Range/Units 16:23 20:03 02:50 RBC 3.81 L (4.10-5.20) X 10*6/uL Hgb 11.0 L (12.0-15.0) g/dL Hct 34.5 L (37.2-46.3) % MCHC 31.9 L (32.0-37.0) g/dL RDW 14.8 H (11.5-14.5) % Immature Gran # 0.06 H (0.00-0.04) X 10*3/uL Eosinophils # 0.57 H (0.04-0.35) X 10*3/uL Basophils # 0.11 H (0.00-0.10) X 10*3/uL BUN/Creatinine Ratio (12.00-20.00) Ratio Glucose (70-110) mg/dL POC Glucose (mg/dL) 141 H 183 H (70-110) mg/dL 11/10/24 11/10/24 11/10/24 Range/Units 02:50 06:20 11:53 RBC (4.10-5.20) X 10*6/uL Hgb (12.0-15.0) g/dL Hct (37.2-46.3) % MCHC (32.0-37.0) g/dL RDW (11.5-14.5) % Immature Gran # (0.00-0.04) X 10*3/uL Eosinophils # (0.04-0.35) X 10*3/uL Basophils # (0.00-0.10) X 10*3/uL BUN/Creatinine Ratio 31.67 H (12.00-20.00) Ratio Glucose 116 H (70-110) mg/dL POC Glucose (mg/dL) 120 H 184 H (70-110) mg/dL Microbiology - Last 24 Hours (Table) 11/07/24 17:01 Anaerobic Culture - Preliminary Aspirate 11/07/24 17:01 Gram Stain - Preliminary Aspirate Body Fluid Culture - Preliminary PQRS Measure Charge Sheet Comment: HISTORY OF PRESENT ILLNESS: A 58 yr old inpatient female as a referral from [facility] presents today w severe and chronic LBP > 3 mo secondary to radiculopathy, spondylosis and facet arthropathy without myelopathy for evaluation. Pt states pain level is provoked at 10 /10 in intensity, constant, localized in the lumbar spine, predominantly axial, sharp in character w occasional shooting pain towards the BL thighs. Pain is provoked by over activity. Pain is alleviated by medications (Dilaudid 0.5mg q2h prn, [place] 5/325mg q6h prn, Toradol 15mg/mL q6h IVP prn, Neurontin 600mg BID & 900mg PO HS), manual massage, repositioning and rest . PMH: OA, Hyperlipidemia, HTN, MDD/ Anxiety PSH: Colonoscopy (2019), EGD (2020), SH: Never smoker, Occasional ETOH use, No illicit drug use FH: Non contributory All: See list Meds: See list REVIEW OF ORGAN SYSTEMS: CONSTITUTIONAL: No fevers or chills. No recent weight loss. NEUROLOGICAL: + numbness and tingling along the distal extremities. No seizure disorders or headaches. MUSCULOSKELETAL: + pain PSYCHIATRIC: Denies current depression or suicidal thoughts. Physical Examinations : Constitutional : Cooperative , not in acute distress . Neurologic : Cranial nerve II to XII intact. No focal neurological deficits. Psychiatric : alert & oriented x 3. Matching mood & appropriate affect. Judgment & insight intact. Musculoskeletal : Cervical Spine Motor strength in the deltoid and biceps: Normal right side. Normal Left side Motor strength biceps and the wrist extensors: Normal right side . Normal left side Motor strength in the triceps muscle: Normal right side. Normal left side Deep tendon reflexes: Normal at the biceps. Normal at Brachioradialis. Normal at triceps Vertebral body tenderness to deep palpation over Cervical facet loading test: positive bilaterally Spurling test: positive bilaterally Neck distraction test: positive bilaterally Yael sign: positive bilaterally Lumbar spine Motor strength lower extremities ,thigh and legs 5/5 Right side , 5/5 Left side Deep tendon reflexes : Normal Knee Jerk. Normal Ankle Jerk Vertebral body tenderness over L3 Schwartz Test positive BL L3-L4 Lumbar facet Loading Test: positive Right / positive Left Range of motion of the lumbar spine Flexion 30 degrees, extension 10 degrees Straight Leg Raise test: Left/ Right positive at degrees Kalee test: positive right / positive left. Severe tenderness over the Sacroiliac joint on the Right / Left sides Gaenslen test: positive bilaterally Seated flexion test: positive bilaterally. Sacral spine : Severe tenderness over the Sacroiliac joint: right side / left side Range of motion: Flexion of the lumbar spine <60 degrees Range of motion: Extension of the lumbar spine <20 degrees Gaenslen's Test positive Kalee test: positive right side / left side Thigh Thrust Test Sacral Thrust Test Imaging: X ray lumbar spine from 03/19/24 reviewed MRI non contrast lumbar spine from 11/06/[address] non contrast lumbar spine from 11/05/24 reviewed Assessment/ Plan : L4-L5 discitis w severe spinal stenosis, L3-L4 stenosis w radiculopathy Recommendation of EMILY L3-L4 #1 and medication management. Risks, benefits of procedure discussed and patient verbalized understanding. Protocol for discontinuation/ continuation of medications julio procedure discussed. [place] 10/325mg #18. Use, side effects, adverse reactions, safe storage discussed. All questions answered. I have spent greater than 30 minutes on patient care today. Dr Camara was available by phone for the evaluation of this patient. The time was used to review the medical records including relevant urine studies and Prescription history (MAPs), review of the available imaging, evaluation and examination of the patient, coordination of care with the medical staff and if applicable referring physicians, as well as creation of the medical record - Pain Location Back Non-Pharmacological Interventions: Darkened Room, Reduce Environmental Stimuli Pharmacological Interventions: PRN Medication Bilateral Lower Leg Non-Pharmacological Interventions: Darkened Room, Environmental Control, Reduce Environmental Stimuli Pharmacological Interventions: PRN Medication, Scheduled Medication PQRS Narrative: Smoking Status Never smoker Blood Pressure [Right Arm] 185/95 Blood Pressure [Left Arm] 132/71 Blood Pressure [Supine] 183/71 Blood Pressure 198/80 Pain Intensity [Bilateral 10 Lower Leg] Pain Intensity [Back] 7 Pain Intensity [None] 8 Pain Intensity 10 Pain Scale Used Numeric (1 - 10) Scale Used Numeric (1 - 10) Hx Alcohol Use (MH) No Home Medications: Ambulatory Orders Pantoprazole [Protonix] 40 mg PO DAILY 04/03/24 busPIRone HCl [Buspar] 10 mg PO BID 04/03/24 hydrOXYzine HCL [Atarax] 50 mg PO DAILY 04/03/24 metFORMIN HCL [Glucophage] 500 mg PO DAILY 04/03/24 [id number] 1000mcg 1 cap PO DAILY 11/05/24 Alpha Lipoic Acid 600 mg PO DAILY 11/05/24 Atorvastatin [Lipitor] 40 mg PO DAILY 11/05/24 Cariprazine HCl [Vraylar] 4.5 mg PO DAILY 11/05/24 Gabapentin 900 mg PO HS 11/05/24 Gabapentin [Neurontin] 600 mg PO BID-W/MEALS 11/05/24 Rhea Root 550mg 550 mg PO DAILY 11/05/24 Latanoprost [Latanoprost 0.005%] 1 drop BOTH EYES DAILY 11/05/24 Losartan/Hydrochlorothiazide [Hyzaar 100-25 Tablet] 1 tab PO DAILY 11/05/24 Vortioxetine Hydrobromide [Trintellix] 20 mg PO DAILY 11/05/24 icosapent ethyL [Icosapent Ethyl] 1 gm PO QID 11/05/24 ondansetron HCL [Zofran] 8 mg PO BID 11/05/24 traMADol HCL 100 mg PO TID PRN 11/05/24 Controlled Substance Measures - Controlled Substance Measures Is patient prescribed a controlled substance at discharge?: Yes When asked, does pt state using other controlled substances?: No If prescribed controlled substance>3 days was MAPS reviewed?: Prescribed <3 Days
[2024-11-10 16:56] LABS: Glucose,Whole Blood 187 mg/dL (70-110)
[2024-11-10 20:59] LABS: Glucose,Whole Blood 219 mg/dL (70-110)
--- NOTE | 2024-11-10 21:28 | P.PN ---
Subjective Progress Note Date: 11/10/24 Principal diagnosis: Reason for follow-up is L4-5 discitis/osteomyelitis Patient is a 59-year-old female with a past medical history significant for diabetes mellitus reflux hypertension hyperlipidemia presenting to the hospital for evaluation of worsening back pain patient did have a history of chronic back pain for which she did follow-up with and patient has multiple injection to the spine patient did have a CT of the lumbar spine suggestive of discitis osteomyelitis of the L4-5 level prompted this consultation. On today's evaluation that is 11/10/2024, patient has been afebrile, patient is breathing comfortably and is currently on room air, patient denies having any chest pain and cough, patient denies nausea vomiting or diarrhea and no abdomin al pain still complain of significant pain to the lower extremity but no weakness. Cultures currently pending white count is 9.48 creatinine 0.6 Objective - Vital Signs Vital signs: Vital Signs Temp 98.2 F 11/10/24 06:46 Pulse 79 11/10/24 07:45 Resp 17 11/10/24 07:45 BP 185/95 11/10/24 06:46 Pulse Ox 97 11/10/24 06:46 FiO2 Intake & Output 11/09/24 11/10/24 11/10/24 18:59 06:59 18:59 Intake Total 750 Output Total 1300 Balance -1300 750 Intake: Oral 750 Output: Urine 1300 Other: Voiding Method External Catheter External Catheter External Catheter - Exam GENERAL DESCRIPTION: Middle-age female lying in bed in no distress RESPIRATORY SYSTEM: Unlabored breathing , decreased breath sounds at bases HEART: S1 S2 regular rate and rhythm , ABDOMEN: Soft , no tenderness EXTREMITIES: No edema feet - Labs CBC & Chem 7: 11/10/24 02:50 11/10/24 02:50 Labs: Abnormal Lab Results - Last 24 Hours (Table) 11/09/24 11/09/24 11/09/24 Range/Units 11:18 16:23 20:03 RBC (4.10-5.20) X 10*6/uL Hgb (12.0-15.0) g/dL Hct (37.2-46.3) % MCHC (32.0-37.0) g/dL RDW (11.5-14.5) % Immature Gran # (0.00-0.04) X 10*3/uL Eosinophils # (0.04-0.35) X 10*3/uL Basophils # (0.00-0.10) X 10*3/uL BUN/Creatinine Ratio (12.00-20.00) Ratio Glucose (70-110) mg/dL POC Glucose (mg/dL) 117 H 141 H 183 H (70-110) mg/dL 11/10/24 11/10/24 11/10/24 Range/Units 02:50 02:50 06:20 RBC 3.81 L (4.10-5.20) X 10*6/uL Hgb 11.0 L (12.0-15.0) g/dL Hct 34.5 L (37.2-46.3) % MCHC 31.9 L (32.0-37.0) g/dL RDW 14.8 H (11.5-14.5) % Immature Gran # 0.06 H (0.00-0.04) X 10*3/uL Eosinophils # 0.57 H (0.04-0.35) X 10*3/uL Basophils # 0.11 H (0.00-0.10) X 10*3/uL BUN/Creatinine Ratio 31.67 H (12.00-20.00) Ratio Glucose 116 H (70-110) mg/dL POC Glucose (mg/dL) 120 H (70-110) mg/dL Microbiology - Last 24 Hours (Table) 11/07/24 17:01 Anaerobic Culture - Preliminary Aspirate 11/07/24 17:01 Gram Stain - Preliminary Aspirate Body Fluid Culture - Preliminary Assessment and Plan (1) Discitis Current Visit: Yes Status: Acute Code(s): M46.40 - DISCITIS, UNSPECIFIED, SITE UNSPECIFIED SNOMED Code(s): 0838230 (2) Osteomyelitis Current Visit: Yes Status: Acute Code(s): M86.9 - OSTEOMYELITIS, UNSPECIFIED SNOMED Code(s): 03674913 Plan: 1patient presented to hospital with excruciating pain to the lower back rating down to the leg and this patient did have a history of chronic back pain and has received multiple injection to the spine last 1 about a month ago now with abnormal CT suspicious for discitis/osteomyelitis patient however not running any fever did have a normal white count and does not look toxic 2-patient MRI has been suggestive of L4-5 discitis/osteomyelitis IR has been consulted for sampling of the area for microbiological diagnosis as orthopedic is not recommending any surgical intervention at this point, the patient status post IR aspiration of the area and cultures are pending 3patient remains to be afebrile white count has been normal cultures are still pending we will treat with vancomycin and cefepime pending culture finalization to determine discharge antibiotics Dictation was produced using [employer] dictation software. please excuse any grammatical, word or spelling errors. Time with Patient: Less than 30
--- NOTE | 2024-11-10 21:45 | P.PN ---
Subjective Progress Note Date: 11/10/24 59 years old female who presents because of severe back pain Patient currently lying in bed looks not in distress stating that her pain in her lower back is 0/10 if she is at rest but gets more than that up to 10 if she moves. She reports pain in both legs more in the right leg than left leg although she says she has little weak and numb but her not many problems and she can move both upper and lower extremities with no weakness. Strength looks 5/5 in both lower extremities. Sensation looks intact. She denies any chest pain or dyspnea or other GI/ symptoms. Patient evaluated by orthopedic team and recommended MRI of the lumbar spine which is pending No need for antibiotics as per ID team as patient does not look septic pending further evaluation and MRI. She is hemodynamically stable and afebrile WBC is 11.2. Hemoglobin 10.1. Platelet count slightly elevated well BMP is unremarkable. Glucose 129. Liver enzymes not elevated. EKG showing sinus rhythm at [address]-T changes CT of the lumbar spine was reviewed and is as above. 11/08/2024 patient presented to hospital with excruciating pain to the lower back rating down to the leg and this patient did have a history of chronic back pain and has received multiple injection to the spine last 1 about a month ago now with abnormal CT suspicious for discitis/osteomyelitis patient however not running any fever did have a normal white count and does not look toxic -patient MRI has been suggestive of L4-5 discitis/osteomyelitis IR has been consulted for sampling of the area for microbiological diagnosis as orthopedic is not recommending any surgical intervention at this point I did discuss in detailed with surgeon and MANAGER VISUAL for admitting team once the sampling is done we will start the patient on cefepime and vancomycin pending culture finalization 11/09/2024 Patient is seen and evaluated on bedside; continues to report severe back and left hip pain; patient is status post attempted CT-guided intra discal aspiration Vital signs are reviewed and remained stable; aspirate Gram stain and culture is negative to date Patient with discitis at L4-5 with reaction within the vertebral bodies; orthopedic surgery on board and recommending to continue with conservative treatment. She will continue with IV antibiotics per infectious disease; if she is not having any improvement over the next several days consider the possibility of surgical decompression and irrigation and debridement. --LSO brace was ordered, this morning the brace is in the room, and patient was asked if they would like to have the brace fitted and they declined today. She may utilize this brace for comfort and support as needed with increased activities while working with physical therapy. She may increase her mobility and ambulation with PT and OT. 11/10/2024 Patient is seen in follow-up with multiple consultations following including orthopedics and infectious disease. Pain management has been consulted this patient follows with neurology outpatient although does not want to continue going there. Patient has LSO brace and has been up and working with physical therapy with plans on going to [facility] on discharge. Currently awaiting finalized cultures to determine appropriate discharge antibiotics. Patient continues with severe back pain and pain management planning on possible epidural injection and to continue holding anticoagulation along with Toradol for now until injection tomorrow. Cultures will likely be finalized later this evening and will discuss further with infectious disease regarding discharge planning. Will discuss further with case management once cultures have been finalized to determine appropriate antibiotics and treatment plan along with discharge moving forward. Patient would benefit from PT/OT therapy [facility] along with IV antibiotic therapy. Patient is afebrile and white count has normalized. Review of systems: Constitutional: No reports of fatigue, fever, or chills Cardiovascular: No reports of chest pain or palpitations Respiratory: No reports of shortness of breath or cough GI: No reports of nausea, vomiting, or diarrhea : No reports of dysuria or retention Neurovascular: reports of continued weakness as well as back pain All medications have been reviewed Physical exam: Gen: This is a 59-year-old female who is awake, alert and oriented x 3, well- developed, appears older than stated age, lethargic but easily arousable HEENT: Head is atraumatic, normocephalic. Pupils equal, round. Sclerae is anicteric. NECK: Supple. No JVD. No lymphadenopathy. No thyromegaly. LUNGS: Diminished breath sounds bilaterally otherwise clear to auscultation. No wheezes or rhonchi. No intercostal retractions. HEART: S1, S2 are muffled ABDOMEN: Soft. Thin. Bowel sounds are present. No masses. No tenderness. EXTREMITIES: No pedal edema. No calf tenderness. NEUROLOGICAL: Patient is awake, alert and oriented x3. Cranial nerves 2 through 12 are grossly intact. Diffusely weak Assessment: Severe back pain with radiculopathy gait dysfunction related to pain L4-L5 discitis with osteomyelitis, cultures pending Severe spinal stenosis Moderate to severe degenerative disc disease of L5-S1 Hypertension Hyperlipidemia Diabetes mellitus, uncontrolled with hyper and hypoglycemia GI prophylaxis DVT prophylaxis Full code Plan: Continue with pain management per orthopedics. No plan of surgical intervention at this time Interventional radiology evaluated the patient status post culture and currently pending at this time with infectious disease following will continue current antibiotic regimen and awaiting finalized culture to determine discharge antibiotics Case management following and discussing possibly discharge planning to [facility] as patient will likely require IV antibiotic therapy as well as continued PT/OT therapy Awaiting updated PT/OT therapy note and will continue with LSO brace Cultures may result sometime after 8 PM on 11/10/2024 and will discuss further with case management/infectious disease regarding discharge planning Overall prognosis is guarded The impression and plan of care has been dictated by Samira Jolley, Nurse Practitioner as directed. Dr. Michelle MD I have performed a history and examination and MDM of this patient, discussed the same with the dictator, and agree with the dictator's assessment and plan as written ,documented as a scribe. Based on total visit time, I have performed more than 50% of the visit. Objective - Vital Signs Vital signs: Vital Signs Temp 98.2 F 11/10/24 06:46 Pulse 79 11/10/24 07:45 Resp 17 11/10/24 07:45 BP 185/95 11/10/24 06:46 Pulse Ox 97 11/10/24 06:46 FiO2 Intake & Output 11/09/24 11/10/24 11/10/24 18:59 06:59 18:59 Intake Total 750 Output Total 1300 Balance -1300 750 Intake: Oral 750 Output: Urine 1300 Other: Voiding Method External Catheter External Catheter External Catheter - Labs CBC & Chem 7: 11/10/24 02:50 11/10/24 02:50 Labs: Abnormal Lab Results - Last 24 Hours (Table) 11/09/24 11/09/24 11/09/24 Range/Units 11:18 16:23 20:03 RBC (4.10-5.20) X 10*6/uL Hgb (12.0-15.0) g/dL Hct (37.2-46.3) % MCHC (32.0-37.0) g/dL RDW (11.5-14.5) % Immature Gran # (0.00-0.04) X 10*3/uL Eosinophils # (0.04-0.35) X 10*3/uL Basophils # (0.00-0.10) X 10*3/uL BUN/Creatinine Ratio (12.00-20.00) Ratio Glucose (70-110) mg/dL POC Glucose (mg/dL) 117 H 141 H 183 H (70-110) mg/dL 11/10/24 11/10/24 11/10/24 Range/Units 02:50 02:50 06:20 RBC 3.81 L (4.10-5.20) X 10*6/uL Hgb 11.0 L (12.0-15.0) g/dL Hct 34.5 L (37.2-46.3) % MCHC 31.9 L (32.0-37.0) g/dL RDW 14.8 H (11.5-14.5) % Immature Gran # 0.06 H (0.00-0.04) X 10*3/uL Eosinophils # 0.57 H (0.04-0.35) X 10*3/uL Basophils # 0.11 H (0.00-0.10) X 10*3/uL BUN/Creatinine Ratio 31.67 H (12.00-20.00) Ratio Glucose 116 H (70-110) mg/dL POC Glucose (mg/dL) 120 H (70-110) mg/dL Microbiology - Last 24 Hours (Table) 11/07/24 17:01 Anaerobic Culture - Preliminary Aspirate 11/07/24 17:01 Gram Stain - Preliminary Aspirate Body Fluid Culture - Preliminary
[2024-11-11 06:36] LABS: Glucose,Whole Blood 132 mg/dL (70-110)
--- NOTE | 2024-11-11 08:05 | P.PN ---
Progress Note - Text Progress Note Date: 11/11/24 The patient is seen and examined at bedside. She still complains of severe pain at her back with significant spasms and bilateral lower extremity symptoms. She is not having neurologic loss that her lower extremities but she does not feel she is making any significant progress. She denies fevers or chills. She has been on antibiotics. The initial aspiration from interventional radiology shows rare Staph epidermidis. The patient was seen and evaluated by interventional pain management and they had suggested the possibility of epidural steroid injection.. On exam. The patient is afebrile Her lower extremities have sustained dorsiflexion plantarflexion EHL intact. Thighs and calf soft nontender. No saddle paresthesias. She has significant pain with her back and has frequent spasms where she is somewhat incapacitated with her pain. Her upper extremities have full active and passive range of motion. She has no nuchal rigidity. The MRI is again reviewed Assessment and plan Discitis with osteomyelitis L4-5, acute Severe spinal stenosis L4-5 and L3-4 Severe low back pain without relief despite aggressive conservative care History of recent lumbar epidural steroid injections Low back pain Degenerative disc disease No apparent neurologic loss The patient has been having persistent pain despite treatment here in the hospital over the past several days. She does not seem to be having significant benefit or improvement. I appreciate the note from interventional pain management. In the face of active infection with discitis and osteomyelitis I would not recommend epidural steroid injection of the area. I think that we should cancel any plan for epidural steroid injection. The patient is not making significant benefit and with the severe stenosis and the osteomyelitis I think that she has potential for significant benefit with decompression and discectomy at the area. With the infectious process I would plan on just doing the laminectomy decompression without placement of hardware at this point. I discussed the possibility of surgical intervention and I think that we can plan on proceeding with laminectomy decompression and discectomy tomorrow on Sunday, November 12. I will make her n.p.o. after midnight and obtain appropriate medical clearance I discussed with her the risk complications alternatives and benefits of surgery at length discussed the risk of bleeding risk of infection risk of need for further surgery risk of decrease or loss of motion loss of function nonunion paralysis dural tear of the possibly of heart attack blindness was all explained to her. She is interested in proceeding with surgery and I answered her questions and she will sign her informed consent. Given the infectious process at the area currently I would like to hold off on placement of hardware at the vertebral bodies. We can try to maintain some st ability at the area with a decompression and I discussed the possibly that she may need further surgery with stabilization in the intermediate future. She understands this. We will cancel the epidural steroid injection and plan on surgery tomorrow
[2024-11-11] MEDS: HYDROcodone/APAP 7.5-325MG 1 EACH TAB PO PRN (10:22)
[2024-11-11 11:27] LABS: Glucose,Whole Blood 176 mg/dL (70-110)
[2024-11-11] MEDS: HYDROmorphone 0.5 MG/0.5 ML SYRINGE IVP PRN (13:26)
--- NOTE | 2024-11-11 14:56 | P.PN ---
Subjective Progress Note Date: 11/11/24 Principal diagnosis: Reason for follow-up is L4-5 discitis/osteomyelitis Patient is a 59-year-old female with a past medical history significant for diabetes mellitus reflux hypertension hyperlipidemia presenting to the hospital for evaluation of worsening back pain patient did have a history of chronic back pain for which she did follow-up with and patient has multiple injection to the spine patient did have a CT of the lumbar spine suggestive of discitis osteomyelitis of the L4-5 level prompted this consultation. On today's evaluation that is 11/11/2024, Patient is afebrile this morning patient denies having any chest pain shortness of breath or cough, the patient is currently on room air, patient denies any abdominal pain no diarrhea no nausea no vomiting minimal pain to the lower extremity in the back area but no weakness no bowel or bladder problem. No new lab has been obtained today culture currently showing staph epi Objective - Vital Signs Vital signs: Vital Signs Temp 98.1 F 11/11/24 06:52 Pulse 80 11/11/24 06:52 Resp 17 11/11/24 06:52 BP 185/84 11/11/24 06:52 Pulse Ox 98 11/11/24 06:52 FiO2 Intake & Output 11/10/24 11/11/24 11/11/24 18:59 06:59 18:59 Intake Total 650 1000 Output Total 1100 1300 Balance -450 -300 Intake: Intake, IV Titration 100 Amount Cefepime 2 gm In Dextrose 100 5% in Water 100 ml @ 25 mls/hr IVPB Q8HR [facility] Rx#: [id number] Oral 550 1000 Output: Urine 1100 1300 Other: Voiding Method External Catheter External Catheter - Exam GENERAL DESCRIPTION: Middle-age female lying in bed in no distress RESPIRATORY SYSTEM: Unlabored breathing , decreased breath sounds at bases HEART: S1 S2 regular rate and rhythm , ABDOMEN: Soft , no tenderness EXTREMITIES: No edema feet - Labs CBC & Chem 7: 11/10/24 02:50 11/10/24 02:50 Labs: Abnormal Lab Results - Last 24 Hours (Table) 11/10/24 11/10/24 11/10/24 Range/Units 11:53 16:47 20:58 POC Glucose (mg/dL) 184 H 187 H 219 H (70-110) mg/dL 11/11/24 Range/Units 06:35 POC Glucose (mg/dL) 132 H (70-110) mg/dL Microbiology - Last 24 Hours (Table) 11/07/24 17:01 Anaerobic Culture - Preliminary Aspirate Staphylococcus epidermidis 11/05/24 15:05 Blood Culture - Final Blood 11/07/24 17:01 Gram Stain - Preliminary Aspirate Body Fluid Culture - Preliminary Assessment and Plan (1) Discitis Current Visit: Yes Status: Acute Code(s): M46.40 - DISCITIS, UNSPECIFIED, SITE UNSPECIFIED SNOMED Code(s): 1669227 (2) Osteomyelitis Current Visit: Yes Status: Acute Code(s): M86.9 - OSTEOMYELITIS, UNSPECIFIED SNOMED Code(s): 22252722 Plan: 1patient presented to hospital with excruciating pain to the lower back rating down to the leg and this patient did have a history of chronic back pain and has received multiple injection to the spine last 1 about a month ago now with abnormal CT suspicious for discitis/osteomyelitis patient however not running any fever did have a normal white count and does not look toxic 2-patient MRI has been suggestive of L4-5 discitis/osteomyelitis IR has been consulted for sampling of the area for microbiological diagnosis as orthopedic is not recommending any surgical intervention at this point, the patient status post IR aspiration of the area and cultures are pending 3patient remains to be afebrile white count has been normal cultures are currently growing staph epi scheduled for surgical exploration of the area tomorrow by Ortho hopefully be deep culture for now continue cefepime and vancomycin Dictation was produced using [employer] dictation software. please excuse any grammatical, word or spelling errors. Time with Patient: Less than 30
[2024-11-11 16:26] LABS: Glucose,Whole Blood 272 mg/dL (70-110)
[2024-11-11 20:45] LABS: Glucose,Whole Blood 187 mg/dL (70-110)
[2024-11-11] MEDS: CYCLOBENZAPRINE 5 MG TAB PO PRN (23:20)
[2024-11-12 04:45] LABS: African American GFR (CKD) >90 (>60 ml/min/1.73 sqM); Anion Gap 7 mmol/L; Blood Urea Nitrogen 17 mg/dL (7-17); Calcium 10.1 mg/dL (8.4-10.2); Carbon Dioxide 23 mmol/L (22-30); Chloride 104 mmol/L (98-107); Glucose 120 mg/dL (74-99); Non-African American GFR(CKD) >90 (>60 ml/min/1.73 sqM); Potassium 4.1 mmol/L (3.5-5.1); Sodium 134 mmol/L (137-145)
--- NOTE | 2024-11-12 05:20 | P.PN ---
Subjective Progress Note Date: 11/11/24 59 years old female who presents because of severe back pain Patient currently lying in bed looks not in distress stating that her pain in her lower back is 0/10 if she is at rest but gets more than that up to 10 if she moves. She reports pain in both legs more in the right leg than left leg although she says she has little weak and numb but her not many problems and she can move both upper and lower extremities with no weakness. Strength looks 5/5 in both lower extremities. Sensation looks intact. She denies any chest pain or dyspnea or other GI/ symptoms. Patient evaluated by orthopedic team and recommended MRI of the lumbar spine which is pending No need for antibiotics as per ID team as patient does not look septic pending further evaluation and MRI. She is hemodynamically stable and afebrile WBC is 11.2. Hemoglobin 10.1. Platelet count slightly elevated well BMP is unremarkable. Glucose 129. Liver enzymes not elevated. EKG showing sinus rhythm at [address]-T changes CT of the lumbar spine was reviewed and is as above. 11/08/2024 patient presented to hospital with excruciating pain to the lower back rating down to the leg and this patient did have a history of chronic back pain and has received multiple injection to the spine last 1 about a month ago now with abnormal CT suspicious for discitis/osteomyelitis patient however not running any fever did have a normal white count and does not look toxic -patient MRI has been suggestive of L4-5 discitis/osteomyelitis IR has been consulted for sampling of the area for microbiological diagnosis as orthopedic is not recommending any surgical intervention at this point I did discuss in detailed with surgeon and [employer] for admitting team once the sampling is done we will start the patient on cefepime and vancomycin pending culture finalization 11/09/2024 Patient is seen and evaluated on bedside; continues to report severe back and left hip pain; patient is status post attempted CT-guided intra discal aspiration Vital signs are reviewed and remained stable; aspirate Gram stain and culture is negative to date Patient with discitis at L4-5 with reaction within the vertebral bodies; orthopedic surgery on board and recommending to continue with conservative treatment. She will continue with IV antibiotics per infectious disease; if she is not having any improvement over the next several days consider the possibility of surgical decompression and irrigation and debridement. --LSO brace was ordered, this morning the brace is in the room, and patient was asked if they would like to have the brace fitted and they declined today. She may utilize this brace for comfort and support as needed with increased activities while working with physical therapy. She may increase her mobility and ambulation with PT and OT. 11/10/2024 Patient is seen in follow-up with multiple consultations following including orthopedics and infectious disease. Pain management has been consulted this patient follows with neurology outpatient although does not want to continue going there. Patient has LSO brace and has been up and working with physical therapy with plans on going to [facility] on discharge. Currently awaiting finalized cultures to determine appropriate discharge antibiotics. Patient continues with severe back pain and pain management planning on possible epidural injection and to continue holding anticoagulation along with Toradol for now until injection tomorrow. Cultures will likely be finalized later this evening and will discuss further with infectious disease regarding discharge planning. Will discuss further with case management once cultures have been finalized to determine appropriate antibiotics and treatment plan along with discharge moving forward. Patient would benefit from PT/OT therapy at an [facility], [facility] along with IV antibiotic therapy. Patient is afebrile and white count has normalized. 11/11/2024 Patient is seen in follow-up today with infectious disease and orthopedics following. Pain management had evaluated the patient recommending epidural injection although further discussing with orthopedics, plan will be for surgical intervention possibly on 11/12/2024. Patient continues to have significant pain and is screaming out in pain per nursing staff. Patient does have Dilaudid and also reporting significant muscle spasms in the thighs, will add Flexeril as needed as well. Blood pressures have been elevated and will continue current regimen, continue with as needed hydralazine as well. Patient will be n.p.o. at midnight and will await surgical report. Review of systems: Constitutional: No reports of fatigue, fever, or chills Cardiovascular: No reports of chest pain or palpitations Respiratory: No reports of shortness of breath or cough GI: No reports of nausea, vomiting, or diarrhea : No reports of dysuria or retention Neurovascular: reports of continued weakness as well as back pain with spasms in the thighs All medications have been reviewed Physical exam: Gen: This is a 59-year-old female who is awake, alert and oriented x 3, well- developed, appears older than stated age, more awake today HEENT: Head is atraumatic, normocephalic. Pupils equal, round. Sclerae is anicteric. NECK: Supple. No JVD. No lymphadenopathy. No thyromegaly. LUNGS: Diminished breath sounds bilaterally otherwise clear to auscultation. No wheezes or rhonchi. No intercostal retractions. HEART: S1, S2 are muffled ABDOMEN: Soft. Thin. Bowel sounds are present. No masses. No tenderness. EXTREMITIES: No pedal edema. No calf tenderness. NEUROLOGICAL: Patient is awake, alert and oriented x3. Cranial nerves 2 through 12 are grossly intact. Diffusely weak Assessment: Severe back pain with radiculopathy gait dysfunction related to pain L4-L5 discitis with osteomyelitis, cultures pending showing Staphylococcus epidermidis Severe spinal stenosis Moderate to severe degenerative disc disease of L5-S1 Hypertension Hyperlipidemia Diabetes mellitus, uncontrolled with hyper and hypoglycemia GI prophylaxis DVT prophylaxis Full code Plan: Continue with pain management per orthopedics. Given patient's continued ongoing severe symptoms of pain, orthopedics recommending surgical intervention possibly on 11/12/2024 Interventional radiology evaluated the patient status post culture and currently pending at this time with infectious disease following will continue current antibiotic regimen and awaiting finalized culture to determine discharge antibiotics. Preliminary culture showing Staphylococcus epidermidis Pain management was consulted considering possible epidural injection although orthopedics has canceled recommending surgical intervention at this time. Will await surgical report. Recommend cultures during surgery for evaluation. Case management following and discussing possibly discharge planning to [facility] as patient will likely require IV antibiotic therapy as well as continued PT/OT therapy Awaiting updated PT/OT therapy note and will continue with LSO brace Overall prognosis is guarded The impression and plan of care has been dictated by Samira Jolley, Nurse Practitioner as directed. Dr. Michelle MD I have performed a history and examination and MDM of this patient, discussed the same with the dictator, and agree with the dictator's assessment and plan as written ,documented as a scribe. Based on total visit time, I have performed more than 50% of the visit. Objective - Vital Signs Vital signs: Vital Signs Temp 98.1 F 11/11/24 06:52 Pulse 80 11/11/24 06:52 Resp 17 11/11/24 06:52 BP 185/84 11/11/24 06:52 Pulse Ox 98 11/11/24 06:52 FiO2 Intake & Output 11/10/24 11/11/24 11/11/24 18:59 06:59 18:59 Intake Total 650 1000 Output Total 1100 1300 Balance -450 -300 Intake: Intake, IV Titration 100 Amount Cefepime 2 gm In Dextrose 100 5% in Water 100 ml @ 25 mls/hr IVPB Q8HR [facility] Rx#: [id number] Oral 550 1000 Output: Urine 1100 1300 Other: Voiding Method External Catheter External Catheter - Labs CBC & Chem 7: 11/10/24 02:50 11/12/24 02:53 Labs: Abnormal Lab Results - Last 24 Hours (Table) 11/10/24 11/10/24 11/10/24 Range/Units 11:53 16:47 20:58 POC Glucose (mg/dL) 184 H 187 H 219 H (70-110) mg/dL 11/11/24 Range/Units 06:35 POC Glucose (mg/dL) 132 H (70-110) mg/dL Microbiology - Last 24 Hours (Table) 11/07/24 17:01 Anaerobic Culture - Preliminary Aspirate Staphylococcus epidermidis 11/05/24 15:05 Blood Culture - Final Blood 11/07/24 17:01 Gram Stain - Preliminary Aspirate Body Fluid Culture - Preliminary
[2024-11-12 06:11] LABS: Glucose,Whole Blood 91 mg/dL (70-110)
[2024-11-12 06:25] LABS: Basophils # (A) 0.22 10*3/uL (0.00-0.10); Basophils % (A) 1.6 %; Eosinophils # (A) 0.72 10*3/uL (0.04-0.35); Eosinophils % (A) 5.2 %; HCT 32.9 % (37.2-46.3); HGB 11.2 g/dL (12.0-15.0); Lymphocytes # (A) 3.87 10*3/uL (0.90-5.00); MCH 29.7 pg (27.0-32.0); MCV 87.3 fL (80.0-97.0); Mean Platelet Volume 11.5 fL (9.5-12.2); Monocytes # (A) 1.52 10*3/uL (0.20-1.00); Neutrophils # (A) 7.32 10*3/uL (1.80-7.70); Neutrophils % (A) 52.8 %; Platelet Count 369 10*3/uL (140-440); RBC 3.77 10*6/uL (4.10-5.20); RDW 14.5 % (11.5-14.5); WBC 13.84 10*3/uL (4.50-10.00)
[2024-11-12 11:31] LABS: African American GFR (CKD) >90 (>60 ml/min/1.73 sqM); Non-African American GFR(CKD) >90 (>60 ml/min/1.73 sqM)
[2024-11-12] MEDS: VANCOMYCIN TROUGH DUE 1 EACH MISC MISCELLANE ONE (11:38)
[2024-11-12 11:48] LABS: Glucose,Whole Blood 138 mg/dL (70-110)
--- NOTE | 2024-11-12 12:43 | P.PN ---
Progress Note - Text Progress Note Date: 11/12/24 Orthopedic spine: History of present illness: Patient is a very pleasant 59-year-old female who is seen examined at the bedside for follow-up evaluation for her lumbar spine. She has discitis at L4- 5. She had presented with severe low back pain. Over the weekend she states her low back pain has significantly improved. She is not currently experiencing any significant low back pain. She is utilizing LSO bracing for comfort and support as needed. She does continue to experience chronic pain in her lower extremities which she states is currently her most significant symptom. She has had some pain over the anterior thighs and posterior thighs. Currently her posterior thigh pain is her most significant pain. She does not feel her symptoms have had any significant movement and compared to her lower extremities. Pain has not been medically controlled. She was seen and examined yesterday and surgical intervention was discussed. Patient is currently scheduled for L3-4 and L4-5 laminectomy and decompression with discectomy scheduled for today, 11/12/2024. After further discussion at the bedside, patient is ready to proceed forward with surgical intervention as scheduled. She will sign informed consent. She is NPO. She is being seen by medicine and infectious disease. She has been seen by pain management who were planning for an epidural injection. This will be on hold as we are plan to proceed forward surgical intervention. Physical exam: Patient is awake, alert, and oriented 3 Vital signs stable Good chest excursion with deep inspiration and expiration No significant pain with palpation in her lumbar spine LSO brace currently intact Dorsiflexion, plantarflexion, and extensor hallucis longus positive sustained bilaterally Lower extremity strength 5/5 bilaterally Straight leg test negative bilateral lower extremities No signs or symptoms of DVT; no calf pain No pain with internal and external rotation of the hips bilaterally Neurovascularly intact Pertinent studies: MRI of the lumbar spine taken on 11/06/2024: L4-5 discitis with reaction within the vertebral bodies of L4 and 5; L4-5 severe spinal stenosis; L3-4 spinal stenosis; no obvious evidence of abscess or epidural phlegmon. CT of the lumbar spine taken on 11/05/2024: L4-5 severe degenerative disc disease with some sclerotic margins and bony erosion around the disc space presumptive for discitis per report; L4-5 and L5-S1 significant degenerative spondylosis Assessment: Acute on chronic low back pain; significantly improved over the weekend L4-5 discitis L4-5 severe spinal stenosis L3-4 spinal stenosis Bilateral lower extremity radiculopathy, chronic, without neurologic loss L4-5 and L5-S1 degenerative spondylosis History of injection with pain management with last injection approximate 1 month ago Diabetes mellitus Hypertension Hyperlipidemia Plan: 1. Patient has evidence of discitis at L4-5 with reaction within the vertebral bodies. She has chronic low back pain with chronic lower extremity radiculopathy. Her low back pain has significantly improved over the weekend. She currently denies any significant low back pain. She is utilizing LSO bracing for comfort and support as needed. She does continue to have some chronic lower extremity radiculopathy over the anterior thighs and posterior thighs. She has not had significant improvement or control of her pain over her lower extremities during her admission. Patient is currently scheduled for L3-4 and L4-5 laminectomy and decompression with discectomy scheduled for today, 11/12/2024. Surgical intervention was discussed in significant detail. After further discussion at the bedside, patient is ready to proceed forward with surgical intervention as scheduled. She will sign informed consent. She is NPO. I discussed these issues with the patient at length and I answered all of their questions to the best of my ability and the patient understands. I discussed the risk of surgical intervention and alternative treatment options. The risk of surgical intervention was explained to the patient in detail including but not limited to risk of bleeding, risk of infection, risk and need for further surgery, risk of decreased loss of motion of function, malunion, nonunion, hardware failure, nerve damage, paralysis, heart attack, , as well as the fact that surgery may not alleviate her symptoms. I answered all the patient's questions the best of my ability. The patient would like to proceed forward with surgical intervention and will sign informed consent. 2. She will continue with IV antibiotics per Dr. Mueller in infectious disease. 3. At the time of discharge, patient will most likely discharge to [facility]. 4. Patient will also continue to be seen and examined by medicine for her other medical diagnoses.
[2024-11-12] MEDS ORDERED: LACTATED RINGERS 1,000 ML IV SCH (13:31)
[2024-11-12] MEDS: LACTATED RINGERS 1,000 ML IV ONE ×2 (13:38→13:57)
[2024-11-12 13:53] LABS: Glucose,Whole Blood 126 mg/dL (70-110)
[2024-11-12] MEDS: LACTATED RINGERS 1,000 ML IV SCH (13:57)
[2024-11-12] MEDS: DEXAMETHASONE SOD PHOSPHATE 4 MG/ML 1 ML VIAL IV ONE (14:12)
[2024-11-12] MEDS: ONDANSETRON 4 MG/2 ML VIAL IVP ONE (14:12)
[2024-11-12] MEDS: MIDAZOLAM 2 MG/2 ML VIAL IV ONE (14:13)
[2024-11-12] MEDS: fentaNYL (PF) 50 MCG/ML 2 ML AMP IVP PRN (14:16)
[2024-11-12 15:26] VITALS: BMI 25.7
[2024-11-12] MEDS: GABAPENTIN 300 MG CAP PO STA (15:28)
[2024-11-12] MEDS: ACETAMINOPHEN TAB 500 MG TAB PO STA (15:28)
[2024-11-12] MEDS: MORPHINE SULFATE 4 MG/ML SYRINGE IVP STA (15:37)
[2024-11-12] MEDS ORDERED: ePHEDrine 50 MG/ML 1 ML VIAL ONE (15:55)
[2024-11-12] MEDS ORDERED: fentaNYL (PF) 50 MCG/ML 2 ML AMP ONE (15:55)
[2024-11-12] MEDS ORDERED: ROCURONIUM 10 MG/ML (5 ML VIAL) IV ONE (15:55)
[2024-11-12] MEDS ORDERED: GLYCOPYRROLATE 0.2 MG/ML 2 ML VIAL ONE (15:55)
[2024-11-12] MEDS ORDERED: LIDOCAINE 1% INJ 10MG/ML (20 ML MDV) ONE (15:55)
[2024-11-12] MEDS ORDERED: NEOSTIGMINE 1 MG/ML 10 ML VIAL ONE (15:55)
[2024-11-12] MEDS ORDERED: KETAMINE HCL IN 0.9 % NACL 50 MG/5 ML SYRINGE ONE (15:55)
[2024-11-12] MEDS ORDERED: PROPOFOL 10 MG/ML 20 ML VIAL IV ONE (15:55)
[2024-11-12] MEDS ORDERED: SUCCINYLCHOLINE CHLORIDE 200 MG/10 ML VIAL IV ONE (15:55)
[2024-11-12] MEDS ORDERED: PHENYLEPHRINE 10 MG/ML VIAL ONE (15:55)
[2024-11-12] MEDS ORDERED: MIDAZOLAM 2 MG/2 ML VIAL ONE (15:55)
[2024-11-12] MEDS: BUPIVACAINE (PF) 0.5% 30 ML VIAL SQ ONE (16:29)
[2024-11-12] MEDS: LIDOCAINE 2%-EPI 1:100,000 20 ML VIAL SQ ONE (16:29)
[2024-11-12] MEDS: ceFAZolin 1,000 MG in SODIUM CHLORIDE 0.9% 1,000 ML IRRIGATION ONE (16:42)
[2024-11-12] MEDS ORDERED: BENZOCAINE/MENTHOL LOZENG 1 EACH LOZENGE MUCOUS MEM PRN (17:36)
[2024-11-12] MEDS ORDERED: HYDROcodone/APAP 5-325MG 1 EACH TAB PO PRN (17:36)
[2024-11-12] MEDS ORDERED: HYDROmorphone 2 MG/ML 1 ML SYRINGE IVP PRN (17:36)
[2024-11-12] MEDS ORDERED: ONDANSETRON 4 MG/2 ML VIAL IVP PRN (17:36)
--- NOTE | 2024-11-12 17:49 | P.OP ---
Date of Procedure: 11/12/24 Preoperative Diagnosis: L4-5 discitis, osteomyelitis L4 and L5, severe spinal stenosis L3-4 L4-5, herniated nucleus pulposus L4-5, lower extremity radiculopathy, low back pain Postoperative Diagnosis: Same, there were no findings of any purulent material or pus at the L4-5 disc or at the area of laminectomy decompression Anesthesia: GETA Pathology: other (L4-5 disc deep culture sent to microbiology and products of L4-5 discectomy sent to pathology) Condition: stable Disposition: PACU Description of Procedure: BRIEF OPERATIVE NOTE Preoperative Diagnosis:L4-5 discitis, osteomyelitis L4 and L5, severe spinal stenosis L3-4 L4-5, herniated nucleus pulposus L4-5, lower extremity radiculopathy, low back pain Postoperative Diagnosis:L4-5 discitis, osteomyelitis L4 and L5, severe spinal stenosis L3-4 L4-5, herniated nucleus pulposus L4-5, lower extremity radiculopathy, low back pain Procedure: Laminectomy and decompression wide bilateral foraminotomies L4-5 Discectomy for decompression L4-5 Laminectomy and decompression with wide bilateral foraminotomies L3-4 Irrigation and debridement L4-5 disc space Surgeon: Dr. Hudson Blanking Press Operator: Joe WATSON who is present throughout the entire the case persistence during positioning, dissection, exposure, visualization, and all crucial elements of the case as well as closure. Anesthesia: General anesthesia Estimated blood loss: Approximately 50 cc Complications: None apparent Components implanted: None Specimen: Deep culture at L4-5 disc space sent to microbiology and products of discectomy at L4-5 disc sent to pathology Disposition: To recovery room in good stable condition. OPERATIVE INDICATIONS The patient has been having issues in their lower back and lower extremities. Over the past couple of months she has been having worsening of her back symptoms. Several weeks ago she underwent another epidural steroid injection with Dr. Buitrago's office on outpatient basis without any apparent complications at the time. However the injection did not provide her any relief and a couple of weeks later she started having worsening back pain and presented to the emergency room. She was found to have evidence of discitis with osteomyelitis at L4-5. She had significant signal changes on the CT scan and the MRI which correlated with this. She was admitted to the hospital and started on treatment for the discitis and osteomyelitis at L4-5. She has had an aspiration of the disc with interventional radiology which grew Staph epidermidis. She has been on IV antibiotics over the past week. Despite her appropriate treatment she has been having significant and even worsening pain in her back and her lower extremities. She was found to have severe stenosis at L3-4 and L4-5 with disc herniation particular at L4-5. She was not having apparent epidural abscess. She was not having neurologic change in her lower extremities. She was having persistent pain issues and was unable to mobilize. We were not able to control her pain well despite the antibiotic treatment and medical management for the pain. We discussed various treatment options including the possibly of surgery. We do not feel epidural steroid injection at this point would be appropriate in the face of infection. The patient has been through conservative treatment. I discussed the possibility of surgical intervention including decompression with discectomy at L4-5 and decompression at L3-4. With the diagnosis of active infection I felt that we should hold off on implant instrumentation at this juncture. I discussed this with her at length. We discussed various treatment options including surgery, and the patient wishes to proceed with surgery We discussed the risk, patient's alternatives and benefits of surgery including but not limited to, risk of bleeding risk of infection, risk of need for further surgery, risk of decreased, loss of motion, loss of function, nerve damage, paralysis, heart attack, blindness and . OPERATIVE SUMMARY After discussing all the risks, patient alternatives and benefits at length, the patient elected to proceed with surgical intervention, signed informed consent, and presented for their procedure. The patient was seen and examined in the preoperative holding area and the surgical site was marked. The patient was given antibiotics and brought to the operating room. The patient was sedated and intubated by anesthesia in standard fashion. The patient was positioned on to the operating room table in a prone position on the appropriate frame which was well-padded and well molded. We were careful to pad any bony prominences and pressure points. We were careful to maintain the patient's cervical spine and good neutral alignment and position throughout. The patient was prepped and draped in a normal standard fashion. An appropriate timeout and keystone protocol performed. We were able to proceed with the surgery. Fluoroscopy was utilized to establish the appropriate level. The local wound area was infiltrated with local anesthetic. An incision was made at the midline longitudinally over the appropriate levels at L3-4 and L4-5. Dissection was taken down subcutaneously to the level of the fascia which was split midline. Dissection was taken over the lamina. Intraoperative fluoroscopy was taken which showed a marker at the appropriate level at L3-4. With the appropriate level positively confirmed, I was able to appropriately dissect out the interlaminar space at L3-4 and L4-5 and we were able to proceed with laminectomy starting at L4-5 and then moving to L3-4. The wound was copiously irrigated and suctioned dry as had been done periodically throughout the case. Starting at L4-5 I performed a laminectomy with a combination of curettes and a high-speed bur and Kerrison rongeurs. I dissected down the midline and at the bilateral lamina and the bilateral neural foramen. Bilaterally, A small medial facetectomy was performed again further access. A partial foraminotomy was also performed. Portions of the ligamentum flavum were taken down to expose the dura and traversing nerve root. I was able to mobilize the traversing nerve root and gain access to the disc space. Note was made of obvious compression from the disc at L4-5. In the epidural space around the lamina there was no evidence of any purulence or abnormal infectious tissue. Protecting the soft tissue structures, a small annulotomy was established at L4- 5. At L4-5 disc I did not find any purulence. I did not find any pus. The disc was significantly degenerative with severe loss of disc height. Any extruded fragments were removed and herniations were removed. There was no evidence of purulence or pus. I was able to take a deep culture at the disc space and remove fragments of disc to pass off for microbiology and pathology. I was able to perform discectomy and remove any extruded disc fragments and any loose fragments from within the disc itself. There is some severe disc desiccation noted. I tried to preserve the disc annulus that appeared stable. There were no further extruded fragments noted. There is no evidence of dural tear or leak. Good hemostasis maintained. The wound was copiously irrigated and suctioned dry. Good decompression and discectomy was noted. At L3-4 I provided a similar laminectomy and decompression bilaterally with foraminotomies and partial medial facetectomy. I did not note any significant disc herniation and did not proceed with any discectomy at that level. I had good decompression at L3-4. There was no evidence of any dural tear or leak. The wound was copiously irrigated and suctioned dry with 3 L normal saline. There was no evidence of infectious material. We were able to proceed with closure. The fascia was closed for a watertight closure. The subcuticular tissue was closed with absorbable suture. The wound was cleaned and dried and dressed with the appropriate dressing. The drapes were broken down. The patient was gently rolled back onto their hospital bed being careful to maintain their cervical spine and good neutral alignment and position. They were woken up by anesthesia, extubated, and brought to the recovery room in good stable condition. The patient will be admitted to the hospital for observation and for appropriate postoperative care, medical management and monitoring. We will continue to follow them closely about the postoperative course.
--- NOTE | 2024-11-12 18:03 | XR ---
EXAMINATION TYPE: XR lumbar spine 2 or 3V, FL guidance operating room Intraoperative/procedural fluor oscopic services were provided. CLINICAL INDICATION:Female, 59 years old with history of L-3/l-4 Laminectomy; , [facility] FINDINGS: Post surgical changes from lumbar spine laminectomy decompression. No radiographic evidence for compl ication. Total fluoroscopy time is 3.2 seconds. DAP: 0.3117 Gycm2 uGym2 mGym2 Please see the operative/procedural note for further details. [facility], , 11/12/2024 6:00 PM
[2024-11-12] MEDS: MORPHINE SULFATE 2 MG/ML SYRINGE IVP STA (18:28)
[2024-11-12] MEDS: SODIUM CHLORIDE 0.9% 1,000 ML IV SCH (19:03)
[2024-11-12] MEDS: CYCLOBENZAPRINE 10 MG TAB PO PRN (20:31)
[2024-11-12] MEDS: KETOROLAC 15 MG/ML 1 ML VIAL IVP PRN (20:31)
[2024-11-12 20:54] LABS: Glucose,Whole Blood 197 mg/dL (70-110)
--- NOTE | 2024-11-13 05:32 | P.PN ---
Subjective Progress Note Date: 11/12/24 59 years old female who presents because of severe back pain Patient currently lying in bed looks not in distress stating that her pain in her lower back is 0/10 if she is at rest but gets more than that up to 10 if she moves. She reports pain in both legs more in the right leg than left leg although she says she has little weak and numb but her not many problems and she can move both upper and lower extremities with no weakness. Strength looks 5/5 in both lower extremities. Sensation looks intact. She denies any chest pain or dyspnea or other GI/ symptoms. Patient evaluated by orthopedic team and recommended MRI of the lumbar spine which is pending No need for antibiotics as per ID team as patient does not look septic pending further evaluation and MRI. She is hemodynamically stable and afebrile WBC is 11.2. Hemoglobin 10.1. Platelet count slightly elevated well BMP is unremarkable. Glucose 129. Liver enzymes not elevated. EKG showing sinus rhythm at [address]-T changes CT of the lumbar spine was reviewed and is as above. 11/08/2024 patient presented to hospital with excruciating pain to the lower back rating down to the leg and this patient did have a history of chronic back pain and has received multiple injection to the spine last 1 about a month ago now with abnormal CT suspicious for discitis/osteomyelitis patient however not running any fever did have a normal white count and does not look toxic -patient MRI has been suggestive of L4-5 discitis/osteomyelitis IR has been consulted for sampling of the area for microbiological diagnosis as orthopedic is not recommending any surgical intervention at this point I did discuss in detailed with surgeon and OPERATIONAL INTELLIGENCE OFFICER for admitting team once the sampling is done we will start the patient on cefepime and vancomycin pending culture finalization 11/09/2024 Patient is seen and evaluated on bedside; continues to report severe back and left hip pain; patient is status post attempted CT-guided intra discal aspiration Vital signs are reviewed and remained stable; aspirate Gram stain and culture is negative to date Patient with discitis at L4-5 with reaction within the vertebral bodies; orthopedic surgery on board and recommending to continue with conservative treatment. She will continue with IV antibiotics per infectious disease; if she is not having any improvement over the next several days consider the possibility of surgical decompression and irrigation and debridement. --LSO brace was ordered, this morning the brace is in the room, and patient was asked if they would like to have the brace fitted and they declined today. She may utilize this brace for comfort and support as needed with increased activities while working with physical therapy. She may increase her mobility and ambulation with PT and OT. 11/10/2024 Patient is seen in follow-up with multiple consultations following including orthopedics and infectious disease. Pain management has been consulted this patient follows with neurology outpatient although does not want to continue going there. Patient has LSO brace and has been up and working with physical therapy with plans on going to [facility] on discharge. Currently awaiting finalized cultures to determine appropriate discharge antibiotics. Patient continues with severe back pain and pain management planning on possible epidural injection and to continue holding anticoagulation along with Toradol for now until injection tomorrow. Cultures will likely be finalized later this evening and will discuss further with infectious disease regarding discharge planning. Will discuss further with case management once cultures have been finalized to determine appropriate antibiotics and treatment plan along with discharge moving forward. Patient would benefit from PT/OT therapy at an [facility] along with IV antibiotic therapy. Patient is afebrile and white count has normalized. 11/11/2024 Patient is seen in follow-up today with infectious disease and orthopedics following. Pain management had evaluated the patient recommending epidural injection although further discussing with orthopedics, plan will be for surgical intervention possibly on 11/12/2024. Patient continues to have significant pain and is screaming out in pain per nursing staff. Patient does have Dilaudid and also reporting significant muscle spasms in the thighs, will add Flexeril as needed as well. Blood pressures have been elevated and will continue current regimen, continue with as needed hydralazine as well. Patient will be n.p.o. at midnight and will await surgical report. 11/02/2024 Patient evaluated this morning currently n.p.o. patient is scheduled to undergo laminectomy with orthopedic surgery today. Will await official report. Patient continues to endorse significant severe 10/10 pain requiring [id number] pain medication. Labs reviewed and within normal limits. Blood pressures have been slightly elevated we will continue with as needed medication as patient is currently nothing by mouth for the procedure. Hopeful for deep tissue cultures during limited and will await finalized culture and will discuss with infectious disease regarding discharge planning. Plan is for [facility] on discharge. Review of systems: Constitutional: No reports of fatigue, fever, or chills Cardiovascular: No reports of chest pain or palpitations Respiratory: No reports of shortness of breath or cough GI: No reports of nausea, vomiting, or diarrhea : No reports of dysuria or retention Neurovascular: reports of continued weakness as well as back pain with spasms in the thighs All medications have been reviewed Physical exam: Gen: This is a 59-year-old female who is asleep although arousable, alert and oriented x 3, well-developed, appears older than stated age, anxious when awake HEENT: Head is atraumatic, normocephalic. Pupils equal, round. Sclerae is anicteric. NECK: Supple. No JVD. No lymphadenopathy. No thyromegaly. LUNGS: Diminished breath sounds bilaterally otherwise clear to auscultation. No wheezes or rhonchi. No intercostal retractions. HEART: S1, S2 are muffled ABDOMEN: Soft. Thin. Bowel sounds are present. No masses. No tenderness. EXTREMITIES: No pedal edema. No calf tenderness. NEUROLOGICAL: Patient is awake, alert and oriented x3. Cranial nerves 2 through 12 are grossly intact. Diffusely weak Assessment: Severe back pain with radiculopathy gait dysfunction related to pain L4-L5 discitis with osteomyelitis, cultures pending showing Staphylococcus epidermidis Severe spinal stenosis Moderate to severe degenerative disc disease of L5-S1 Hypertension Hyperlipidemia Diabetes mellitus, uncontrolled with hyper and hypoglycemia GI prophylaxis DVT prophylaxis Full code Plan: Continue with pain management per orthopedics. Given patient's continued ongoing severe symptoms of pain, orthopedics recommending surgical intervention with laminectomy today 11/12/2024. Will await official report. Interventional radiology evaluated the patient status post culture and currently pending at this time with infectious disease following will continue current antibiotic regimen and awaiting finalized culture to determine discharge antibiotics. Preliminary culture showing Staphylococcus epidermidis. Hopeful for deep tissue cultures during intervention Pain management was consulted considering possible epidural injection although orthopedics has canceled recommending surgical intervention at this time. Will await surgical report. Recommend cultures during surgery for evaluation. Case management following and discussing possibly discharge planning to [facility] as patient will likely require IV antibiotic therapy as well as continued PT/OT therapy Overall prognosis is guarded The impression and plan of care has been dictated by Samira Jolley Nurse Pr actitioner as directed. Dr. Michelle MD I have performed a history and examination and MDM of this patient, discussed the same with the dictator, and agree with the dictator's assessment and plan as written ,documented as a scribe. Based on total visit time, I have performed more than 50% of the visit. Objective - Vital Signs Vital signs: Vital Signs Temp 97.7 F 11/12/24 07:35 Pulse 84 11/12/24 07:35 Resp 18 11/12/24 07:35 BP 149/72 11/12/24 07:35 Pulse Ox 99 11/12/24 07:35 FiO2 Intake & Output 11/11/24 11/12/24 11/12/24 18:59 06:59 18:59 Output Total 1400 950 Balance -1400 -950 Output: Urine 1400 950 Other: Voiding Method External Catheter External Catheter # Voids 1 # Bowel Movements 1 - Labs CBC & Chem 7: 11/12/24 05:07 11/12/24 10:59 Labs: Abnormal Lab Results - Last 24 Hours (Table) 11/11/24 11/11/24 11/11/24 Range/Units 11:25 16:24 20:43 WBC (4.50-10.00) 10*3/uL RBC (4.10-5.20) 10*6/uL Hgb (12.0-15.0) g/dL Hct (37.2-46.3) % Immature Gran # (0.00-0.04) 10*3/uL Monocytes # (0.20-1.00) 10*3/uL Eosinophils # (0.04-0.35) 10*3/uL Basophils # (0.00-0.10) 10*3/uL Sodium (137-145) mmol/L Creatinine (0.52-1.04) mg/dL Glucose (74-99) mg/dL POC Glucose (mg/dL) 176 H 272 H 187 H (70-110) mg/dL 11/12/24 11/12/24 Range/Units 02:53 05:07 WBC 13.84 H (4.50-10.00) 10*3/uL RBC 3.77 L (4.10-5.20) 10*6/uL Hgb 11.2 L (12.0-15.0) g/dL Hct 32.9 L (37.2-46.3) % Immature Gran # 0.19 H (0.00-0.04) 10*3/uL Monocytes # 1.52 H (0.20-1.00) 10*3/uL Eosinophils # 0.72 H (0.04-0.35) 10*3/uL Basophils # 0.22 H (0.00-0.10) 10*3/uL Sodium 134 L (137-145) mmol/L Creatinine 0.51 L (0.52-1.04) mg/dL Glucose 120 H (74-99) mg/dL POC Glucose (mg/dL) (70-110) mg/dL Microbiology - Last 24 Hours (Table) 11/07/24 17:01 Anaerobic Culture - Final Aspirate Staphylococcus epidermidis 11/07/24 17:01 Gram Stain - Final Aspirate Body Fluid Culture - Final
[2024-11-13 06:21] LABS: Glucose,Whole Blood 123 mg/dL (70-110)
[2024-11-13 08:15] LABS: BUN/Creat Ratio 29.67 Ratio (12.00-20.00); Blood Urea Nitrogen 17.8 mg/dL (9.0-27.0); Calcium 9.1 mg/dL (8.7-10.3); Carbon Dioxide 24.8 mmol/L (21.6-31.8); Chloride 104 mmol/L (96-109); Glucose 144 mg/dL (70-110); Potassium 4.4 mmol/L (3.5-5.5); Sodium 137 mmol/L (135-145)
[2024-11-13 08:19] LABS: HCT 27.9 % (37.2-46.3); MCH 29.3 pg (27.0-32.0); MCHC 32.3 g/dL (32.0-37.0); MCV 90.9 FL (80.0-97.0); Mean Platelet Volume 11.6 FL (9.5-12.2); NRBC Per 100 WBC 0 X 10*3/uL (0.00-0.01); Platelet Count 324 X 10*3/uL (140-440); RBC 3.07 X 10*6/uL (4.10-5.20); RDW 14.7 % (11.5-14.5); WBC 16.34 X 10*3/uL (4.50-10.00)
[2024-11-13] MEDS ORDERED: METHYL FOLATE 1000 MCG PO SCH (09:00)
[2024-11-13] MEDS ORDERED: NON FORMULARY DRUG (Alpha Lipoic Acid [Alpha Lipoic Acid] 600 MG Tablet) PO SCH (09:00)
[2024-11-13 09:05] LABS: Basophils # (A) 0.09 X 10*3/uL (0.00-0.10); Basophils % (A) 0.6 %; Eosinophils # (A) 0.03 X 10*3/uL (0.04-0.35); Eosinophils % (A) 0.2 %; Lymphocytes # (A) 1.69 X 10*3/uL (0.90-5.00); Lymphocytes % (A) 10.3 %; Microcytosis (M) 2+ (None Seen); Monocytes # (A) 1.78 X 10*3/uL (0.20-1.00); Monocytes % (A) 10.9 %; Neutrophils # (A) 12.66 X 10*3/uL (1.80-7.70); Neutrophils % (A) 77.4 %
--- NOTE | 2024-11-13 10:02 | P.PN ---
Progress Note - Text Progress Note Date: 11/13/24 Orthopedic spine: History of present illness: Patient is a very pleasant 59-year-old female who is seen examined at the bedside for follow-up evaluation for her lumbar spine. She has discitis at L4- 5. She had presented with severe low back pain. Her lower extremity leg pain continue to be persistent without significant improvement. Her low back pain had improved. She underwent an L3-4 and L4-5 laminectomy and decompression with discectomy yesterday, 11/12/2024. Postoperatively, she states she does have improvement of her leg pain bilaterally. It continues to be present but the has had improvement. The pain at her surgical site at her lumbar spine is adequately controlled. She does feel she will get some pain in her legs with movement of her neck or her back. She is willing to work with physical therapy today. Her Palomares catheter was just discontinued this morning. She is being seen by medicine and infectious disease. Physical exam: Patient is awake, alert, and oriented 3 Vital signs stable Good chest excursion with deep inspiration and expiration No significant pain with palpation in her lumbar spine LSO brace currently intact Dorsiflexion, plantarflexion, and extensor hallucis longus positive sustained bilaterally Optifoam dressing is intact over the lumbar spine Surgical dressing at the lumbar spine is clean, dry, and intact, no active drainage or obvious sign of infection Lower extremity strength 5/5 bilaterally Straight leg test negative bilateral lower extremities No signs or symptoms of DVT; no calf pain Neurovascularly intact Pertinent studies: MRI of the lumbar spine taken on 11/06/2024: L4-5 discitis with reaction within the vertebral bodies of L4 and 5; L4-5 severe spinal stenosis; L3-4 spinal stenosis; no obvious evidence of abscess or epidural phlegmon. CT of the lumbar spine taken on 11/05/2024: L4-5 severe degenerative disc disease with some sclerotic margins and bony erosion around the disc space presumptive for discitis per report; L4-5 and L5-S1 significant degenerative spondylosis Assessment: Status post L3-4 and L4-5 laminectomy and decompression with discectomy Acute on chronic low back pain; significantly improved over the weekend L4-5 discitis L4-5 severe spinal stenosis L3-4 spinal stenosis Bilateral lower extremity radiculopathy, chronic, without neurologic loss L4-5 and L5-S1 degenerative spondylosis History of injection with pain management with last injection approximate 1 month ago Diabetes mellitus Hypertension Hyperlipidemia Plan: 1. Patient has evidence of discitis at L4-5 with reaction within the vertebral bodies. She has chronic low back pain with chronic lower extremity radiculopathy. Her low back pain has significantly improved over the weekend. She currently denies any significant low back pain. She is utilizing LSO bracing for comfort and support as needed. She does continue to have some chronic lower extremity radiculopathy over the anterior thighs and posterior thighs. She has not had significant improvement or control of her pain over her lower extremities during her admission. Yesterday she underwent an L3-4 and L4-5 laminectomy and decompression with discectomy. She has had some improvement of her lower extremity leg pain postoperatively. We did discuss she is encouraged to work with physical therapy to increase her mobility and ambulation. We did discuss that Culture was taken at the L4-5 disc space along with L4-5 disc material sent to pathology taken during surgical intervention. These lab results are pending. Once the patient is able to increase her mobility and ambulation his pain is controlled, she be cleared for discharge from orthopedic spine standpoint. Patient may follow-up with Joe Fang PA-C or Dr. Charanjit Hudson at [facility] in 2-3 weeks following discharge. 2. She will continue with IV antibiotics per Dr. Mueller in infectious disease. 3. At the time of discharge, patient will most likely discharge to [facility]. 4. Patient will also continue to be seen and examined by medicine for her other medical diagnoses. The patient is seen and examined at bedside. She is doing well this morning and was able to ambulate much better today than she has in the past week. She did have recurrence of her pain after sitting and getting up. She gets very anxious about her pain and I talked to her at length about this. She is neurologically intact and has had significant benefit with the decompression. She understands that she will continue to have pain around her back and is still recovering from her surgery just yesterday. Hopefully she will continue to be able to mobilize adequately. She did not have evidence of infectious process at the time of surgery but we are awaiting cultures. She should continue infectious disease management as per Dr. Mueller She would like to go to rehab posthospitalization, and that is being arranged. It is okay for her to increase her mobility as tolerated from orthospine standpoint
[2024-11-13 11:45] LABS: Glucose,Whole Blood 90 mg/dL (70-110)
--- NOTE | 2024-11-13 15:19 | P.PN ---
Subjective Progress Note Date: 11/12/24 Principal diagnosis: Reason for follow-up is L4-5 discitis/osteomyelitis Patient is a 59-year-old female with a past medical history significant for diabetes mellitus reflux hypertension hyperlipidemia presenting to the hospital for evaluation of worsening back pain patient did have a history of chronic back pain for which she did follow-up with and patient has multiple injection to the spine patient did have a CT of the lumbar spine suggestive of discitis osteomyelitis of the L4-5 level prompted this consultation. On today's evaluation that is 11/12/2024,the patient denies any fever or any chills, patient is breathing comfortably on room air, the patient denies chest pain shortness of breath and no significant cough, patient denies abdominal pain , no nausea vomiting or diarrhea. Patient did complain of pain to the lower extremity in the back area but no weakness. Patient white count is 13.84 creatinine 0.52 Objective - Vital Signs Vital signs: Vital Signs Temp 97.7 F 11/12/24 07:35 Pulse 84 11/12/24 07:35 Resp 18 11/12/24 07:35 BP 149/72 11/12/24 07:35 Pulse Ox 99 11/12/24 07:35 FiO2 Intake & Output 11/11/24 11/12/24 11/12/24 18:59 06:59 18:59 Output Total 1400 950 Balance -1400 -950 Output: Urine 1400 950 Other: Voiding Method External Catheter External Catheter # Voids 1 # Bowel Movements 1 - Exam GENERAL DESCRIPTION: Middle-age female lying in bed in no distress RESPIRATORY SYSTEM: Unlabored breathing , decreased breath sounds at bases HEART: S1 S2 regular rate and rhythm , ABDOMEN: Soft , no tenderness EXTREMITIES: No edema feet - Labs CBC & Chem 7: 11/13/24 04:42 11/13/24 04:42 Labs: Abnormal Lab Results - Last 24 Hours (Table) 11/11/24 11/11/24 11/12/24 Range/Units 16:24 20:43 02:53 WBC (4.50-10.00) 10*3/uL RBC (4.10-5.20) 10*6/uL Hgb (12.0-15.0) g/dL Hct (37.2-46.3) % Immature Gran # (0.00-0.04) 10*3/uL Monocytes # (0.20-1.00) 10*3/uL Eosinophils # (0.04-0.35) 10*3/uL Basophils # (0.00-0.10) 10*3/uL Sodium 134 L (137-145) mmol/L Creatinine 0.51 L (0.52-1.04) mg/dL Glucose 120 H (74-99) mg/dL POC Glucose (mg/dL) 272 H 187 H (70-110) mg/dL 11/12/24 11/12/24 Range/Units 05:07 11:46 WBC 13.84 H (4.50-10.00) 10*3/uL RBC 3.77 L (4.10-5.20) 10*6/uL Hgb 11.2 L (12.0-15.0) g/dL Hct 32.9 L (37.2-46.3) % Immature Gran # 0.19 H (0.00-0.04) 10*3/uL Monocytes # 1.52 H (0.20-1.00) 10*3/uL Eosinophils # 0.72 H (0.04-0.35) 10*3/uL Basophils # 0.22 H (0.00-0.10) 10*3/uL Sodium (137-145) mmol/L Creatinine (0.52-1.04) mg/dL Glucose (74-99) mg/dL POC Glucose (mg/dL) 138 H (70-110) mg/dL Microbiology - Last 24 Hours (Table) 11/07/24 17:01 Anaerobic Culture - Final Aspirate Staphylococcus epidermidis 11/07/24 17:01 Gram Stain - Final Aspirate Body Fluid Culture - Final Assessment and Plan (1) Discitis Current Visit: Yes Status: Acute Code(s): M46.40 - DISCITIS, UNSPECIFIED, SITE UNSPECIFIED SNOMED Code(s): 7844724 (2) Osteomyelitis Current Visit: Yes Status: Acute Code(s): M86.9 - OSTEOMYELITIS, UNSPECIFIED SNOMED Code(s): 53390998 Plan: 1patient presented to hospital with excruciating pain to the lower back rating down to the leg and this patient did have a history of chronic back pain and has received multiple injection to the spine last 1 about a month ago now with abnormal CT suspicious for discitis/osteomyelitis patient however not running any fever did have a normal white count and does not look toxic 2-patient MRI has been suggestive of L4-5 discitis/osteomyelitis patient is status post IR sampling of the area and is scheduled for surgical treatment this afternoon and deep culture 3patient remains to be afebrile white count slightly up we will monitor closely for now continue cefepime and vancomycin Dictation was produced using [employer] dictation software. please excuse any grammatical, word or spelling errors. Time with Patient: Less than 30
--- NOTE | 2024-11-13 15:21 | P.PN ---
Subjective Progress Note Date: 11/13/24 Principal diagnosis: Reason for follow-up is L4-5 discitis/osteomyelitis Patient is a 59-year-old female with a past medical history significant for diabetes mellitus reflux hypertension hyperlipidemia presenting to the hospital for evaluation of worsening back pain patient did have a history of chronic back pain for which she did follow-up with and patient has multiple injection to the spine patient did have a CT of the lumbar spine suggestive of discitis osteomyelitis of the L4-5 level prompted this consultation.Patient is status post laminectomy and decompression of L4-5 along with a blood biopsy no significant purulent drainage was noticed procedure completed on 11/12/2024. On today's evaluation that is 11/13/2024,the patient remains to be afebrile, patient is on room air not requiring supplemental oxygen and denies any shortness of breath no chest pain or cough.Patient denies having any nausea or vomiting, no abdominal pain and no diarrhea has been reported, still complaining of pain to the lower back but slightly decreased intensity Patient went for 16.34 creatinine 0.6 initial culture with staph epi OR cultures are pending Objective - Vital Signs Vital signs: Vital Signs Temp 98.2 F 11/13/24 14:03 Pulse 86 11/13/24 14:03 Resp 16 11/13/24 14:03 BP 125/73 11/13/24 14:03 Pulse Ox 100 11/13/24 14:03 FiO2 Intake & Output 11/12/24 11/13/24 11/13/24 18:59 06:59 18:59 Intake Total 1001 10 Output Total 1100 1000 Balance -99 -990 Weight 68.039 kg Intake: IV 1001 10 Invasive Line 5 10 Output: Urine 1050 1000 Estimated Blood Loss 50 Other: Voiding Method External Catheter Indwelling Catheter Toilet Bedside Commode - Exam GENERAL DESCRIPTION: Middle-age female lying in bed in no distress RESPIRATORY SYSTEM: Unlabored breathing , decreased breath sounds at bases HEART: S1 S2 regular rate and rhythm , ABDOMEN: Soft , no tenderness EXTREMITIES: No edema feet - Labs CBC & Chem 7: 11/13/24 04:42 11/13/24 04:42 Labs: Abnormal Lab Results - Last 24 Hours (Table) 11/12/24 11/13/24 11/13/24 Range/Units 20:52 04:42 04:42 WBC 16.34 H (4.50-10.00) X 10*3/uL RBC 3.07 L (4.10-5.20) X 10*6/uL Hgb 9.0 L (12.0-15.0) g/dL Hct 27.9 L (37.2-46.3) % RDW 14.7 H (11.5-14.5) % Immature Gran # 0.09 H (0.00-0.04) X 10*3/uL Neutrophils # 12.66 H (1.80-7.70) X 10*3/uL Monocytes # 1.78 H (0.20-1.00) X 10*3/uL Eosinophils # 0.03 L (0.04-0.35) X 10*3/uL Microcytosis (manual) 2+ A (None Seen) BUN/Creatinine Ratio 29.67 H (12.00-20.00) Ratio Glucose 144 H (70-110) mg/dL POC Glucose (mg/dL) 197 H (70-110) mg/dL 11/13/24 Range/Units 06:20 WBC (4.50-10.00) X 10*3/uL RBC (4.10-5.20) X 10*6/uL Hgb (12.0-15.0) g/dL Hct (37.2-46.3) % RDW (11.5-14.5) % Immature Gran # (0.00-0.04) X 10*3/uL Neutrophils # (1.80-7.70) X 10*3/uL Monocytes # (0.20-1.00) X 10*3/uL Eosinophils # (0.04-0.35) X 10*3/uL Microcytosis (manual) (None Seen) BUN/Creatinine Ratio (12.00-20.00) Ratio Glucose (70-110) mg/dL POC Glucose (mg/dL) 123 H (70-110) mg/dL Assessment and Plan (1) Discitis Current Visit: Yes Status: Acute Code(s): M46.40 - DISCITIS, UNSPECIFIED, SITE UNSPECIFIED SNOMED Code(s): 6870253 (2) Osteomyelitis Current Visit: Yes Status: Acute Code(s): M86.9 - OSTEOMYELITIS, UNSPECIFIED SNOMED Code(s): 51474231 Plan: 1patient presented to hospital with excruciating pain to the lower back rating down to the leg and this patient did have a history of chronic back pain and has received multiple injection to the spine last 1 about a month ago now with abnormal CT suspicious for discitis/osteomyelitis patient however not running any fever did have a normal white count and does not look toxic 2-patient MRI has been suggestive of L4-5 discitis/osteomyelitis patient is status post IR sampling of the area and is status post laminectomy and decompression of L4-5 on 11/12/2024 along with a biopsy and culture results will be followed 3patient remains to be afebrile white count slightly up could be reactive postsurgery and will monitor closely 4for now continue with the vancomycin and cefepime while waiting for the OR cultures to be finalized Dictation was produced using [employer] dictation software. please excuse any grammatical, word or spelling errors. Time with Patient: Less than 30
[2024-11-13 16:28] LABS: Glucose,Whole Blood 172 mg/dL (70-110)
[2024-11-13 20:16] LABS: Glucose,Whole Blood 202 mg/dL (70-110)
--- NOTE | 2024-11-14 05:09 | P.PN ---
Subjective Progress Note Date: 11/13/24 59 years old female who presents because of severe back pain Patient currently lying in bed looks not in distress stating that her pain in her lower back is 0/10 if she is at rest but gets more than that up to 10 if she moves. She reports pain in both legs more in the right leg than left leg although she says she has little weak and numb but her not many problems and she can move both upper and lower extremities with no weakness. Strength looks 5/5 in both lower extremities. Sensation looks intact. She denies any chest pain or dyspnea or other GI/ symptoms. Patient evaluated by orthopedic team and recommended MRI of the lumbar spine which is pending No need for antibiotics as per ID team as patient does not look septic pending further evaluation and MRI. She is hemodynamically stable and afebrile WBC is 11.2. Hemoglobin 10.1. Platelet count slightly elevated well BMP is unremarkable. Glucose 129. Liver enzymes not elevated. EKG showing sinus rhythm at [address]-T changes CT of the lumbar spine was reviewed and is as above. 11/08/2024 patient presented to hospital with excruciating pain to the lower back rating down to the leg and this patient did have a history of chronic back pain and has received multiple injection to the spine last 1 about a month ago now with abnormal CT suspicious for discitis/osteomyelitis patient however not running any fever did have a normal white count and does not look toxic -patient MRI has been suggestive of L4-5 discitis/osteomyelitis IR has been consulted for sampling of the area for microbiological diagnosis as orthopedic is not recommending any surgical intervention at this point I did discuss in detailed with surgeon and [employer] for admitting team once the sampling is done we will start the patient on cefepime and vancomycin pending culture finalization 11/09/2024 Patient is seen and evaluated on bedside; continues to report severe back and left hip pain; patient is status post attempted CT-guided intra discal aspiration Vital signs are reviewed and remained stable; aspirate Gram stain and culture is negative to date Patient with discitis at L4-5 with reaction within the vertebral bodies; orthopedic surgery on board and recommending to continue with conservative treatment. She will continue with IV antibiotics per infectious disease; if she is not having any improvement over the next several days consider the possibility of surgical decompression and irrigation and debridement. --LSO brace was ordered, this morning the brace is in the room, and patient was asked if they would like to have the brace fitted and they declined today. She may utilize this brace for comfort and support as needed with increased activities while working with physical therapy. She may increase her mobility and ambulation with PT and OT. 11/10/2024 Patient is seen in follow-up with multiple consultations following including orthopedics and infectious disease. Pain management has been consulted this patient follows with neurology outpatient although does not want to continue going there. Patient has LSO brace and has been up and working with physical therapy with plans on going to [facility] on discharge. Currently awaiting finalized cultures to determine appropriate discharge antibiotics. Patient continues with severe back pain and pain management planning on possible epidural injection and to continue holding anticoagulation along with Toradol for now until injection tomorrow. Cultures will likely be finalized later this evening and will discuss further with infectious disease regarding discharge planning. Will discuss further with case management once cultures have been finalized to determine appropriate antibiotics and treatment plan along with discharge moving forward. Patient would benefit from PT/OT therapy at an [facility] along with IV antibiotic therapy. Patient is afebrile and white count has normalized. 11/11/2024 Patient is seen in follow-up today with infectious disease and orthopedics following. Pain management had evaluated the patient recommending epidural injection although further discussing with orthopedics, plan will be for surgical intervention possibly on 11/12/2024. Patient continues to have significant pain and is screaming out in pain per nursing staff. Patient does have Dilaudid and also reporting significant muscle spasms in the thighs, will add Flexeril as needed as well. Blood pressures have been elevated and will continue current regimen, continue with as needed hydralazine as well. Patient will be n.p.o. at midnight and will await surgical report. 11/12/2024 Patient evaluated this morning currently n.p.o. patient is scheduled to undergo laminectomy with orthopedic surgery today. Will await official report. Patient continues to endorse significant severe 10/10 pain requiring [id number] pain medication. Labs reviewed and within normal limits. Blood pressures have been slightly elevated we will continue with as needed medication as patient is currently nothing by mouth for the procedure. Hopeful for deep tissue cultures during limited and will await finalized culture and will discuss with infectious disease regarding discharge planning. Plan is for [facility] on discharge. 11/13/2024 Patient is seen in follow-up this morning status post L3-4, L4-5 laminectomy with decompression and discectomy. Patient being followed by infectious disease maintained on antibiotics and will plan for PICC line as patient will require IV antibiotics on discharge. Patient will be going to [facility] once stabilized and cleared by consultations. Orthopedics following as well recommending working with physical therapy with a brace while out of bed. Patient to continue with pain management and will adjust accordingly recommending to limit IV narcotic use. Patient continues with an elevated white count at 16 and is afebrile and is continued on antibiotics per ID recommendations. Awaiting cultures from surgical intervention to determine appropriate discharge antibiotics. Patient is afebrile and encouraged continued incentive spirometer use. Discussed with the patient at length with nursing staff at bedside about getting up and sitting in the chair more frequently and sitting up with all meals. Patient reports she was in the chair for an hour this morning and plans on getting up again for dinner. Strongly suggested increased activity as tolerated. Review of systems: Constitutional: No reports of fatigue, fever, or chills Cardiovascular: No reports of chest pain or palpitations Respiratory: No reports of shortness of breath or cough GI: No reports of nausea, vomiting, or diarrhea : No reports of dysuria or retention Neurovascular: reports of continued weakness as well as back pain with tingling down the thighs All medications have been reviewed Physical exam: Gen: This is a 59-year-old female who is awake, alert and oriented x 3, anxious, well-developed, appears older than stated age HEENT: Head is atraumatic, normocephalic. Pupils equal, round. Sclerae is an icteric. NECK: Supple. No JVD. No lymphadenopathy. No thyromegaly. LUNGS: Diminished breath sounds bilaterally otherwise clear to auscultation. No wheezes or rhonchi. No intercostal retractions. HEART: S1, S2 are muffled ABDOMEN: Soft. Thin. Bowel sounds are present. No masses. No tenderness. EXTREMITIES: No pedal edema. No calf tenderness. NEUROLOGICAL: Patient is awake, alert and oriented x3. Cranial nerves 2 through 12 are grossly intact. Diffusely weak Assessment: Severe back pain with radiculopathy, status post L3-4 and L4-5 laminectomy and decompression with discectomy on 11/12/2024 gait dysfunction related to pain L4-L5 discitis with osteomyelitis, cultures pending showing Staphylococcus epidermidis Severe spinal stenosis Moderate to severe degenerative disc disease of L5-S1 Hypertension Hyperlipidemia Diabetes mellitus, uncontrolled with hyper and hypoglycemia Anxiety GI prophylaxis DVT prophylaxis Full code Plan: Continue with pain management per orthopedics. Given patient's continued ongoing severe symptoms of pain, orthopedics recommended surgical intervention and is status post L3-4 and L4-5 laminectomy with decompression and discectomy. Cultures are pending at this time with infectious disease following and will await cultures to determine appropriate discharge antibiotics. Will plan for PICC line placement and order has been placed and pending at this time Case management following and discussing discharge planning to [facility] once patient has been cleared by consultations in stable along with finalized cultures as patient will require IV antibiotic therapy as well as continued PT/OT therapy PICC line order placed Encourage incentive spirometer use and increased activity as tolerated with restrictions for orthopedics, LSO brace while out of bed Discussed with the patient at length regarding increased activity and sitting up in the chair with all meals Follow-up on repeat labs and monitor white count Continue bowel regimen Will discuss with surgery about resuming Xarelto after PICC line is placed Due to multiple complex medical issues, overall prognosis is guarded The impression and plan of care has been dictated by Samira Jolley, Nurse Practitioner as directed. Dr. Michelle MD I have performed a history and examination and MDM of this patient, discussed the same with the dictator, and agree with the dictator's assessment and plan as written ,documented as a scribe. Based on total visit time, I have performed more than 50% of the visit. Objective - Vital Signs Vital signs: Vital Signs Temp 98.4 F 11/13/24 07:30 Pulse 102 H 11/13/24 09:16 Resp 16 11/13/24 09:16 BP 120/69 11/13/24 07:30 Pulse Ox 99 11/13/24 07:30 FiO2 Intake & Output 11/12/24 11/13/24 11/13/24 18:59 06:59 18:59 Intake Total 1001 10 Output Total 1100 1000 Balance -99 -990 Weight 68.039 kg Intake: IV 1001 10 Invasive Line 5 10 Output: Urine 1050 1000 Estimated Blood Loss 50 Other: Voiding Method External Catheter Indwelling Catheter Toilet Bedside Commode - Labs CBC & Chem 7: 11/13/24 04:42 11/13/24 04:42 Labs: Abnormal Lab Results - Last 24 Hours (Table) 11/12/24 11/12/24 11/12/24 Range/Units 11:46 13:51 20:52 WBC (4.50-10.00) X 10*3/uL RBC (4.10-5.20) X 10*6/uL Hgb (12.0-15.0) g/dL Hct (37.2-46.3) % RDW (11.5-14.5) % Immature Gran # (0.00-0.04) X 10*3/uL Neutrophils # (1.80-7.70) X 10*3/uL Monocytes # (0.20-1.00) X 10*3/uL Eosinophils # (0.04-0.35) X 10*3/uL Microcytosis (manual) (None Seen) BUN/Creatinine Ratio (12.00-20.00) Ratio Glucose (70-110) mg/dL POC Glucose (mg/dL) 138 H 126 H 197 H (70-110) mg/dL 11/13/24 11/13/24 11/13/24 Range/Units 04:42 04:42 06:20 WBC 16.34 H (4.50-10.00) X 10*3/uL RBC 3.07 L (4.10-5.20) X 10*6/uL Hgb 9.0 L (12.0-15.0) g/dL Hct 27.9 L (37.2-46.3) % RDW 14.7 H (11.5-14.5) % Immature Gran # 0.09 H (0.00-0.04) X 10*3/uL Neutrophils # 12.66 H (1.80-7.70) X 10*3/uL Monocytes # 1.78 H (0.20-1.00) X 10*3/uL Eosinophils # 0.03 L (0.04-0.35) X 10*3/uL Microcytosis (manual) 2+ A (None Seen) BUN/Creatinine Ratio 29.67 H (12.00-20.00) Ratio Glucose 144 H (70-110) mg/dL POC Glucose (mg/dL) 123 H (70-110) mg/dL
[2024-11-14 06:12] LABS: Glucose,Whole Blood 85 mg/dL (70-110)
[2024-11-14 08:21] LABS: Basophils # (A) 0.08 X 10*3/uL (0.00-0.10); Basophils % (A) 0.7 %; Eosinophils # (A) 0.27 X 10*3/uL (0.04-0.35); Eosinophils % (A) 2.4 %; HCT 25.7 % (37.2-46.3); HGB 7.9 g/dL (12.0-15.0); Lymphocytes # (A) 1.69 X 10*3/uL (0.90-5.00); Lymphocytes % (A) 14.8 %; MCH 28.9 pg (27.0-32.0); MCHC 30.7 g/dL (32.0-37.0); MCV 94.1 FL (80.0-97.0); Mean Platelet Volume 12.2 FL (9.5-12.2); Monocytes # (A) 2.27 X 10*3/uL (0.20-1.00); Monocytes % (A) 19.8 %; NRBC Per 100 WBC 0 X 10*3/uL (0.00-0.01); Neutrophils # (A) 7.06 X 10*3/uL (1.80-7.70); Neutrophils % (A) 61.7 %; Platelet Count 253 X 10*3/uL (140-440); RBC 2.73 X 10*6/uL (4.10-5.20); RDW 15.5 % (11.5-14.5); WBC 11.44 X 10*3/uL (4.50-10.00)
[2024-11-14 08:38] LABS: BUN/Creat Ratio 32.67 Ratio (12.00-20.00); Blood Urea Nitrogen 19.6 mg/dL (9.0-27.0); Calcium 8.8 mg/dL (8.7-10.3); Carbon Dioxide 21.6 mmol/L (21.6-31.8); Chloride 108 mmol/L (96-109); Glucose 98 mg/dL (70-110); Magnesium 1.6 mg/dL (1.5-2.4); Potassium 4.4 mmol/L (3.5-5.5); Sodium 138 mmol/L (135-145)
--- NOTE | 2024-11-14 08:44 | P.PN ---
Progress Note - Text Progress Note Date: 11/14/24 Orthopedic spine: History of present illness: Patient is a very pleasant 59-year-old female who is seen examined at the bedside for follow-up evaluation for her lumbar spine. She has discitis at L4- 5. She had presented with severe low back pain. Her lower extremity leg pain continue to be persistent without significant improvement. Her low back pain had improved. She underwent an L3-4 and L4-5 laminectomy and decompression with discectomy yesterday, 11/12/2024. Postoperatively, she states she does have improvement of her leg pain bilaterally. It continues to be present but the has had improvement. The pain at her surgical site at her lumbar spine is adequately controlled. She has been working with physical therapy today. Her Palomares catheter was discontinued yesterday. She is voiding without difficulty. She has been able to increase her mobilization. She is planning for discharge to rehabilitation facility. Nursing states they are also planning for PICC line placement which could happen today. It is possible patient may be cleared for discharge today. She is being seen by medicine and infectious disease. Physical exam: Patient is awake, alert, and oriented 3 Vital signs stable Good chest excursion with deep inspiration and expiration No significant pain with palpation in her lumbar spine Dorsiflexion, plantarflexion, and extensor hallucis longus positive sustained bilaterally Optifoam dressing is intact over the lumbar spine Surgical dressing at the lumbar spine is clean, dry, and intact, no active drainage or obvious sign of infection Lower extremity strength 5/5 bilaterally Straight leg test negative bilateral lower extremities No signs or symptoms of DVT; no calf pain Neurovascularly intact Pertinent studies: MRI of the lumbar spine taken on 11/06/2024: L4-5 discitis with reaction within the vertebral bodies of L4 and 5; L4-5 severe spinal stenosis; L3-4 spinal stenosis; no obvious evidence of abscess or epidural phlegmon. CT of the lumbar spine taken on 11/05/2024: L4-5 severe degenerative disc disease with some sclerotic margins and bony erosion around the disc space presumptive for discitis per report; L4-5 and L5-S1 significant degenerative spondylosis Assessment: Status post L3-4 and L4-5 laminectomy and decompression with discectomy Acute on chronic low back pain; significantly improved over the weekend L4-5 discitis L4-5 severe spinal stenosis L3-4 spinal stenosis Bilateral lower extremity radiculopathy, chronic, without neurologic loss L4-5 and L5-S1 degenerative spondylosis History of injection with pain management with last injection approximate 1 month ago Diabetes mellitus Hypertension Hyperlipidemia Plan: 1. Patient has evidence of discitis at L4-5 with reaction within the vertebral bodies. She has chronic low back pain with chronic lower extremity radiculopathy. Her low back pain has significantly improved over the weekend. She currently denies any significant low back pain. She is utilizing LSO bracing for comfort and support as needed. She does continue to have some chronic lower extremity radiculopathy over the anterior thighs and posterior thighs. She has not had significant improvement or control of her pain over her lower extremities during her admission. Yesterday she underwent an L3-4 and L4-5 laminectomy and decompression with discectomy. She has had some improvement of her lower extremity leg pain postoperatively. We did discuss she is encouraged to work with physical therapy to increase her mobility and ambulation. We did discuss that Culture was taken at the L4-5 disc space along with L4-5 disc material sent to pathology taken during surgical intervention. These lab results are pending. Infectious disease may plan to alter antibiotics per the recommendations following culture results. Patient is cleared for discharge from an orthopedic spine standpoint. Patient may follow-up with Joe Fang PA-C or Dr. Charanjit Hudson at [facility] in 2-3 weeks following discharge. Prescription is written, signed, and placed in the patient's chart for hydrocodone 5 mg / 325 mg, 1 tab, every 4 hours, as needed for acute pain, dispense #28. 2. She will continue with IV antibiotics per Dr. Mueller in infectious disease. 3. At the time of discharge, patient will most likely discharge to [facility]. 4. Patient will also continue to be seen and examined by medicine for her other medical diagnoses.
[2024-11-14 10:15] LABS: INR 0.95 sec (0.93-1.11); Prothrombin Time 10.9 sec (9.9-11.9)
[2024-11-14 11:53] LABS: Glucose,Whole Blood 100 mg/dL (70-110)
--- NOTE | 2024-11-14 15:20 | P.DS ---
Providers Date of admission: 11/05/24 16:13 Expected date of discharge: 11/14/24 Attending physician: Munir Link Consults: 11/05/24 16:07 Consult Physician Routine Consulting Provider: Krystyna Mueller Consult Reason/Comments: discitis Do you want consulting provider notified?: Yes 11/05/24 16:08 Consult Physician Routine Consulting Provider: Lavon Hudson Consult Reason/Comments: discitis?? Do you want consulting provider notified?: Yes Primary care physician: Silvio Garcia MD Hospital Course: Final diagnosis Severe back pain with radiculopathy, status post L3-4 and L4-5 laminectomy and decompression with discectomy on 11/12/2024 gait dysfunction related to pain L4-L5 discitis with osteomyelitis, cultures pending showing Staphylococcus epidermidis Severe spinal stenosis Moderate to severe degenerative disc disease of L5-S1 Hypertension Hyperlipidemia Diabetes mellitus, uncontrolled with hyper and hypoglycemia Anxiety GI prophylaxis DVT prophylaxis Full code Discharge disposition Patient is being discharged in a stable condition with guarded prognosis to [facility]. Patient will follow-up with Dr. Mcelroy in the outpatient setting upon discharge. Patient is to continue with IV antibiotics with a PICC line in the right arm in the form of cefazolin and close outpatient follow-up with orthopedics and infectious disease as scheduled. Total time taken is greater than 35 minutes. Hospital course This is a 59-year-old female who was recently admitted with severe back pain with radiculopathy with gait dysfunction and inability to ambulate. Patient evaluated by orthopedics and also infectious disease as there was concern of discitis with osteomyelitis and initial culture showing Staphylococcus epidermidis. Patient continued to have persistent pain and weakness and orthopedics recommended surgical intervention and is status post L3-4 and L4-5 laminectomy and decompression with discectomy. Finalized cultures are pending at this time and will be continued on IV cefazolin on discharge. Patient has been cleared by consultations recommending outpatient follow-up with orthopedics in the next 2 weeks. Patient to continue with diabetic diet with Accu-Cheks AC and at bedtime. Patient does have an LSO brace and recommend to continue while out of bed. Please refer to other consultation notes for further HPI. Currently no reports of chest pain, shortness of breath, or palpitations. Patient is afebrile. No reports of nausea or vomiting and patient is tolerating diet. Patient will be discharged to [facility] on the curiel today. Guarded prognosis and high risk for readmissions given significant comorbidities. Physical exam: Gen: This is a 59-year-old female who is awake, alert and oriented x 3, well- developed, appears much older than stated age HEENT: Head is atraumatic, normocephalic. Pupils equal, round. Sclerae is anicteric. NECK: Supple. No JVD. No lymphadenopathy. No thyromegaly. LUNGS: Diminished breath sounds bilaterally otherwise clear to auscultation. No wheezes or rhonchi. No intercostal retractions. HEART: S1, S2 are muffled ABDOMEN: Soft. Thin. Bowel sounds are present. No masses. No tenderness. EXTREMITIES: No pedal edema. No calf tenderness. NEUROLOGICAL: Patient is awake, alert and oriented x3. Cranial nerves 2 through 12 are grossly intact. Diffusely weak Please refer to medication reconciliation sheet for a list of medications. The impression and plan of care has been dictated by Samira Jolley, Nurse Practitioner as directed. Dr. Michelle MD I have performed a history and examination and MDM of this patient, discussed the same with the dictator, and agree with the dictator's assessment and plan as written ,documented as a scribe. Based on total visit time, I have performed more than 50% of the visit. Patient Condition at Discharge: Fair Plan - Discharge Summary Discharge Rx Participant: Yes New Discharge Prescriptions: New HYDROcodone/APAP 5-325MG [[place] 5] 1 each PO Q6HR PRN #28 tab PRN Reason: Pain ceFAZolin [Kefzol] 2 gm IVP Q8HR #120 each Metoprolol Succinate (ER) [Toprol XL] 25 mg PO HS tab Heparin Sodium,Porcine (1 ml) [Heparin Sodium] 5,000 unit SQ Q12HR #60 each Cyclobenzaprine [Flexeril] 10 mg PO TID PRN #60 tab PRN Reason: Muscle Spasm INSULIN LISPRO (HumaLOG) [HumaLOG] 0 unit SQ ACHS each amLODIPine [Norvasc] 5 mg PO DAILY tab Continue busPIRone HCl [Buspar] 10 mg PO BID Pantoprazole [Protonix] 40 mg PO DAILY 5-[id number] 1000mcg 1 cap PO DAILY Rhea Root 550mg 550 mg PO DAILY Alpha Lipoic Acid 600 mg PO DAILY Atorvastatin [Lipitor] 40 mg PO DAILY Cariprazine HCl [Vraylar] 4.5 mg PO DAILY Gabapentin 900 mg PO HS Gabapentin [Neurontin] 600 mg PO BID-W/MEALS icosapent ethyL [Icosapent Ethyl] 1 gm PO QID Losartan/Hydrochlorothiazide [Hyzaar 100-25 Tablet] 1 tab PO DAILY ondansetron HCL [Zofran] 8 mg PO BID Vortioxetine Hydrobromide [Trintellix] 20 mg PO DAILY metFORMIN HCL [Glucophage] 500 mg PO DAILY hydrOXYzine HCL [Atarax] 50 mg PO DAILY Latanoprost [Latanoprost 0.005%] 1 drop BOTH EYES DAILY Discontinued traMADol HCL 100 mg PO TID PRN PRN Reason: Pain Discharge Medication List Pantoprazole [Protonix] 40 mg PO DAILY 04/03/24 [History] busPIRone HCl [Buspar] 10 mg PO BID 04/03/24 [History] hydrOXYzine HCL [Atarax] 50 mg PO DAILY 04/03/24 [History] metFORMIN HCL [Glucophage] 500 mg PO DAILY 04/03/24 [History] 9-Ndjvbp-Qtxiet 1000mcg 1 cap PO DAILY 11/05/24 [History] Alpha Lipoic Acid 600 mg PO DAILY 11/05/24 [History] Atorvastatin [Lipitor] 40 mg PO DAILY 11/05/24 [History] Cariprazine HCl [Vraylar] 4.5 mg PO DAILY 11/05/24 [History] Gabapentin 900 mg PO HS 11/05/24 [History] Gabapentin [Neurontin] 600 mg PO BID-W/MEALS 11/05/24 [History] Rhea Root 550mg 550 mg PO DAILY 11/05/24 [History] Latanoprost [Latanoprost 0.005%] 1 drop BOTH EYES DAILY 11/05/24 [History] Losartan/Hydrochlorothiazide [Hyzaar 100-25 Tablet] 1 tab PO DAILY 11/05/24 [History] Vortioxetine Hydrobromide [Trintellix] 20 mg PO DAILY 11/05/24 [History] icosapent ethyL [Icosapent Ethyl] 1 gm PO QID 11/05/24 [History] ondansetron HCL [Zofran] 8 mg PO BID 11/05/24 [History] Cyclobenzaprine [Flexeril] 10 mg PO TID PRN #60 tab 11/14/24 [Rx] HYDROcodone/APAP 5-325MG [[place] 5] 1 each PO Q6HR PRN #28 tab 11/14/24 [Rx] Heparin Sodium,Porcine (1 ml) [Heparin Sodium] 5,000 unit SQ Q12HR #60 each 11/14/24 [Rx] INSULIN LISPRO (HumaLOG) [HumaLOG] 0 unit SQ ACHS each 11/14/24 [Rx] Metoprolol Succinate (ER) [Toprol XL] 25 mg PO HS tab 11/14/24 [Rx] amLODIPine [Norvasc] 5 mg PO DAILY tab 11/14/24 [Rx] ceFAZolin [Kefzol] 2 gm IVP Q8HR #120 each 11/14/24 [Rx] Follow up Appointment(s)/Referral(s): Joe Fang PAC [PHYSICIAN OUTBOUND SALES SPECIALIST] - 2 Weeks (Patient may follow-up with Joe Fang PA-C or Dr. Charanjit Hudson at [facility] in 2-3 weeks following discharge. ) Krystyna Mueller MD [STAFF PHYSICIAN] - 1 Week Hayde Rodriguez [NON-STAFF] - As Needed (LSO back brace) Barry Mcelroy MD [STAFF PHYSICIAN] - 1 Week Ambulatory/Diagnostic Orders: Basic Metabolic Panel [LAB.AMB] Location: None Selected C Reactive Protein [LAB.AMB] Location: None Selected Complete Blood Count w/diff [LAB.AMB] Location: None Selected Erythrocyte Sedimentation Rate [LAB.AMB] Location: None Selected Activity/Diet/Wound Care/Special Instructions: 1. Patient may shower with Optifoam dressing intact. 2. Patient may remove Optifoam dressing in 3 days and shower without a dressing at that time. 3. Patient should refrain from driving until at least after their first follow- up appointment in the office. 4. Patient should avoid excessive bending, twisting, lifting; avoid overhead lifting; no lifting greater than 10 pounds 5. Take medications as prescribed 6. Patient should avoid anti-inflammatory medications over the next 6 weeks postoperatively 7. Do not soak in tub Activity as tolerated with restrictions per orthopedics and recommend continuing with brace while out of bed Follow-up with primary care provider to establish in the outpatient setting Continue with antibiotics per ID recommendations and has a right upper arm PICC line Patient is a diabetic and blood sugars have been variable, recommend Accu-Cheks AC and at bedtime and sliding scale Continue consistent carb diet Follow-up with orthopedics outpatient Discharge Disposition: TRANSFER TO SNF/ECF
[2024-11-14 15:44] VITALS: BP 115/68; PULSE 89; RESP 18; TEMP 97.9
--- NOTE | 2024-11-14 15:51 | P.PN ---
Subjective Progress Note Date: 11/14/24 Principal diagnosis: Reason for follow-up is L4-5 discitis/osteomyelitis Patient is a 59-year-old female with a past medical history significant for diabetes mellitus reflux hypertension hyperlipidemia presenting to the hospital for evaluation of worsening back pain patient did have a history of chronic back pain for which she did follow-up with and patient has multiple injection to the spine patient did have a CT of the lumbar spine suggestive of discitis osteomyelitis of the L4-5 level prompted this consultation.Patient is status post laminectomy and decompression of L4-5 along with a blood biopsy no significant purulent drainage was noticed procedure completed on 11/12/2024. On today's evaluation that is 11/14/2024, the patient continues to be afebrile, the patient is on room air and breathing comfortably, the Pt denies having any chest pain or cough, the patient denies having any abdominal pain no vomiting or any diarrhea pain to the lower back and lower extremity has slightly decreased in intensity. Patient white count is 11.44, creatinine 0.6 initial culture with staph epi pansensitive repeat cultures are pending Objective - Vital Signs Vital signs: Vital Signs Temp 98.6 F 11/14/24 07:11 Pulse 81 11/14/24 08:25 Resp 18 11/14/24 08:25 BP 129/75 11/14/24 07:11 Pulse Ox 96 11/14/24 07:11 FiO2 Intake & Output 11/13/24 11/14/24 11/14/24 18:59 06:59 18:59 Other: Voiding Method Bedside Commode Toilet Toilet Bedside Commode Bedside Commode # Voids 1 3 2 - Exam GENERAL DESCRIPTION: Middle-age female lying in bed in no distress RESPIRATORY SYSTEM: Unlabored breathing , decreased breath sounds at bases HEART: S1 S2 regular rate and rhythm , ABDOMEN: Soft , no tenderness EXTREMITIES: No edema feet - Labs CBC & Chem 7: 11/14/24 03:39 11/14/24 03:39 Labs: Abnormal Lab Results - Last 24 Hours (Table) 11/13/24 11/13/24 11/14/24 Range/Units 16:26 20:15 03:39 WBC 11.44 H (4.50-10.00) X 10*3/uL RBC 2.73 L (4.10-5.20) X 10*6/uL Hgb 7.9 L (12.0-15.0) g/dL Hct 25.7 L (37.2-46.3) % MCHC 30.7 L (32.0-37.0) g/dL RDW 15.5 H (11.5-14.5) % Immature Gran # 0.07 H (0.00-0.04) X 10*3/uL Monocytes # 2.27 H (0.20-1.00) X 10*3/uL BUN/Creatinine Ratio (12.00-20.00) Ratio POC Glucose (mg/dL) 172 H 202 H (70-110) mg/dL 11/14/24 Range/Units 03:39 WBC (4.50-10.00) X 10*3/uL RBC (4.10-5.20) X 10*6/uL Hgb (12.0-15.0) g/dL Hct (37.2-46.3) % MCHC (32.0-37.0) g/dL RDW (11.5-14.5) % Immature Gran # (0.00-0.04) X 10*3/uL Monocytes # (0.20-1.00) X 10*3/uL BUN/Creatinine Ratio 32.67 H (12.00-20.00) Ratio POC Glucose (mg/dL) (70-110) mg/dL Microbiology - Last 24 Hours (Table) 11/12/24 17:30 Gram Stain - Preliminary Other - Other Wound Culture - Preliminary Assessment and Plan (1) Discitis Current Visit: Yes Status: Acute Code(s): M46.40 - DISCITIS, UNSPECIFIED, SITE UNSPECIFIED SNOMED Code(s): 6672051 (2) Osteomyelitis Current Visit: Yes Status: Acute Code(s): M86.9 - OSTEOMYELITIS, UNSPECIFIED SNOMED Code(s): 12034819 Plan: 1patient presented to hospital with excruciating pain to the lower back rating down to the leg and this patient did have a history of chronic back pain and has received multiple injection to the spine last 1 about a month ago now with abnormal CT suspicious for discitis/osteomyelitis patient however not running any fever did have a normal white count and does not look toxic 2-patient MRI has been suggestive of L4-5 discitis/osteomyelitis patient is status post IR sampling of the area and is status post laminectomy and d ecompression of L4-5 on 11/12/2024 along with a biopsy and culture results will be followed 3patient remains to be afebrile white count slightly up could be reactive postsurgery and is trending down 4we will switch her antibiotic therapy to cefazolin 2 g every 8 hours on the basis of initial culture plan is for 6-week course with weekly monitoring of CRP and sed rate and close outpatient follow-up Dictation was produced using [employer] software. please excuse any grammatical, word or spelling errors. Time with Patient: Less than 30
[2024-11-14] MEDS ORDERED: ceFAZolin 2 GM in DEXTROSE 5% IN WATER 50 ML IVPB SCH (16:00)
== END 2024-11-14 16:30 | DRG 982 ==
LOC: EC 12:11 → 4SSUR 16:13
PROVIDERS: ADMIT Hospitalist; ATTEND Hospitalist
PROC: 01NB0ZZ Release Lumbar Nerve, Open Approach (ICD-10-PCS; principal; 2024-11-12 15:45)
PROC: 00NY0ZZ Release Lumbar Spinal Cord, Open Approach (ICD-10-PCS; principal; 2024-11-12 15:45)
PROC: 0SB20ZZ Excision of Lumbar Vertebral Disc, Open Approach (ICD-10-PCS; principal; 2024-11-12 15:45)
PROC: 05H933Z Insertion of Infusion Device into Right Brachial Vein, Percutaneous Approach (ICD-10-PCS; 2024-11-14)
DX: E11.69 Type 2 diabetes mellitus with other specified complication (principal); M46.26 Osteomyelitis of vertebra, lumbar region; E11.65 Type 2 diabetes mellitus with hyperglycemia; I10 Essential (primary) hypertension; F32.9 Major depressive disorder, single episode, unspecified; M46.46 Discitis, unspecified, lumbar region; M47.26 Other spondylosis with radiculopathy, lumbar region; M47.817 Spondylosis without myelopathy or radiculopathy, lumbosacral region; M48.061 Spinal stenosis, lumbar region without neurogenic claudication; E78.5 Hyperlipidemia, unspecified; K21.9 Gastro-esophageal reflux disease without esophagitis; K59.00 Constipation, unspecified; F41.9 Anxiety disorder, unspecified; Z79.84 Long term (current) use of oral hypoglycemic drugs; Z79.899 Other long term (current) drug therapy; Z88.8 Allergy status to other drugs, medicaments and biological substances
CPT/HCPCS: 36415; 36573; 72100; 72131; 72158; 72192; 75989; 80048; 80053; 80202; 82565; 83605; 83735; 85025; 85610; 85652; 85730; 86140; 87040; 87070; 87075; 87077; 87102; 87186; 87205; 88307; 88311; 89050; 93005; 96365; 96366; 96367; 96372; 96375; 96376; 99291